=== PATIENT | female | born 1950 | race Caucasian/White ===

== ENCOUNTER 2023-03-15 05:11 | Outpatient (RCR) | payer MEDICARE, SELFPAY | END 2023-04-13 23:59 | disposition home or self-care (01) | LOC: MM 05:11 | PROVIDERS: PCP Internal Medicine; Visit Provider Internal Medicine | DX: Z51.81 Encounter for therapeutic drug level monitoring (principal); Z79.01 Long term (current) use of anticoagulants ==

== ENCOUNTER 2023-04-18 10:48 | Outpatient (RCR) | payer MEDICARE, SELFPAY | END 2023-05-14 16:44 | disposition home or self-care (01) | LOC: MM 10:48 | PROVIDERS: PCP Internal Medicine; Visit Provider Internal Medicine | DX: Z51.81 Encounter for therapeutic drug level monitoring (principal); Z79.01 Long term (current) use of anticoagulants ==

== ENCOUNTER 2023-05-15 08:56 | Outpatient (RCR) | payer MEDICARE, SELFPAY | END 2023-06-14 15:46 | disposition home or self-care (01) | LOC: MM 08:56 | PROVIDERS: Visit Provider Internal Medicine | DX: Z51.81 Encounter for therapeutic drug level monitoring (principal); Z79.01 Long term (current) use of anticoagulants | CPT/HCPCS: 85610; G0463 ==

== ENCOUNTER 2023-06-15 07:56 | Outpatient (RCR) | payer MEDICARE, SELFPAY | END 2023-07-13 16:30 | disposition home or self-care (01) | LOC: MM 07:56 | PROVIDERS: PCP Internal Medicine; Visit Provider Internal Medicine | DX: Z51.81 Encounter for therapeutic drug level monitoring (principal); Z79.01 Long term (current) use of anticoagulants; I82.409 Acute embolism and thrombosis of unspecified deep veins of unspecified lower extremity | CPT/HCPCS: 85610; G0463 ==

== ENCOUNTER 2023-06-15 09:45 | Outpatient (OUT) | payer MEDICARE, SELFPAY ==
--- NOTE | 2023-06-15 10:01 | MM_ITS ---
Patient: TA HIRSCH Exam Date: 06/15/2023 : 1950 Gender:F Ordering : DR Shawn Hirsch D.O. Admission #: [id number] Family : Order #: [id number] CLICK HERE TO VIEW EXAM RADIOLOGY REPORT PROCEDURE: MM TOMOSYNTHESIS SCREENING BI COMPARISON: MG MAMM SCREEN 3D [facility] CAD, 06/14/2022. MG MAMM SCREEN 3D [facility] CAD, 06/01/2021. INDICATIONS: Screening Calculator Name NCI Breast Cancer Risk Assessment Tool 5 Year Breast Cancer Risk 3.40% Lifetime Breast Cancer Risk 9.30% Personal Breast Cancer No Personal Ovarian Cancer No Treatments None Family Cancers Mother with breast cancer at age 52; Father with gallbladder cancer at age 76; Sister with uterine cancer at age 64. LOCATION: [facility] BREAST COMPOSITION: Scattered areas fibroglandular density. FINDINGS: DIAGNOSTIC CATEGORY 1--NEGATIVE. NO CHANGE FROM COMPARISON ASSESSMENT. Scattered benign-appearing calcifications are present. Scattered benign-appearing lymph nodes are present. RIGHT BREAST: No significant suspicious finding. LEFT BREAST: No significant suspicious finding. RECOMMENDATIONS: ROUTINE MAMMOGRAM AND CLINICAL EVALUATION IN 12 MONTHS. PLEASE NOTE: A NORMAL MAMMOGRAM DOES NOT EXCLUDE THE POSSIBILITY OF BREAST CANCER. A CLINICALLY SUSPICIOUS PALPABLE LUMP SHOULD BE BIOPSIED. Dictated by: Heber Marin MD on 06/15/2023 at 14:55 Approved by: Heber Marin MD on 06/15/2023 at 14:56
[2023-06-15 10:52] LABS: Basophils Absolute Auto 0.1 10^3/uL (0.0-0.1); Basophils Percent Auto 0.9 % (0.2-2.0); Eosinophils Absolute Auto 0.1 10^3/uL (0.0-0.7); Eosinophils Percent Auto 1.3 % (0.9-7.0); Hematocrit 39.7 % (36.0-48.0); Hemoglobin 12.5 g/dL (12.0-16.0); Immature Granulocytes Abs Auto 0.02 10^3/uL (0.00-0.03); Immature Granulocytes Pct Auto 0.4 % (0.0-0.5); Lymphocytes Absolute Auto 1.2 10^3/uL (1.2-3.8); Lymphocytes Percent Auto 21.5 % (20.5-60.0); Mean Corpuscular HGB Conc 31.5 g/dL (29.9-35.2); Mean Corpuscular Hemoglobin 30.2 pg (26.7-34.0); Mean Corpuscular Volume 95.9 fL (81.0-99.0); Mean Platelet Volume 9.9 fL (9.5-13.5); Monocytes Absolute Auto 0.5 10^3/uL (0.3-0.8); Monocytes Percent Auto 9.5 % (1.7-12.0); Neutrophils Absolute Auto 3.7 10^3/uL (1.4-6.5); Neutrophils Percent Auto 66.4 % (43.0-75.0); Platelet Count 154 10^3/uL (150-450); Red Blood Count 4.14 10^6/uL (4.20-5.40); Red Cell Distribution Width 12.5 % (11.0-15.0); White Blood Count 5.6 10^3/uL (4.0-11.0)
[2023-06-15 11:18] LABS: Alanine Aminotransferase 22 U/L (14-59); Anion Gap 7.7; BUN Creatinine Ratio 24.5; Calcium 9.4 mg/dL (8.5-10.1); Chloride 108 mmol/L (98-107); Chol HDL Ratio 2.9; Cholesterol 209 mg/dL (<=200); Estimated GFR (African America 45 (>=60); Estimated GFR (Non-African Ame 37 (>=60); Glucose 96 mg/dL (74-106); HDL Cholesterol 72 mg/dL (40-60); Potassium 4.7 mmol/L (3.5-5.1); Sodium 139 mmol/L (136-145); Thyroid Stimulating Hormone 2.121 uIU/mL (0.358-3.740); Triglycerides 150 mg/dL (<=150)
== END 2023-06-15 09:46 | disposition home or self-care (01) ==
LOC: LAB 09:46
PROVIDERS: PCP Internal Medicine; Visit Provider Internal Medicine
DX: E78.00 Pure hypercholesterolemia, unspecified (principal); I10 Essential (primary) hypertension; Z12.31 Encounter for screening mammogram for malignant neoplasm of breast; Z79.899 Other long term (current) drug therapy; Z80.3 Family history of malignant neoplasm of breast; Z80.8 Family history of malignant neoplasm of other organs or systems
CPT/HCPCS: 36415; 77063; 77067; 80048; 80061; 84443; 84460; 85025

== ENCOUNTER 2023-07-16 01:25 | Outpatient (RCR) | payer MEDICARE, SELFPAY | END 2023-08-14 17:09 | disposition home or self-care (01) | LOC: MM 01:25 | PROVIDERS: PCP Internal Medicine; Visit Provider Internal Medicine | DX: Z51.81 Encounter for therapeutic drug level monitoring (principal); Z79.01 Long term (current) use of anticoagulants; I82.409 Acute embolism and thrombosis of unspecified deep veins of unspecified lower extremity | CPT/HCPCS: 85610; G0463 ==

== ENCOUNTER 2023-08-15 00:32 | Outpatient (RCR) | payer MEDICARE, SELFPAY | END 2023-09-13 16:34 | disposition home or self-care (01) | LOC: MM 00:32 | PROVIDERS: PCP Internal Medicine; Visit Provider Internal Medicine | DX: Z51.81 Encounter for therapeutic drug level monitoring (principal); Z79.01 Long term (current) use of anticoagulants | CPT/HCPCS: 85610; G0463 ==

== ENCOUNTER 2023-09-14 08:48 | Outpatient (RCR) | payer MEDICARE, SELFPAY | END 2023-10-12 14:43 | disposition home or self-care (01) | LOC: MM 08:48 | PROVIDERS: PCP Internal Medicine; Visit Provider Internal Medicine | DX: Z51.81 Encounter for therapeutic drug level monitoring (principal); Z79.01 Long term (current) use of anticoagulants; I82.409 Acute embolism and thrombosis of unspecified deep veins of unspecified lower extremity | CPT/HCPCS: 85610; G0463 ==

== ENCOUNTER 2023-10-15 00:24 | Outpatient (RCR) | payer MEDICARE, SELFPAY | END 2023-11-14 15:33 | disposition home or self-care (01) | LOC: MM 00:24 | PROVIDERS: PCP Internal Medicine; Visit Provider Internal Medicine | DX: Z51.81 Encounter for therapeutic drug level monitoring (principal); Z79.01 Long term (current) use of anticoagulants | CPT/HCPCS: 85610; G0463 ==

== ENCOUNTER 2023-11-15 01:14 | Outpatient (RCR) | payer MEDICARE, SELFPAY | END 2023-12-13 17:04 | disposition home or self-care (01) | LOC: MM 01:14 | PROVIDERS: PCP Internal Medicine; Visit Provider Internal Medicine | DX: Z51.81 Encounter for therapeutic drug level monitoring (principal); Z79.01 Long term (current) use of anticoagulants; I82.409 Acute embolism and thrombosis of unspecified deep veins of unspecified lower extremity | CPT/HCPCS: 85610; G0463 ==

== ENCOUNTER 2023-12-14 01:00 | Outpatient (RCR) | payer MEDICARE, SELFPAY | END 2024-01-11 12:57 | disposition home or self-care (01) | LOC: MM 01:00 | PROVIDERS: PCP Internal Medicine; Visit Provider Internal Medicine | DX: Z51.81 Encounter for therapeutic drug level monitoring (principal); Z79.01 Long term (current) use of anticoagulants; I82.409 Acute embolism and thrombosis of unspecified deep veins of unspecified lower extremity | CPT/HCPCS: 85610; G0463 ==

== ENCOUNTER 2024-01-14 03:10 | Outpatient (RCR) | payer MEDICARE, SELFPAY | END 2024-02-12 17:42 | disposition home or self-care (01) | LOC: MM 03:10 | PROVIDERS: PCP Internal Medicine; Visit Provider Internal Medicine | DX: Z51.81 Encounter for therapeutic drug level monitoring (principal); Z79.01 Long term (current) use of anticoagulants; I82.409 Acute embolism and thrombosis of unspecified deep veins of unspecified lower extremity | CPT/HCPCS: 85610; G0463 ==

== ENCOUNTER 2024-01-25 09:41 | Outpatient (OUT) | payer MEDICARE, MEDICAID, SELFPAY ==
--- OUTSIDE RECORDS SUMMARY | 2024-01-25 10:02 | XMS_ITS | CCD ---
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 Role Phone Shama Nice Unavailable Shawn Hirsch Unavailable FAWWAD, ADHIKARI H Attending Unavailable FAWWAD, ADHIKARI H Admitting Unavailable BALL, DR BLAKE Primary Care Unavailable FAWWAD, ADHIKARI H Attending Unavailable FAWWAD, ADHIKARI H Admitting Unavailable BALL, DR BLAKE Primary Care Unavailable FAWWAD, ADHIKARI H Attending Unavailable FAWWAD, ADHIKARI H Admitting Unavailable BALL, DR BLAKE Primary Care Unavailable BALL, DR BLAKE Primary Care Unavailable BALL, DR BLAKE Attending Unavailable BALL, DR BLAKE Admitting Unavailable FAWWAD, ADHIKARI H Attending Unavailable FAWWAD, ADHIKARI H Admitting Unavailable BALL, DR BLAKE Primary Care Unavailable FAWWAD, ADHIKARI H Attending Unavailable FAWWAD, ADHIKARI H Admitting Unavailable BALL, DR BLAKE Primary Care Unavailable FAWWAD, ADHIKARI H Attending Unavailable FAWWAD, ADHIKARI H Admitting Unavailable BALL, DR BLAKE Primary Care Unavailable FAWWAD, ADHIKARI H Attending Unavailable FAWWAD, ADHIKARI H Admitting Unavailable BALL, DR BLAKE Primary Care Unavailable FAWWAD, ADHIKARI H Attending Unavailable BALL, DR BLAKE Primary Care Unavailable FAWWAD, ADHIKARI H Admitting Unavailable BALL, DR BLAKE Consulting Unavailable BALL, DR BLAKE Attending Unavailable BALL, DR BLAKE Referring Unavailable BALL, DR BLAKE Admitting Unavailable BALL, DR BLAKE Primary Care Unavailable BALL, DR BLAKE Consulting Unavailable BALL, DR BLAKE Attending Unavailable BALL, DR BLAKE Admitting Unavailable BALL, DR BLAKE Primary Care Unavailable WEST, DR RODOLFO Khan Consulting Unavailable FAWWAD, ADHIKARI H Attending Unavailable FAWWAD, ADHIKARI H Admitting Unavailable BALL, DR BLAKE Primary Care Unavailable SHAIKH Graciela SMITH Attending Unavailable SHAIKH Graciela SMITH Admitting Unavailable DR SHAWN HIRSCH Primary Care Unavailable SHAIKH Graciela SMITH Attending Unavailable SHAIKH Graciela SMITH Admitting Unavailable DR SHAWN HIRSCH Primary Care Unavailable ISABEL NGUYEN Attending Unavailable Allergies Allergy Classification Reported Allergen(s) Allergy Type Date of Onset Reaction(s) Facility (10 sources) Iodine Drug Allergy rash and throat swelling [facility] Other (1 source) Iodine and Iodide Containing Products Drug allergy (disorder) [facility] Repository (4 sources) patient allergy list reviewed by nurse or physicia Propensity to adverse reactions Comment:Done [facility] Other (4 sources) Allergies Reconciled Propensity to adverse reactions Unknown [facility] Other Medications Current Medications Medication Drug Class(es) Dates Sig (Normalized) Sig (Original) amLODIPine 5 mg oral tablet (2 sources) Dihydropyridine Calcium Channel Em Start: 01-19-2024 take 5 mg by mouth once daily Amlodipine Active 5 MG PO Daily January 19, 2024 12:00am Start: 10-24-2023 take 1 tablet by johnny th every twenty-four hours amLODIPine Besylate 5 MG 1 tablet Orally Once a day for 30 days Oct, Active clonazePAM (2 sources) Benzodiazepine clonazePAM Activ e fluticasone propionate 0.05 mg/actuat metered dose nasal spray (13 sources) Corticosteroid Start: 01-19-2024 Fluticasone Propionate Active 1 SPRAY INTRANASAL Twice daily January 19, 2024 12:00am Start: 06-17-2019 take 1 spray(s) nasa l route twice daily Fluticasone Propionate 50 MCG/ACT 1 spray in each nostril Nasally Twice a day for 10 days Jun, Active Start: 06-17-2019 take 1 spray(s) nasa l route twice daily Fluticasone Propionate 50 MCG/ACT 1 spray in each nostril Nasally Twice a day for 10 days Jun, Active Fluticasone Prop ionate Active hydroCHLOROthiazide / Lisinopril (2 sources) Thiazide Diuretic, Angiotensin Converting Enzyme Inhibitor Lisinopril-hydroCHLO ROthiazide Active lisinopril 5 mg oral tablet (7 sources) Angiotensin Converting Enzyme Inhibitor Star t: 05-15 23 take 1 tablet by mouth every twenty-fou r hours Lisinopril 5 MG 1 tablet Orally Once a day for 100 days May, Active warfarin sodium 5 mg oral tablet (11 sources) Vitamin K Antagonist Star t: 04-03 24 Warfarin Active 5 MG PO As Directed January 19, 2024 12:00am Warfarin Sodium 5 MG 1 tablet Orally as directed Active Warfarin Sodium Active Completed/Discontinued Medications Medication Drug Class(es) Dates Sig (Normalized) Sig (Original) Calcium (10 sources) Phosphate Binder, Calcium Calcium Not-Taking/P RN Calcium Not-Taki ng Calcium Active Problems Active Problems Problem Classification Problem Date Documented Da te Episodic/Chronic Anxiety disorders (15 sources) Generalized anxiety disorder; Translations: [Generalized anxiety disorder] Chronic Cardiac dysrhythmias (11 sources) Paroxysmal atrial fibrillation; Translations: [Paroxysmal atrial fibrillation] Chronic Chronic kidney disease (10 sources) Chronic kidney disease stage 3B ; Translations: [Stage 3b chronic kidney disease] 01-19-2024 Chronic Chronic ulcer of skin (4 sources) Ulcer of lower extremity; Translations: [Ulcer of lower limb, unspecified] Onset: 02-14-2016 Chronic Deficiency and other anemia (13 sources) Anemia; Translations: [Anemia, unspecified] 01-19-2024 Episodic Disorders of lipid metabolism (15 sources) Pure hypercholesterolemia ; Translations: [Pure hypercholesterolemia , unspecified] Chronic Essential hypertension (20 sources) Essential hypertension; Translations: [Unspecified essential hypertension] Chronic Glaucoma (13 sources) Glaucoma; Translations: [Unspecified glaucoma] 01-19-2024 Chronic Hypertension with complications and secondary hypertension (16 sources) Hypertensive chronic kidney disease with stage 1 through stage 4 chronic kidney disease, or unspecified chronic kidney disease; Translations: [Malignant hypertensive chronic kidney disease] Onset: 06-15-2022 Chronic Immunizations and screening for infectious disease (4 sources) Vaccination given; Translations: [Encounter for immunization] Episodic Mood disorders (12 sources) Major depression single episode, in partial remission; Translations: [Major depressive disorder, single episode, in partial or unspecified remission] Onset: 10-19-2015 Chronic Nutritional deficiencies (4 sources) Vitamin D deficiency; Translations: [Vitamin D deficiency, unspecified] Onset: 08-31-2018 Chronic Osteoarthritis (4 sources) Osteoarthritis; Translations: [Polyosteoarthritis, unspecified] Chronic Other aftercare (5 sources) Encounter for therapeutic drug level monitoring; Translations: [facility]] Onset: 02-10-2023 Episodic Other aftercare (1 source) assistant terminal manager (current) use of anticoagulants; Translations: [CARE HOME CURRNT USE ANTICOAGULANTS] Onset: 03-14-2023 Episodic Other aftercare (4 sources) Long-term current use of drug therapy; Translations: [Other terminal operator (current) drug therapy] Episodic Other circulatory disease (2 sources) Raynaud's phenomenon; Translations: [Raynaud's syndrome without gangrene] 01-19-2024 Chronic Other circulatory disease (2 sources) Raynaud's syndrome without gangrene; Translations: [Raynaud's syndrome] Chronic Other circulatory disease (4 sources) Orthostatic hypotension; Translations: [Orthostatic hypotension] Episodic Other diseases of veins and lymphatics (4 sources) Chronic venous hypertension (idiopathic) with ulcer of unspecified lower extremity; Translations: [Chronic venous hypertension (idiopathic) with ulcer of unspecified lower extremity] Onset: 02-14-2016 Chronic Other diseases of veins and lymphatics (17 sources) Peripheral venous insufficiency; Translations: [Venous insufficiency (chronic) (peripheral)] Onset: 01-28-2016 01-19-2024 Episodic Other diseases of veins and lymphatics (2 sources) Venous insufficiency (chronic) (peripheral); Translations: [Venous (peripheral) insufficiency, unspecified] Episodic Other female genital disorders (4 sources) Abnormal uterine bleeding; Translations: [Abnormal uterine and vaginal bleeding, unspecified] Onset: 12-03-2013 Chronic Other gastrointestinal disorders (4 sources) Irritable bowel syndrome; Translations: [Irritable bowel syndrome] Chronic Other inflammatory condition of skin (9 sources) Lichen simplex chronicus; Translations: [Lichen simplex chronicus] 01-19-2024 Episodic Other injuries and conditions due to external causes (4 sources) History of fall; Translations: [History of falling] Episodic Other lower respiratory disease (9 sources) Nodule of lung; Translations: [Solitary pulmonary nodule] 01-19-2024 Episodic Other lower respiratory disease (4 sources) Solitary nodule of lung; Translations: [Solitary pulmonary nodule] Episodic Other nutritional; endocrine; and metabolic disorders (5 sources) Obesity; Translations: [Obesity, unspecified] 01-23-2024 Chronic Other nutritional; endocrine; and metabolic disorders (16 sources) Body mass index 40+ - severely obese; Translations: [Body Mass Index 40.0-44.9, adult] Onset: 01-12-2016 Chronic Other nutritional; endocrine; and metabolic disorders (4 sources) Obese class II; Translations: [Body mass index 39.0-39.9, adult] Onset: 01-12-2016 Chronic Other nutritional; endocrine; and metabolic disorders (8 sources) Body mass index 30+ - obesity; Translations: [Body mass index (BMI) 37.0-37.9, adult] Chronic Other nutritional; endocrine; and metabolic disorders (8 sources) Severe obesity; Translations: [Morbid (severe) obesity due to excess calories] Chronic Other nutritional; endocrine; and metabolic disorders (1 source) Morbid (severe) obesity due to excess calories Chronic Other nutritional; endocrine; and metabolic disorders (1 source) Body mass index (BMI) 37.0-37.9, adult Chronic Other nutritional; endocrine; and metabolic disorders (1 source) Obesity, unspecified; Translations: [Obesity, unspecified] 01-23-2024 Chronic Other upper respiratory infections (20 sources) Acute maxillary sinusitis; Translations: [Acute maxillary sinusitis] Onset: 07-27-2014 Episodic Otitis media and related conditions (6 sources) Acute otitis media with effusion; Translations: [Acute otitis media with effusion] Episodic Phlebitis; thrombophlebitis and thromboembolism (1 source) Chronic embolism and thrombosis of unspecified deep veins of unspecified lower extremity; Translations: [CHR EMB THROMB UNS DP VN UNS LW EXT] Onset: 07-17-2022 Chronic Phlebitis; thrombophlebitis and thromboembolism (20 sources) Acute embolism and thrombosis of unspecified deep veins of unspecified lower extremity; Translations: [Acute deep vein thrombosis of lower limb] Onset: 12-06-2014 Episodic Residual codes; unclassified (17 sources) Obstructive sleep apnea syndrome; Translations: [Obstructive sleep apnea (adult) (pediatric)] Onset: 11-07-2017 01-19-2024 Chronic Residual codes; unclassified (13 sources) Periodic limb movement disorder; Translations: [Periodic limb movement disorder] 01-19-2024 Chronic Residual codes; unclassified (2 sources) Obstructive sleep apnea (adult) (pediatric); Translations: [Obstructive sleep apnea (adult)(pediatric)] Chronic Residual codes; unclassified (4 sources) Postmenopausal state; Translations: [Asymptomatic menopausal state] Episodic Spondylosis; intervertebral disc disorders; other back problems (13 sources) Lumbosacral spondylosis without myelopathy; Translations: [Spondylosis without myelopathy or radiculopathy, lumbar region] 01-19-2024 Chronic Unclassified (1 source) CHRN KIDNEY DISEASE STG 3 UNSP; Translations: [CHRN KIDNEY DISEASE STG 3 UNSP] Onset: 06-16-2022 Past or Other Problems Problem Classification Problem Date Documented Da te Episodic/Chronic Acute bronchitis (4 sources) Acute bronchitis; Translations: [Acute bronchitis, unspecified] Onset: 07-27-2014 Episodic Bacterial infection; unspecified site (4 sources) Bacterial infectious disease; Translations: [Bacterial infection, unspecified, in conditions classified elsewhere and of unspecified site] Onset: 12-10-2017 Episodic Chronic kidney disease (1 source) Chronic kidney disease Conditions associated with dizziness or vertigo (4 sources) Benign paroxysmal positional vertigo; Translations: [Benign paroxysmal vertigo, left ear] Resolved: 02-24-2021 Episodic Diseases of mouth; excluding dental (4 sources) Aphthous ulcer of mouth; Translations: [Oral aphthae] Onset: 05-20-2018 Episodic Genitourinary symptoms and ill-defined conditions (8 sources) Dysuria; Translations: [Dysuria] Onset: 06-11-2015 Episodic Intracranial injury (4 sources) Concussion with no loss of consciousness; Translations: [Concussion without loss of consciousness, initial encounter] Resolved: 12-20-2020 Episodic Malaise and fatigue (4 sources) Malaise and fatigue; Translations: [Other malaise and fatigue] Onset: 01-03-2017 Episodic Other aftercare (1 source) Other prison (current) drug therapy; Translations: [OTH BIOFUELS TECHNOLOGY DEVELOPMENT MANAGER CURRENT DRUG THERAPY] Onset: 06-16-2022 Episodic Other connective tissue disease (4 sources) Fibromyalgia; Translations: [Fibromyalgia] Onset: 06-26-2018 Episodic Other lower respiratory disease (8 sources) Dyspnea; Translations: [Dyspnea, unspecified] Onset: 11-27-2014 Episodic Other nutritional; endocrine; and metabolic disorders (4 sources) Hypercalcemia; Translations: [Hypercalcemia] Resolved: 11-29-2021 Chronic Other screening for suspected conditions (not mental disorders or infectious disease) (8 sources) Encounter for screening mammogram for malignant neoplasm of breast; Translations: [Coag./bleeding tests abnormal] Onset: 04-13-2016 Episodic Other skin disorders (4 sources) Actinic keratosis; Translations: [Actinic keratosis] Onset: 05-19-2015 Episodic Residual codes; unclassified (1 source) Family history of malignant neoplasm of breast; Translations: [FAMILY HX MALIG NEOPLASM OF BREAST] Onset: 06-16-2022 Episodic Residual codes; unclassified (1 source) Family history of malignant neoplasm of other genital organs; Translations: [FAM HX MALIG NEOPLSM OTH GENIT ORGN] Onset: 06-16-2022 Episodic Residual codes; unclassified (1 source) Family history of malignant neoplasm of digestive organs; Translations: [FAM HX MALIG NEOPLASM DIGESTIV ORGN] Onset: 06-16-2022 Episodic Residual codes; unclassified (4 sources) Requires influenza virus vaccination; Translations: [Need for prophylactic vaccination and inoculation, Influenza] Onset: 07-09-2018 Episodic Residual codes; unclassified (4 sources) Edema; Translations: [Edema] Onset: 11-27-2014 Episodic Skin and subcutaneous tissue infections (4 sources) Cellulitis and abscess of lower leg; Translations: [Cellulitis and abscess of leg, except foot] Onset: 01-28-2016 Episodic Sprains and strains (16 sources) Sprain of shoulder and upper arm; Translations: [Strain of unspecified muscle, fascia and tendon at shoulder and upper arm level, right arm, initial encounter] Onset: 05-20-2018 Resolved: 11-29-2021 Episodic Superficial injury; contusion (8 sources) Contusion of right shoulder; Translations: [Contusion of right shoulder, initial encounter] Onset: 04-13-2016 Resolved: 12-20-2020 Episodic Unclassified (1 source) Contact with and (suspected) exposure to covid-19 Z20.822 Onset: 06-17-2022 Resolved: 06-17-2022 Results Test Name Value Interpretation Reference Range Facility SARS-CoV-2 (COVID-19) RNA NA A+probe Ql (Resp)on 06-17-2022 SARS-CoV-2 (COVID-19) RNA MARLON+probe Ql (Unsp spec) Negative [facility] Other CBC AUTO DIFFon 06-15-2022 BASO # 0.0 103/ul Normal 0.0-0.1 [facility] Comment on above: Performed By: #### C BC #### [facility] [address] [place] [address] Dr. Perez Jaimes Basophils/100 WBC (Bld) 0.5 % Normal 0.2-2.0 [facility] Comment on above: Performed By: #### C BC #### [facility] [address] [place] [address] Dr. Perez Jaimes EO # 0.1 103/ul Normal 0.0-0.7 [facility] Comment on above: Performed By: #### C BC #### [facility] [address] [place] [address] Dr. Perez Jaimes Eosinophils/100 WBC (Bld) 1.1 % Normal 0.9-7.0 [facility] Comment on above: Performed By: #### C BC #### [facility] [address] [place] [address] Dr. Perez Jaimes Erythrocyte distribution width (RBC) [Ratio] 12.6 % Normal 11.0-15.0 [facility] Comment on above: Performed By: #### C BC #### [facility] [address] [place] [address] Dr. Perez Jaimes Hematocrit (Bld) [Volume fraction] 41.3 % Normal 36.0-48.0 [facility] Comment on above: Performed By: #### C BC #### [facility] [address] [place] [address] Dr. Perez Jaimes Hemoglobin (Bld) [Mass/Vol] 12.9 g/dL Normal 12.0-16.0 [facility] Comment on above: Performed By: #### C BC #### [facility] [address] [place] [address] Dr. Perez Jaimes IG # 0.02 10e3/ul Normal 0.00-0.03 [facility] Comment on above: Performed By: #### C BC #### [facility] [address] [place] [address] Dr. Perez Jaimes IG % 0.3 % Normal 0.0-0.5 [facility] Comment on above: Performed By: #### C BC #### [facility] [address] [place] [address] Dr. Perez Jaimes LYMPH # 1.3 103/ul Normal 1.2-3.8 [facility] Comment on above: Performed By: #### C BC #### [facility] [address] [place] [address] Dr. Perez Jaimes Lymphocytes/100 WBC (Bld) 20.2 % Critically low 20.5-60.0 [facility] Comment on above: Performed By: #### C BC #### [facility] [address] [place] [address] Dr. Perez Jaimes MANUAL DIFF REQ NO Normal [facility] Comment on above: Performed By: #### C BC #### [facility] [address] [place] [address] Dr. Perez Jaimes MCH (RBC) [Entitic mass] 29.5 pg Normal 26.7-34.0 [facility] Comment on above: Performed By: #### C BC #### [facility] [address] [place] [address] Dr. Perez Jaimes MCHC (RBC) [Mass/Vol] 31.2 g/dL Normal 29.9-35.2 [facility] Comment on above: Performed By: #### C BC #### [facility] [address] [place] [address] Dr. Perez Jaimes MCV (RBC) [Entitic vol] 94.5 fL Normal 81.0-99.0 [facility] Comment on above: Performed By: #### C BC #### [facility] [address] [place] [address] Dr. Perze Jaimes MONO # 0.5 103/ul Normal 0.3-0.8 [facility] Comment on above: Performed By: #### C BC #### [facility] [address] [address] [address] Perez Jaimes Monocytes/100 WBC (Bld) 8.7 % Normal 1.7-12.0 [facility] Comment on above: Performed By: #### C BC #### [facility] [address] [address] [address] Perez Jaimes NEUT # 4.3 103/ul Normal 1.4-6.5 [facility] Comment on above: Performed By: #### C BC #### [facility] [address] [address] [address] Perez Jaimes Neutrophils/100 WBC (Bld) 69.2 % Normal 43.0-75.0 [facility] Comment on above: Performed By: #### C BC #### [facility] [address] [place] [address] Dr. Perez Jaimes Platelet mean volume (Bld) [Entitic vol] 9.6 fL Normal 9.5-13.5 [facility] Comment on above: Performed By: #### C BC #### [facility] [address] [place] [address] Dr. Perez Jaimes PLT 178 103/ul Normal 150-450 [facility] Comment on above: Performed By: #### C BC #### [facility] [address] [place] [address] Dr. Perez Jaimes RBC 4.37 106/ul Normal 4.20-5.40 [facility] Comment on above: Performed By: #### C BC #### [facility] [address] [place] [address] Dr. Perez Jaimes WBC 6.2 103/ul Normal 4.0-11.0 [facility] Comment on above: Performed By: #### C BC #### [facility] [address] [place] [address] Dr. Perez Jaimes LIPID PROFILEon 06-15-2022 CHOL-HDL RATIO NORM SEE BELOW Normal [facility] Comment on above: Result Comment: 3.3 - 4.4 LOW RISK 4.4 - 7.1 AVERAGE RISK 7.1 - 11.0 MODERATE RISK >11.0 HIGH RISK Performed By: #### B MP, LIPID #### [facility] [address] [place] [address] Dr. Perez Jaimes Cholesterol [Mass/Vol] 214 mg/dL Critically high <=200 [facility] Comment on above: Performed By: #### B MP, LIPID #### [facility] [address] [address] [address] Perez Jaimes Cholesterol in HDL [Mass/Vol] 70 mg/dL Critically high 40-60 [facility] Comment on above: Performed By: #### B MP, LIPID #### [facility] [address] [place] [address] Dr. Perez Jaimes Cholesterol in LDL [Mass/Vol] 109.4 mg/dL Normal [facility] Comment on above: Performed By: #### B MP, LIPID #### [facility] [address] [place] [address] Dr. Perez Jaimes Cholesterol.total/ Cholesterol in HDL [Mass ratio] 3.1 {ratio} Normal [facility] Comment on above: Performed By: #### B MP, LIPID #### [facility] [address] [place] [address] Dr. Perez Jaimes HDL NORMAL > or = 60 mg/dl - LOW CARDIOVASCULAR RISK <40 mg/dl - HIGH CARDIOVASCULAR RISK Normal [facility] Comment on above: Performed By: #### B MP, LIPID #### [facility] [address] [place] [address] Dr. Perez Jaimes LDL CALC NORMAL SEE BELOW Normal [facility] Comment on above: Result Comment: <100 mg/dl OPTIMAL 100 - 129 mg/dl NEAR OR ABOVE OPTIMAL 130 - 159 mg/dl BORDERLINE HIGH 160 - 189 mg/dl HIGH >190 mg/dl VERY HIGH Performed By: #### B MP, LIPID #### [facility] [address] [place] [address] Dr. Perez Jaimes Triglyceride [Mass/Vol] 173 mg/dL Critically high <=150 [facility] Comment on above: Performed By: #### B MP, LIPID #### [facility] [address] [address] [address] Perez Jaimes VLDL CALC 34.6 mg/dL Normal [facility] Comment on above: Performed By: #### B MP, LIPID #### [facility] [address] [address] [address] Perez Jaimes PROF CHEM 8 (BAS METB)on Anion gap [Moles/Vol] 12.6 mmol/L Normal [facility] Comment on above: Performed By: #### B MP, LIPID #### [facility] [address] [address] [address] Perez Jaimes Calcium [Mass/Vol] 9.7 mg/dL Normal 8.5-10.1 [facility] Comment on above: Performed By: #### B MP, LIPID #### [facility] [address] [place] [address] Dr. Perez Jaimes Chloride [Moles/Vol] 103 mmol/L Normal 98-107 [facility] Comment on above: Performed By: #### B MP, LIPID #### [facility] [address] [place] [address] Dr. Perez Jaimes CO2 [Moles/Vol] 27.0 mmol/L Normal 21.0-32.0 [facility] Comment on above: Performed By: #### B MP, LIPID #### [facility] [address] [place] [address] Dr. Perez Jaimes Creatinine [Mass/Vol] 1.32 mg/dL Critically high 0.55-1.02 [facility] Comment on above: Performed By: #### B MP, LIPID #### [facility] [address] [place] [address] Dr. Perez Jaimes EGFR-AF [place] 48 mL/min/1.73m2 Critically low >=60 [facility] Comment on above: Performed By: #### B MP, LIPID #### [facility] [address] [place] [address] Dr. Perez Jaimes EGFR-NON AF [place] 40 mL/min/1.73m2 Critically low >=60 [facility] Comment on above: Performed By: #### B MP, LIPID #### [facility] [address] [address] [address] Perez Jaimes Glucose [Mass/Vol] 99 mg/dL Normal 74-106 [facility] Comment on above: Performed By: #### B MP, LIPID #### [facility] [address] [address] [address] Perez Jaimes Potassium [Moles/Vol] 4.6 mmol/L Normal 3.5-5.1 [facility] Comment on above: Performed By: #### B MP, LIPID #### [facility] [address] [address] [address] Perez Jaimes Sodium [Moles/Vol] 138 mmol/L Normal 136-145 [facility] Comment on above: Performed By: #### B MP, LIPID #### [facility] [address] [address] [address] Perez Jaimes Urea nitrogen [Mass/Vol] 31.0 mg/dL Critically high 7.0-18.0 [facility] Comment on above: Performed By: #### B MP, LIPID #### [facility] [address] [address] [address] Perez Jaimes Urea nitrogen/Creatinin e [Mass ratio] 23.5 mg/mg Normal [facility] Comment on above: Performed By: #### B MP, LIPID #### [facility] [address] [address] [address] Perez Jaimes MG MAMM SCREEN 3D WAI CADon 06-14-2022 MG MAMM SCREEN 3D WAI CAD Patient: SHITAL HIRSCH Exam Date: 06/14/2022 : 1950 Gender:F Ordering : DR SHAWN HIRSCH D.O. Admission #: [id number] Family : Order #: [id number] CLICK HERE TO VIEW EXAM RADIOLOGY REPORT PROCEDURE: MAMMOGRAM SCREENING 3D BILATERAL CAD COMPARISON: MG MAMM SCREEN WAI W CAD, 04/20/2020. MG MAMM SCREEN 3D WAI CAD, 06/01/2021. INDICATIONS: Screening mammography Calculator Name NCI Breast Cancer Risk Assessment Tool 5 Year Breast Cancer Risk 3.40% Lifetime Breast Cancer Risk 9.70% Personal Breast Cancer No Personal Ovarian Cancer No Treatments None Family Cancers Mother with breast cancer at age 52; Father with gallbladder cancer at age 76; Sister with uterine cancer at age 64. LOCATION: [facility] BREAST COMPOSITION: Scattered areas fibroglandular density. FINDINGS: DIAGNOSTIC CATEGORY 1--NEGATIVE. NO CHANGE FROM COMPARISON ASSESSMENT. Scattered benign-appearing calcifications are present. Scattered benign-appearing lymph nodes are present. RIGHT BREAST: No significant suspicious finding. LEFT BREAST: No significant suspicious finding. RECOMMENDATIONS: ROUTINE MAMMOGRAM AND CLINICAL EVALUATION IN 12 MONTHS. PLEASE NOTE: A NORMAL MAMMOGRAM DOES NOT EXCLUDE THE POSSIBILITY OF BREAST CANCER. A CLINICALLY SUSPICIOUS PALPABLE LUMP SHOULD BE BIOPSIED. Dictated by: Rodolfo Marin MD on 06/14/2022 at 12:39 Approved by: Rodolfo Marin MD on 06/14/2022 at 12:41 Normal [facility] Vital Signs Date Time Vital Sign Value Performing Clinician Facility 01-23-2024 10:14-0400 Body height 154.94 cm [facility] 01-23-2024 10:14-0400 Body mass index (BMI) [Ratio] 35.3 kg/m2 [facility] 01-23-2024 10:14-0400 Body weight 84.87 kg [facility] 01-23-2024 10:14-0400 Diastolic blood pressure 78 mm[Hg] [facility] 01-23-2024 10:14-0400 Heart rate 62 /min [facility] 01-23-2024 10:14-0400 Respiratory rate 12 /min [facility] 01-23-2024 10:14-0400 Systolic blood pressure 150 mm[Hg] [facility] 10-24-2023 10:00-0500 Body height 154.94 cm [employer] Other [facility] Other 10-24-2023 10:00-0500 Body mass index (BMI) [Ratio] 36.2 kg/m2 [employer] Other [facility] Other 10-24-2023 10:00-0500 Body weight 86.91 kg [employer] Other [facility] Other 10-24-2023 10:00-0500 Diastolic blood pressure 80 mm[Hg] Shawn Hirsch Other [facility] Other 10-24-2023 10:00-0500 Respiratory rate 12 /min Shawn Hirsch Other [facility] Other 10-24-2023 10:00-0500 Systolic blood pressure 139 mm[Hg] Shawn Hirsch Other [facility] Other Encounters Encounter Date Encounter Type Care Provider Facility Start: 01-23-2024 End: 01-23-2024 ambulatory [facility] Work Phone: Start: 01-23-2024 End: 01-23-2024 Patient encounter procedure [facility] Work Phone: Start: 12-27-2023 End: 12-27-2023 ambulatory ISABEL NGUYEN Not Available Start: 10-24-2023 End: 10-24-2023 ambulatory Shawn Hirsch Other [facility] Other Start: 10-24-2023 Office outpatient vi sit 25 minutes Shawn Hirsch [facility] Start: 10-09-2023 End: 10-09-2023 ambulatory Shawn Hirsch Other [facility] Other Start: 10-09-2023 Telephone encounter Shawn Hirsch [facility] Start: 06-21-2023 End: 06-21-2023 ambulatory Shawn Vince Other [facility] Other Start: 06-21-2023 Telephone encounter Shawn Hirsch [facility] Start: 06-19-2023 End: 06-19-2023 ambulatory Shawn Hirsch Other [facility] Other Start: 06-19-2023 Nursing evaluation o f patient and report Shawn Hirsch [facility] Start: 05-28-2023 End: 05-28-2023 ambulatory Shawn Hirsch Other [facility] Other Start: 05-28-2023 Telephone encounter Shawn Hirsch [facility] Start: 02-12-2023 End: 03-14-2023 ambulatory ADHIKARI H FAWWAD Facility:[facility] Start: 01-15-2023 End: 02-09-2023 ambulatory ADHIKARI H FAWWAD Facility:[facility] Start: 01-08-2023 End: 01-08-2023 ambulatory Shawn Hirsch Other [facility] Other Start: 01-08-2023 Telephone encounter Shawn Hirsch [facility] Start: 12-13-2022 End: 01-12-2023 ambulatory ADHIKARI H FAWWAD Facility:[facility] Start: 11-15-2022 End: 12-13-2022 ambulatory ADHIKARI H FAWWAD Facility:[facility] Start: 10-16-2022 End: 11-14-2022 ambulatory ADHIKARI H FAWWAD Facility:[facility] Start: 09-14-2022 End: 10-15-2022 ambulatory ADHIKARI H FAWWAD Facility:[facility] Start: 08-15-2022 End: 09-13-2022 ambulatory ADHIKARI H FAWWAD Facility:[facility] Start: 07-26-2022 End: 08-14-[address] SHAWN HIRSCH Facility:[facility] Start: 06-17-2022 End: 06-17-2022 ambulatory Shama Nice Other [facility] Other Start: 06-17-2022 Nursing evaluation o f patient and report Shama Nice [facility] Start: 06-15-2022 End: 06-16-[address] SHAWN HIRSCH Facility:[facility] Start: 06-15-2022 End: 07-15-2022 ambulatory ADHIKARI H FAWWAD Facility:[facility] Start: 06-14-2022 End: 06-15-[address] SHAWN HIRSCH Facility:[facility] Start: 05-23-2022 Adult health examination Vasquez Hirsch Other [facility] Other Start: 05-15-2022 End: 06-14-2022 ambulatory SHAIKH Graciela SMITH Facility:[facility] Start: 04-19-2022 End: 05-12-2022 ambulatory SHAIKH Graciela SMITH Facility:[facility] Start: 04-14-2022 End: 04-15-2022 ambulatory SHAIKH Graciela SMITH Facility:[facility] Start: 03-30-2020 Gynecological examin ation normal Shawn Hirsch Other [facility] Other Procedures Date Procedure Procedure Detail Performing Clinician Start: 01-03-2017 Hyperlipidemia screening Shawn Hirsch Other Start: 01-03-2017 Screening for malign ant neoplasm of colon Shawn Hirsch Other Start: 01-03-2017 Screening for osteoporosis Shawn Hirsch Other Start: 01-03-2017 Screening mammography B enjajada Hirsch Other Start: 01-12-2016 General examination of patient Shawn Hirsch Other Depression screening Suzi Hirsch Other Screening for malign ant neoplasm of breast Shawn Hirsch Other Plan of Treatment Date Care Activity Detail Author [facility] Immunizations Immunization Date Immunization Notes Care Provider Fa cility 06-19-2023 influenza, high dose seasonal, preservative-free Shawn Hirsch Other [facility] Other 06-19-2023 influenza virus vaccine, unspecified formulation [facility] 07-26-2022 influenza virus vaccine, split virus (incl. purified surface antigen) Shawn Hirsch Other [facility] Other 07-25-2022 influenza virus vaccine, unspecified formulation [facility] 07-25-2022 influenza, high dose seasonal, preservative-free Shawn Hirsch Other [facility] Other 08-08-2021 influenza virus vaccine, split virus (incl. purified surface antigen) Shawn Hirsch Other [facility] Other 08-08-2021 influenza virus vaccine, unspecified formulation [facility] 01-12-2021 COVID-19 Vaccine Pfi zer - Documentation Purposes Only Shawn Hirsch Other [facility] 07-06-2020 influenza virus vaccine, split virus (incl. purified surface antigen) Shawn Hirsch Other [facility] Other 07-06-2020 influenza virus vaccine, unspecified formulation [facility] 07-29-2019 influenza virus vaccine, split virus (incl. purified surface antigen) Shawn Hirsch Other [facility] Other 07-29-2019 influenza virus vaccine, unspecified formulation [facility] 07-09-2018 influenza virus vaccine, split virus (incl. purified surface antigen) Shawn Hirsch Other [facility] Other 07-09-2018 influenza virus vaccine, unspecified formulation [facility] 04-03-2018 influenza virus vaccine, split virus (incl. purified surface antigen) Shawn Hirsch Other [facility] Other 04-03-2018 influenza virus vaccine, unspecified formulation [facility] 01-11-2018 pneumococcal Conjuga te, unspecified formulation; Translations: [Need for prophylactic vaccination against Streptococcus pneumoniae (pneumococcus)] Shawn Hirsch Other [facility] Other 01-11-2018 pneumococcal polysaccharide vaccine, 23 valent Shawn Hirsch Other [facility] 08-03-2017 influenza virus vaccine, split virus (incl. purified surface antigen) Shawn Hirsch Other [facility] Other 08-03-2017 influenza virus vaccine, unspecified formulation [facility] 01-03-2017 pneumococcal conjuga te vaccine, 13 valent Shawn Hirsch Other [facility] 09-27-2016 influenza virus vaccine, split virus (incl. purified surface antigen) Shawn Hirsch Other [facility] Other 09-27-2016 influenza virus vaccine, unspecified formulation [facility] 07-23-2015 tetanus and diphther ia toxoids, adsorbed, preservative free, for adult use (5 Lf of tetanus toxoid and 2 Lf of diphtheria toxoid) Shawn Hirsch Other [facility] 07-30-2013 tetanus and diphther ia toxoids, adsorbed, preservative free, for adult use (5 Lf of tetanus toxoid and 2 Lf of diphtheria toxoid) Shawn Hirsch Other [facility] Payers Date Payer Category Payer Unknown [id number] 1958 Medicaid [id number] 2. [id number] 1958 Medicare [id number] 1950 Unknown [id number] 2.16.84 [id number] 1950 Unknown [id number] 2.16.84 0.1.159420.3.579.2.593 1950 Unknown [id number] 2.16.84 0.1.925187.3.579.2.593 1950 Unknown [id number] 2.16.84 0.1.623048.3.579.2.593 1950 Unknown [id number] 2.16.84 0.1.952715.3.579.2.593 1950 Unknown [id number] 2.16.84 0.1.226033.3.579.2.593 1950 Unknown [id number] 2.16.84 0.1.311297.3.579.2.593 1950 Unknown [id number] 2.16.84 0.1.642125.3.579.2.593 1950 Unknown [id number] 2.16.84 0.1.748146.3.579.2.593 1950 Unknown [id number] 2.16.84 0.1.825234.3.579.2.593 1950 Unknown [id number] 2.16.84 0.1.240565.3.579.2.593 1950 Unknown [id number] 2.16.84 0.1.345741.3.579.2.593 1950 Unknown [id number] 2.16.84 0.1.956275.3.579.2.593 1950 Unknown [id number] 2.16.84 0.1.909496.3.579.2.593 1950 Unknown [id number] 2.16.84 0.1.357877.3.579.2.1259 Medicare [id number] 2.1 [id number] Social History Date Type Detail Facility Sex Assigned At [facility] Other Start: 01-23-2024 Tobacco smoking stat [facility] Never smoked tobacco (finding) [facility] Start: 1950 Sex Assigned At Female F [facility] Evaluation note 10-24-2023 Note Date & Type Note Facility 10-24-2023 Evaluation note Encounter Date Diagnosis Assessment Notes Oct, Primary hypertension (ICD-10 - I10) This patient is instructed to consume a healthy, low-fat, low-salt diet. They are also encouraged to continue exercise to achieve/maintain a normal BMI. Patient is instructed on home BP measurements: - rest for 5 minutes w/o talking.- positioned w/ feet on floor and arm supported.- average best 2/3 readings w/ goal < 135/85. _update office in week Oct, Stage 3b chronic kidney disease (ICD-10 - N18.32) The patient is instructed on adequate control of hypertension and diabetes, if appropriate. They are also educated on the associated risks of NSAIDs and PPI use with kidney disease. They were instructed on adequate fluid balance and to avoid dehydration. Oct, Paroxysmal atrial fibrillation (ICD-10 - I48.0) This patient is in NSR or rate controlled. This patient is anticoagulated to prevent thromboembolic events. 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 No bleeding complications Oct, Raynaud's phenomenon without gangrene (ICD-10 - I73.00) Instructed to avoid cold exposure to hands. Change antihypertensive to Amlodipine from Lisinopril. Oct, Pure hypercholesterolemia (ICD-10 - E78.00) Instructed on diet and exercise with continued statin therapy.Discussed the beneficial effects of lowering cholesterol in reducing the risk for cerebrovascular and cardiovascular disease. Oct, Chronic venous insufficiency (ICD-10 - I87.2) Avoid salt and elevate lower extremities, support stockings, inspect legs and feet daily for blisters and ulcerations. Oct, GERARD (obstructive sleep apnea) (ICD-10 - G47.33) This patient is aware of the benefits associated with GERARD: With continued use, the patient reduces the risk for MT, CVA, HTN, cardiac dysrhythmias and sudden cardiac deaths.The patient is also aware of the association between GERARD and morning headaches, daytime somnolence, fatigue and obesity Noncompliant Oct, Morbid (severe) obesity due to excess calories (ICD-10 - E66.01) This patient has been instructed on a low-fat, high-fiber diet. They are instructed to reduce calories, portion sizes and snacks. It is recommended that they exercise for 30 minutes, 3-5 times weekly. Oct, Body mass index [BMI] 37.0-37.9, adult (ICD-10 - Z68.37) Oct, ERIS (generalized anxiety disorder) (ICD-10 - F41.1) Healthy diet and keep active. Spends time daily w/ sister and disabled nephew. [facility] Other Evaluation note 06-21-2023 Note Date & Type Note Facility 06-21-2023 Evaluation note Encounter Date Diagnosis Assessment Notes Jun, Primary hypertension (ICD-10 - I10) [facility] Other Evaluation note 05-28-2023 Note Date & Type Note Facility 05-28-2023 Evaluation note Encounter Date Diagnosis Assessment Notes May, Primary hypertension (ICD-10 - I10) [facility] Other Evaluation note 06-17-2022 Note Date & Type Note Facility 06-17-2022 Evaluation note Encounter Date Diagnosis Assessment Notes Jun, Contact with and (suspected) exposure to covid-19 (ICD-10 - Z20.822) [facility] Other Evaluation note Note Date & Type Note Facility Evaluation note No Information [employer] Other Evaluation note Note Date & Type Note Facility Evaluation note Diagnosis Onset Date Chronic venous insufficiency acute ERIS (generalized anxiety disorder) acute Obesity acute GERARD (obstructive sleep apnea) acute Paroxysmal atrial fibrillation acute Pure hypercholesterolemia ac miguel angel Raynaud's phenomenon without gangrene acute Stage 3b chronic kidney disease acute [place] Work Phone: History general Narrative - Reported Note Date & Type Note Facility History general Narrative - Reported Type Medical History CVA in 2012 Medical History hypertension Medical History blood clot in leg and lung in 20 12 Surgical History ankle fracture repair 1997 Surgical History cholecystectomy 1996 Surgical History D&C 2009 Hospitalization History see above surgical histo [employer] Other History general Narrative - Reported Note Date & Type Note Facility History general Narrative - Reported Type Medical History CVA in 2012 Medical History hypertension Medical History blood clot in leg and lung in 20 12 Medical History Glaucoma Medical History Hypertensive CKD (ch ronic kidney disease) Medical History Pure hypercholesterolemia Medical History Chronic venous insufficiency Medical History Paroxysmal atrial fibrillation Medical History Anemia Medical History Lumbar spondylosis Medical History H/O deep venous thrombosis Medical History Periodic limb movement disorder (PLMD) Medical History Lichen simplex chronicus Medical History Pulmonary nodule Medical History Essential hypertension Medical History Anxiety, generalized Surgical History ankle fracture repair 1997 Surgical History cholecystectomy 1996 Surgical History D&C 2009 Hospitalization History see above surgical [employer] Other Summary Purpose Family History Relationship Condition Age at Onset Recorded Date/T cristina father Malignant neoplasm Unknown Unknown grandparent Family history of mental disorder Unknown Not Specified Unknown Malignant neoplasm Unknown Heart disease Unknown Advance Directives Advance Directive Response Recorded Date/ Time Advance Directives No November 07, 2023 2:32pm Chief Complaint and Reason for Visit Chief Complaint 3 month follow up Reason for Visit Chronic venous insuf ficiency ERIS (generalized anxiety disorder) Obesity GERARD (obstructive sleep apnea) Paroxysmal atrial fibrillation Pure hypercholesterolemia Raynaud's phenomenon without gangrene Stage 3b chronic kidney disease Additional Source Comments REASON FOR VISIT (unrecogniz ed section and content) WHITE EQUINXO, CO VID EXPOSU REsmall red spotNot NeededNo InformationNo InformationRefillflu shotNo InformationERRORCheck Up INFORMATION SOURCE (unrecogn ized section and content) DATE CREATED AUTHOR 03/23/2023 [facility] DATE CREATED AUTHOR AUTHOR'S ORGANIZ ATION 12/29/2023 [facility] Care Teams (unrecognized sec tion and content) Team Status: Active Member Role Status Dates Shawn Hirsch DO Primary Care Provider Active Team Status: Inactive Member Role Status Dates Shawn Hirsch DO Primary Care Provide r, Attending Provider Active Start: January 23, 2024 End: January 23, 2024 Goals (unrecognized section and content) Goals may be documented in a n alternate section FOR RECORDS PERTAINING TO PATIENTS WHO ARE OR HAVE BEEN ENROLLED IN A CHEMICAL DEPENDENCY/SUBSTANCEABUSE PROGRAM, SOME INFORMATION MAY BE OMITTED. This clinical summary was aggregated from multiple sources. Caution should be exercised in using it in the provision of clinical care. This summary normalizes information from multiple sources, and as a consequence, information in this document may materially change the coding, format and clinical context of patient data. In addition, data may be omitted in some cases. CLINICAL DECISIONS SHOULD BE BASED ON THE PRIMARY CLINICAL RECORDS. [facility] [employer] provides no warranty or guarantee of the accuracy or completeness of information in this document.
[2024-01-25 10:55] LABS: Anion Gap 11.4; BUN Creatinine Ratio 24.8; Calcium 10.2 mg/dL (8.5-10.1); Carbon Dioxide 28.3 mmol/L (21.0-32.0); Chloride 106 mmol/L (98-107); Estimated GFR (African America 51 (>=60); Estimated GFR (Non-African Ame 42 (>=60); Glucose 83 mg/dL (74-106); Potassium 4.7 mmol/L (3.5-5.1); Sodium 141 mmol/L (136-145)
== END 2024-01-25 09:42 | disposition home or self-care (01) ==
LOC: LAB 09:43
PROVIDERS: PCP Internal Medicine; Visit Provider Internal Medicine
DX: N18.32 Chronic kidney disease, stage 3b (principal)
CPT/HCPCS: 36415; 80048

== ENCOUNTER 2024-02-13 04:31 | Outpatient (RCR) | payer MEDICARE, SELFPAY | END 2024-03-14 11:36 | disposition home or self-care (01) | LOC: MM 04:31 | PROVIDERS: PCP Internal Medicine; Visit Provider Internal Medicine | DX: Z51.81 Encounter for therapeutic drug level monitoring (principal); Z79.01 Long term (current) use of anticoagulants; I82.409 Acute embolism and thrombosis of unspecified deep veins of unspecified lower extremity | CPT/HCPCS: 85610; G0463 ==

== ENCOUNTER 2024-03-05 13:30 | Outpatient (OUT) | payer MEDICARE, MEDICAID, SELFPAY ==
--- OUTSIDE RECORDS SUMMARY | 2024-03-06 13:38 | XMS_ITS | CCD ---
Author Organization [facility] Care Team Providers Care Skirt Maker Name Role Phone Shama Nice Unavailable Shawn [...] Attending Unavailable FAWWAD, ADHIKARI H Admitting Unavailable DR SHAWN HIRSCH Primary Care [...] Iodine Drug Allergy rash and throat swelling [facility] Other (1 source) Iodine and Iodide Containing Products Drug allergy (disorder) [facility] Repository (4 sources) patient allergy list reviewed by nurse or physicia Propensity to adverse reactions Comment:Done [facility] Other (4 sources) Allergies Reconciled Propensity to adverse reactions Unknown [facility] Other Medications Current Medications Medication Drug Class(es) [...] sources) Angiotensin Converting Enzyme Inhibitor Star t: 0802-01 23 take 1 tablet by mouth every twenty-fou r hours Lisinopril 5 MG 1 tablet Orally Once a day for 100 days May, Active warfarin sodium 5 mg oral tablet (11 sources) Vitamin K Antagonist Star t: 0 04-03 24 Warfarin Active 5 MG PO [...] Encounter for therapeutic drug level monitoring; Translations: [facility] Onset: 02-10-2023 Episodic Other aftercare (1 source) doctor podiatric medicine (current) use of anticoagulants; Translations: [HALFWAY CURRNT USE ANTICOAGULANTS] Onset: 03-14-2023 Episodic Other aftercare (4 sources) Long-term current use of drug therapy; Translations: [Other longterm (current) drug therapy] Episodic Other circulatory disease [...] 01-03-2017 Episodic Other aftercare (1 source) Other longterm (current) drug therapy; Translations: [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 Perez Jaimes Basophils/100 WBC (Bld) 0.5 % Normal 0.2-2.0 [facility] Comment on above: Performed By: #### C BC #### [facility] [address] [place] [address] Dr. Perez Jaimes EO # 0.1 103/ul Normal 0.0-0.7 [facility] Comment on above: Performed By: #### C BC #### [facility] [address] [place] [address] Dr. Perez Jaimes Eosinophils/100 WBC (Bld) 1.1 % Normal 0.9-7.0 [facility] Comment on above: Performed By: #### C BC #### [facility] [address] [place] [address] Dr. Perez Jaimes Erythrocyte distribution width (RBC) [Ratio] 12.6 % Normal 11.0-15.0 [facility] Comment on above: Performed By: #### C BC #### [facility] [address] [place] [address] Dr. Perez Jaimes Hematocrit (Bld) [Volume fraction] 41.3 % Normal 36.0-48.0 [facility] Comment on above: Performed By: #### C BC #### [facility] [address] [place] [address] Dr. Perez Jaimes Hemoglobin (Bld) [Mass/Vol] 12.9 g/dL Normal 12.0-16.0 [facility] Comment on above: Performed By: #### C BC #### [facility] [address] [place] [address] Dr. Perez Jaimes IG # 0.02 10e3/ul Normal 0.00-0.03 [facility] Comment on above: Performed By: #### C BC #### [facility] [address] [place] [address] Dr. Perez Jaimes IG % 0.3 % Normal 0.0-0.5 [facility] Comment on above: Performed By: #### C BC #### [facility] [address] [place] [address] Dr. Perez Jaimes LYMPH # 1.3 103/ul Normal 1.2-3.8 [facility] Comment on above: Performed By: #### C BC #### [facility] [address] [place] [address] Dr. Perez Jaimes Lymphocytes/100 WBC (Bld) 20.2 % Critically low 20.5-60.0 [facility] Comment on above: Performed By: #### C BC #### [facility] [address] [place] [address] Dr. Perez Jaimes MANUAL DIFF REQ NO Normal [facility] Comment on above: Performed By: #### C BC #### [facility] [address] [place] [address] Dr. Perez Jaimes MCH (RBC) [Entitic mass] 29.5 pg Normal 26.7-34.0 [facility] Comment on above: Performed By: #### C BC #### [facility] [address] [place] [address] Dr. Perez Jaimes MCHC (RBC) [Mass/Vol] 31.2 g/dL Normal 29.9-35.2 [facility] Comment on above: Performed By: #### C BC #### [facility] [address] [place] [address] Dr. Perez Jaimes MCV (RBC) [Entitic vol] 94.5 fL Normal 81.0-99.0 [facility] Comment on above: Performed By: #### C BC #### [facility] [address] [place] [address] Dr. Perez Jaimes MONO # 0.5 103/ul Normal 0.3-0.8 [facility] Comment on above: Performed By: #### C BC #### [facility] [address] [address] [address] Perez Jaimes Monocytes/100 WBC (Bld) 8.7 % Normal 1.7-12.0 [facility] Comment on above: Performed By: #### C BC #### [facility] [address] [address] [address] Perez Jaimes NEUT # 4.3 103/ul Normal 1.4-6.5 [facility] Comment on above: Performed By: #### C BC #### [facility] [address] [place] [address] Dr. Perez Jaimes Neutrophils/100 WBC (Bld) 69.2 % Normal 43.0-75.0 [facility] Comment on above: Performed By: #### C BC #### [facility] [address] [place] [address] Dr. Perez Jaimes Platelet mean volume (Bld) [Entitic vol] 9.6 fL Normal 9.5-13.5 [facility] Comment on above: Performed By: #### C BC #### [facility] [address] [place] [address] Dr. Perez Jaimes PLT 178 103/ul Normal 150-450 [facility] Comment on above: Performed By: #### C BC #### [facility] [address] [place] [address] Dr. Perez Jaimes RBC 4.37 106/ul Normal 4.20-5.40 [facility] Comment on above: Performed By: #### C BC #### [facility] [address] [place] [address] Dr. Perez Jaimes WBC 6.2 103/ul Normal 4.0-11.0 [facility] Comment on above: Performed By: #### C BC #### [facility] [address] [place] [address] Dr. Perez Jaimes LIPID PROFILEon 06-15-2022 CHOL-HDL RATIO NORM SEE BELOW Normal [facility] Comment on above: Result Comment: 3.3 - 4.4 LOW RISK 4.4 - 7.1 AVERAGE RISK 7.1 - 11.0 MODERATE RISK >11.0 HIGH RISK Performed By: #### B MP, LIPID #### [facility] [address] [address] [address] Perez Jaimes Cholesterol [Mass/Vol] 214 mg/dL Critically high <=200 [facility] Comment on above: Performed By: #### B MP, LIPID #### [facility] [address] [address] [address] Perez Jaimes Cholesterol in HDL [Mass/Vol] 70 mg/dL Critically high 40-60 [facility] Comment on above: Performed By: #### B MP, LIPID #### [facility] [address] [place] [address] Dr. Perez Jaimes Cholesterol in LDL [Mass/Vol] 109.4 mg/dL Normal [facility] Comment on above: Performed By: #### B MP, LIPID #### [facility] [address] [place] [address] Dr. Perez Jaimes Cholesterol.total/ Cholesterol in HDL [Mass ratio] 3.1 {ratio} Normal [facility] Comment on above: Performed By: #### B MP, LIPID #### [facility] [address] [place] [address] Dr. Perez Jaimes HDL NORMAL > or = 60 mg/dl - LOW CARDIOVASCULAR RISK <40 mg/dl - HIGH CARDIOVASCULAR RISK Normal [facility] Comment on above: Performed By: #### B MP, LIPID #### [facility] [address] [place] [address] Dr. Perez Jaimes LDL CALC NORMAL SEE BELOW Normal [facility] Comment on above: Result Comment: <100 mg/dl OPTIMAL 100 - 129 mg/dl NEAR OR ABOVE OPTIMAL 130 - 159 mg/dl BORDERLINE HIGH 160 - 189 mg/dl HIGH >190 mg/dl VERY HIGH Performed By: #### B MP, LIPID #### [facility] [address] [place] [address] Dr. Perez Jaimes Triglyceride [Mass/Vol] 173 mg/dL Critically high <=150 [facility] Comment on above: Performed By: #### B MP, LIPID #### [facility] [address] [address] [address] Perez Jaimes VLDL CALC 34.6 mg/dL Normal [facility] Comment on above: Performed By: #### B MP, LIPID #### [facility] [address] [address] [address] Perez Jaimes PROF CHEM 8 (BAS METB)on Anion gap [Moles/Vol] 12.6 mmol/L Normal [facility] Comment on above: Performed By: #### B MP, LIPID #### [facility] [address] [address] [address] Perez Jaimes Calcium [Mass/Vol] 9.7 mg/dL Normal 8.5-10.1 [facility] Comment on above: Performed By: #### B MP, LIPID #### [facility] [address] [address] [address] Perez Jaimes Chloride [Moles/Vol] 103 mmol/L Normal 98-107 [facility] Comment on above: Performed By: #### B MP, LIPID #### [facility] [address] [address] [address] Perez Jaimes CO2 [Moles/Vol] 27.0 mmol/L Normal 21.0-32.0 [facility] Comment on above: Performed By: #### B MP, LIPID #### [facility] [address] [address] [address] Perez Jaimes Creatinine [Mass/Vol] 1.32 mg/dL Critically high 0.55-1.02 [facility] Comment on above: Performed By: #### B MP, LIPID #### [facility] [address] [address] [address] Perez Jaimes EGFR-AF [place] 48 mL/min/1.73m2 Critically low >=60 [facility] Comment on above: Performed By: #### B MP, LIPID #### [facility] [address] [address] [address] Perez Jaimes EGFR-NON AF [place] 40 mL/min/1.73m2 Critically low >=60 [facility] Comment on above: Performed By: #### B MP, LIPID #### [facility] [address] [address] [address] Perez Jaimes Glucose [Mass/Vol] 99 mg/dL Normal 74-106 [facility] Comment on above: Performed By: #### B MP, LIPID #### [facility] [address] [address] [address] Perez Jaimes Potassium [Moles/Vol] 4.6 mmol/L Normal 3.5-5.1 [facility] Comment on above: Performed By: #### B MP, LIPID #### [facility] [address] [address] [address] Perez Jaimes Sodium [Moles/Vol] 138 mmol/L Normal 136-145 [facility] Comment on above: Performed By: #### B MP, LIPID #### [facility] [address] [address] [address] Perez Jaimes Urea nitrogen [Mass/Vol] 31.0 mg/dL Critically high 7.0-18.0 [facility] Comment on above: Performed By: #### B MP, LIPID #### [facility] [address] [address] [address] Perez Jaimes Urea nitrogen/Creatinin e [Mass ratio] 23.5 mg/mg Normal [facility] Comment on above: Performed By: #### B MP, LIPID #### [facility] [address] [address] [address] Perez Jaimes MG MAMM SCREEN 3D WAI CADon 06-14-2022 MG MAMM SCREEN 3D WAI CAD Patient: VINCE SHITAL J. Exam Date: 06/14/2022 : 1950 Gender:F Ordering : DR SHAWN HIRSCH D.O. Admission #: [id number] Family : Order #: [id number] CLICK HERE TO VIEW EXAM RADIOLOGY REPORT [...] with uterine cancer at age 65. LOCATION: [facility] BREAST COMPOSITION: Scattered areas fibroglandular density. [...] Marin MD on 06/14/2022 at 12:41 Normal [facility] Vital Signs Date Time Vital Sign Value Performing Clinician Facility 01-23-2024 10:14-0400 Body height 154.94 cm [facility] 01-23-2024 10:14-0400 Body mass index (BMI) [Ratio] 35.3 kg/m2 [facility] 01-23-2024 10:14-0400 Body weight 84.87 kg [facility] 01-23-2024 10:14-0400 Diastolic blood pressure 78 mm[Hg] [facility] 01-23-2024 10:14-0400 Heart rate 62 /min [facility] 01-23-2024 10:14-0400 Respiratory rate 12 /min [facility] 01-23-2024 10:14-0400 Systolic blood pressure 150 mm[Hg] [facility] 10-24-2023 10:00-0500 Body height 154.94 cm [employer] Other [facility] Other 10-24-2023 10:00-0500 Body mass index (BMI) [Ratio] 36.2 kg/m2 [employer] Other [facility] Other 10-24-2023 10:00-0500 Body weight 86.91 kg Shawn Hirsch Other [facility] Other 10-24-2023 10:00-0500 Diastolic blood pressure 80 mm[Hg] Shawn Hirsch Other [facility] Other 10-24-2023 10:00-0500 Respiratory rate 12 /min Shawn Hirsch Other [facility] Other 10-24-2023 10:00-0500 Systolic blood pressure 139 mm[Hg] Shawn Hirsch Other [facility] Other Encounters Encounter Date Encounter Type Care Provider Facility Start: 01-23-2024 End: 01-23-2024 ambulatory [facility] Work Phone: Start: 01-23-2024 End: 01-23-2024 Patient encounter procedure [facility] Work Phone: Start: 12-27-2023 End: 12-27-2023 ambulatory ISABEL NGUYEN Not Available Start: 10-24-2023 End: 10-24-2023 ambulatory Shawn Hirsch Other [facility] Other Start: 10-24-2023 Office outpatient vi sit 25 minutes Shawn Hirsch [facility] Start: 10-09-2023 End: 10-09-2023 ambulatory Shawn Hirsch Other [facility] Other Start: 10-09-2023 Telephone encounter Shawn Vince [facility] Start: 06-21-2023 End: 06-21-2023 ambulatory Shawn Vince Other [facility] Other Start: 06-21-2023 Telephone encounter Shawn Ball [facility] Start: 06-19-2023 End: 06-19-2023 ambulatory Shawn Vince Other [facility] Other Start: 06-19-2023 Nursing evaluation o f patient and report Shawn MUÑOZ [facility] Start: 05-28-2023 End: 05-28-2023 ambulatory Shawn Hirsch Other [facility] Other Start: 05-28-2023 Telephone encounter Shawn Vince [facility] Start: 02-12-2023 End: 03-14-2023 ambulatory ADHIKARI H FAWWAD Facility:[facility] Start: 01-15-2023 End: 02-09-2023 ambulatory ADHIKARI H FAWWAD Facility:[facility] Start: 01-08-2023 End: 01-08-2023 ambulatory Shanw Hirsch Other [facility] Other Start: 01-08-2023 Telephone encounter Shawn Vince [facility] Start: 12-13-2022 End: 01-12-2023 ambulatory ADHIKARI H FAWWAD Facility:[facility] Start: 11-15-2022 End: 12-13-2022 ambulatory ADHIKARI H FAWWAD Facility:[facility] Start: 10-16-2022 End: 11-14-2022 ambulatory ADHIKARI H FAWWAD Facility:[facility] Start: 09-14-2022 End: 10-15-2022 ambulatory ADHIKARI H FAWWAD Facility:[facility] Start: 08-15-2022 End: 09-13-2022 ambulatory ADHIKARI H FAWWAD Facility:[facility] Start: 07-26-2022 End: 08-14-[address] SHAWN HIRSCH Facility:[facility] Start: 06-17-2022 End: 06-17-2022 ambulatory Shama Nice Other [facility] Other Start: 06-17-2022 Nursing evaluation o f patient and report Shama Nice [facility] Start: 06-15-2022 End: 06-16-[address] SHAWN HIRSCH Facility:[facility] Start: 06-15-2022 End: 07-15-2022 ambulatory ADHIKARI H FAWWAD Facility:[facility] Start: 06-14-2022 End: 06-15-[address] SHAWN HIRSCH Facility:[facility] Start: 05-23-2022 Adult health examination Vasquez Hirsch Other [facility] Other Start: 05-15-2022 End: 06-14-2022 ambulatory SHAIKH Graciela SMITH Facility:[facility] Start: 04-19-2022 End: 05-12-2022 ambulatory SHAIKH Graciela SMITH Facility:[facility] Start: 04-14-2022 End: 04-15-2022 ambulatory SHAIKH Graciela SMITH Facility:[facility] Start: 03-30-2020 Gynecological examin ation normal Shawn Hirsch Other [facility] Other Procedures Date Procedure Procedure Detail Performing [...] of Treatment Date Care Activity Detail Author [facility] Immunizations Immunization Date Immunization Notes Care Provider Fa cility 06-19-2023 influenza, high dose seasonal, preservative-free Shawn Hirsch Other [facility] Other 06-19-2023 influenza virus vaccine, unspecified formulation [facility] 07-26-2022 influenza virus vaccine, split virus (incl. purified surface antigen) Shawn Hirsch Other [facility] Other 07-25-2022 influenza virus vaccine, unspecified formulation [facility] 07-25-2022 influenza, high dose seasonal, preservative-free Shawn Hirsch Other [facility] Other 08-08-2021 influenza virus vaccine, split virus (incl. purified surface antigen) Shawn Hirsch Other [facility] Other 08-08-2021 influenza virus vaccine, unspecified formulation [facility] 01-12-2021 COVID-19 Vaccine Pfi zer - Documentation Purposes Only Shawn Hirsch Other [facility] 07-06-2020 influenza virus vaccine, split virus (incl. purified surface antigen) Shawn Hirsch Other [facility] [employer] Other 07-06-2020 influenza virus vaccine, unspecified formulation [facility] 07-29-2019 influenza virus vaccine, split virus (incl. purified surface antigen) Shawn Hirsch Other [facility] [employer] Other 07-29-2019 influenza virus vaccine, unspecified formulation [facility] 07-09-2018 influenza virus vaccine, split virus (incl. purified surface antigen) Shawn Hirsch Other [facility] [employer] Other 07-09-2018 influenza virus vaccine, unspecified formulation [facility] 04-03-2018 influenza virus vaccine, split virus (incl. purified surface antigen) Shawn Hirsch Other [facility] [employer] Other 04-03-2018 influenza virus vaccine, unspecified formulation [facility] 01-11-2018 pneumococcal Conjuga te, unspecified formulation; Translations: [Need for prophylactic vaccination against Streptococcus pneumoniae (pneumococcus)] Shawn Vince Other [facility] Other 01-11-2018 pneumococcal polysaccharide vaccine, 23 valent Shawn Vince Other [facility] 08-03-2017 influenza virus vaccine, split virus (incl. purified surface antigen) Shawn Hirsch Other [facility] Other 08-03-2017 influenza virus vaccine, unspecified formulation [facility] 01-03-2017 pneumococcal conjuga te vaccine, 13 valent Shawn Hirsch Other [facility] 09-27-2016 influenza virus vaccine, split virus (incl. purified surface antigen) Shawn Hirsch Other [facility] [employer] Other 09-27-2016 influenza virus vaccine, unspecified formulation [facility] 07-23-2015 tetanus and diphther ia toxoids, adsorbed, preservative free, for adult use (5 Lf of tetanus toxoid and 2 Lf of diphtheria toxoid) Shawn Hirsch Other [facility] 07-30-2013 tetanus and diphther ia toxoids, adsorbed, preservative free, for adult use (5 Lf of tetanus toxoid and 2 Lf of diphtheria toxoid) Shawn Hirsch Other [facility] Payers Date Payer Category Payer Unknown [id number] 1958 Medicaid [id number] 2. [id number] 1958 Medicare [id number] 1950 Unknown [id number] 2.16.84 [id number] 1950 Unknown [id number] 2.16.84 0.1.290913.3.579.2.593 1950 Unknown [id number] 2.16.84 0.1.896675.3.579.2.593 1950 Unknown [id number] 2.16.84 0.1.436323.3.579.2.593 1950 Unknown [id number] 2.16.84 0.1.694076.3.579.2.593 1950 Unknown [id number] 2.16.84 0.1.396039.3.579.2.593 1950 Unknown [id number] 2.16.84 0.1.052661.3.579.2.593 1950 Unknown [id number] 2.16.84 0.1.524335.3.579.2.593 1950 Unknown [id number] 2.16.84 0.1.912274.3.579.2.593 1950 Unknown [id number] 2.16.84 0.1.881965.3.579.2.593 1950 Unknown [id number] 2.16.84 0.1.686640.3.579.2.593 1950 Unknown [id number] 2.16.84 0.1.372987.3.579.2.593 1950 Unknown [id number] 2.16.84 0.1.259013.3.579.2.593 1950 Unknown [id number] 2.16.84 0.1.611141.3.579.2.593 1950 Unknown [id number] 2.16.84 0.1.272413.3.579.2.1259 Medicare [id number] 2.1 [id number] Social History Date Type Detail Facility Sex Assigned At [facility] Other Start: 01-23-2024 Tobacco smoking stat [facility] Never smoked tobacco (finding) [facility] Start: 1950 Sex Assigned At Female F [facility] Evaluation note 10-24-2023 Note Date & [...] are maintaining regular scheduled appts with their night baker. No bleeding complications Oct, Raynaud's phenomenon without [...] use, the patient reduces the risk for WI, CVA, HTN, cardiac dysrhythmias and sudden cardiac [...] time daily w/ sister and disabled nephew. [employer] Other Evaluation note 06-21-2023 Note Date & Type Note Facility 06-21-2023 Evaluation note Encounter Date Diagnosis Assessment Notes Jun, Primary hypertension (ICD-10 - I10) [facility] Other Evaluation note 05-28-2023 Note Date & Type Note Facility 05-28-2023 Evaluation note Encounter Date Diagnosis Assessment Notes May, Primary hypertension (ICD-10 - I10) [facility] Other Evaluation note 06-17-2022 Note Date & Type Note Facility 06-17-2022 Evaluation note Encounter Date Diagnosis Assessment Notes Jun, Contact with and (suspected) exposure to covid-19 (ICD-10 - Z20.822) [facility] Other Evaluation note Note Date & Type Note Facility Evaluation note No Information [facility] Other Evaluation note Note Date & Type Note Facility Evaluation note Diagnosis Onset Date Chronic venous insufficiency acute ERIS (generalized anxiety disorder) acute Obesity acute GERARD (obstructive sleep apnea) acute Paroxysmal atrial fibrillation acute Pure hypercholesterolemia ac miguel angel Raynaud's phenomenon without gangrene acute Stage 3b chronic kidney disease acute [facility] Work Phone: History general Narrative - Reported Note Date & Type Note Facility History general Narrative - Reported Type Medical History CVA in 2012 Medical History hypertension Medical History blood clot in leg and lung in 20 12 Surgical History ankle fracture repair 1997 Surgical History cholecystectomy 1996 Surgical History D&C 2009 Hospitalization History see above surgical histo [employer] Other History general Narrative - Reported Note [...] D&C 2009 Hospitalization History see above surgical [employer] Other Summary Purpose Family History Relationship Condition [...] DATE CREATED AUTHOR AUTHOR'S ORGANIZ ATION 12/29/2023 [facility] Care Teams (unrecognized sec tion and [...] BE BASED ON THE PRIMARY CLINICAL RECORDS. [facility] [employer] provides no warranty or guarantee of the accuracy or completeness of information in this document.
== END 2024-03-05 13:31 | disposition home or self-care (01) ==
LOC: SLEEP 03-06 13:30
PROVIDERS: PCP Internal Medicine; Visit Provider Internal Medicine
DX: G47.33 Obstructive sleep apnea (adult) (pediatric) (principal); G25.81 Restless legs syndrome
CPT/HCPCS: 95806

== ENCOUNTER 2024-03-17 00:09 | Outpatient (RCR) | payer MEDICARE, SELFPAY | END 2024-04-11 10:09 | disposition home or self-care (01) | LOC: MM 00:09 | PROVIDERS: PCP Internal Medicine; Visit Provider Internal Medicine | DX: Z51.81 Encounter for therapeutic drug level monitoring (principal); Z79.01 Long term (current) use of anticoagulants; I82.409 Acute embolism and thrombosis of unspecified deep veins of unspecified lower extremity | CPT/HCPCS: 85610; G0463 ==

== ENCOUNTER 2024-04-03 14:03 | Outpatient (OUT) | payer MEDICARE, SELFPAY ==
--- OUTSIDE RECORDS SUMMARY | 2024-04-03 14:23 | XMS_ITS | CCD ---
Author Organization [facility] Care Team Providers Care Parts Sales Associate Name Role Phone Shama Nice Unavailable Shawn [...] Care Unavailable FAWWAD, ADHIKARI H Attending Unavailable SHAIKH Graciela SMITH Admitting Unavailable DR SHAWN HRISCH Primary Care Unavailable SHAIKH Graciela SMITH Attending Unavailable SHAIKH Graciela SMITH Admitting Unavailable DR SHAWN HIRSCH Primary Care Unavailable ISABEL NGUYEN Attending Unavailable ISABEL NGUYEN Attending Unavailable Allergies Allergy Classification Reported Allergen(s) Allergy Type Date of Onset Reaction(s) Facility (10 sources) Iodine Drug Allergy rash and throat swelling [facility] Other (1 source) Iodine and Iodide Containing Products Drug allergy (disorder) [facility] Repository (4 sources) patient allergy list reviewed by nurse or physicia Propensity to adverse reactions Comment:Done [facility] Other (4 sources) Allergies Reconciled Propensity to adverse reactions Unknown [facility] Other Medications Current Medications Medication Drug Class(es) Dates Sig (Normalized) Sig (Original) clonazePAM (2 sources) Benzodiazepine clonazePAM Activ e fluticasone propionate 0.05 mg/actuat metered dose nasal spray (14 sources) Corticosteroid Start: 01-19-2024 Fluticasone Propionate Active [...] a day for 100 days May, Active losartan potassium 25 mg oral tablet (1 source) Angiotensin 2 Receptor Em Star t: 03-15 24 take 25 mg by mouth once daily Losartan Active 25 MG PO Daily 30 March 27, 2024 12:00am torsemide 20 mg oral tablet (1 source) Loop Diuretic Star t: 03-15 24 take 20 mg by mouth once daily Torsemide Active 20 MG PO Daily 14 March 27, 2024 12:00am warfarin sodium 5 mg oral tablet (12 sources) Vitamin K Antagonist Star t: 04-03 24 Warfarin Active 5 MG PO As Directed January 19, 2024 12:00am Warfarin Sodium 5 MG 1 tablet Orally as directed Active Warfarin Sodium Active Completed/Discontinued Medications Medication Drug Class(es) Dates Sig (Normalized) Sig (Original) amLODIPine 5 mg oral tablet (3 sources) Dihydropyridine Calcium Channel Em Start: 01-19-2024 End: 03-27-2024 take 5 mg by mouth once daily Amlodipine Discontinued 5 MG PO Daily January 19, 2024 12:00am March 27, 2024 4:46pm Start: 10-24-2023 take 1 tablet by johnny th every twenty-four hours amLODIPine Besylate 5 MG 1 tablet Orally Once a day for 30 days Oct, Active Calcium (10 sources) Phosphate Binder, Calcium Calciu m Not-Taking/PRN Calcium Not-Taki ng Calcium Active Problems Active Problems Problem Classification Problem Date Documented Da te Episodic/Chronic Anxiety disorders (17 sources) Generalized anxiety disorder; Translations: [Generalized anxiety disorder] Chronic Cardiac dysrhythmias (14 sources) Paroxysmal atrial fibrillation; Translations: [Paroxysmal atrial fibrillation] Chronic Chronic kidney disease (13 sources) Chronic kidney disease stage 3B ; Translations: [Stage 3b chronic kidney disease] 01-19-2024 Chronic Chronic ulcer of skin (4 sources) Ulcer of lower extremity; Translations: [Ulcer of lower limb, unspecified] Onset: 02-14-2016 Chronic Deficiency and other anemia (14 sources) Anemia; Translations: [Anemia, unspecified] 01-19-2024 Episodic Disorders of lipid metabolism (17 sources) Pure hypercholesterolemia ; Translations: [Pure hypercholesterolemia , unspecified] Chronic Essential hypertension (20 sources) Essential hypertension; Translations: [Unspecified essential hypertension] Chronic Glaucoma (14 sources) Glaucoma; Translations: [Unspecified glaucoma] 01-19-2024 Chronic [...] for therapeutic drug level monitoring; Translations: [ENC THERAPEUTC DRUG LEVL MONITORING] Onset: 02-10-2023 Episodic Other aftercare (1 source) penitentiary (current) use of anticoagulants; Translations: [CARE HOME CURRNT USE ANTICOAGULANTS] Onset: 03-14-2023 Episodic Other aftercare (4 sources) Long-term current use of drug therapy; Translations: [Other fdc (current) drug therapy] Episodic Other circulatory disease (3 sources) Raynaud's phenomenon; Translations: [Raynaud's syndrome without gangrene] 01-19-2024 Chronic Other circulatory disease (4 sources) Raynaud's syndrome without gangrene; Translations: [Raynaud's syndrome] Chronic Other circulatory disease (4 sources) Orthostatic hypotension; Translations: [Orthostatic hypotension] Episodic Other diseases of veins and lymphatics (4 sources) Chronic venous hypertension (idiopathic) with ulcer of unspecified lower extremity; Translations: [Chronic venous hypertension (idiopathic) with ulcer of unspecified lower extremity] Onset: 02-14-2016 Chronic Other diseases of veins and lymphatics (18 sources) Peripheral venous insufficiency; Translations: [Venous insufficiency (chronic) (peripheral)] Onset: 01-28-2016 01-19-2024 Episodic Other diseases of veins and lymphatics (4 sources) Venous insufficiency (chronic) (peripheral); Translations: [Venous (peripheral) insufficiency, unspecified] Episodic Other female genital disorders (4 sources) Abnormal uterine bleeding; Translations: [Abnormal uterine and vaginal bleeding, unspecified] Onset: 12-03-2013 Chronic Other gastrointestinal disorders (4 sources) Irritable bowel syndrome; Translations: [Irritable bowel syndrome] Chronic Other inflammatory condition of skin (10 sources) Lichen simplex chronicus; Translations: [Lichen simplex chronicus] 01-19-2024 Episodic Other injuries and conditions due to external causes (4 sources) History of fall; Translations: [History of falling] Episodic Other lower respiratory disease (10 sources) Nodule of lung; Translations: [Solitary pulmonary nodule] 01-19-2024 Episodic Other lower respiratory disease (4 sources) Solitary nodule of lung; Translations: [Solitary pulmonary nodule] Episodic Other nutritional; endocrine; and metabolic disorders (6 sources) Obesity; Translations: [Obesity, unspecified] 01-23-2024 Chronic Other nutritional; endocrine; and metabolic disorders (5 sources) Hypercalcemia; Translations: [Hypercalcemia] Resolved: 11-29-2021 01-25-2024 Chronic Other nutritional; endocrine; and metabolic disorders [...] Chronic Other nutritional; endocrine; and metabolic disorders (2 sources) Obesity, unspecified; Translations: [Obesity, unspecified] 01-23-2024 Chronic [...] limb] Onset: 12-06-2014 Episodic Residual codes; unclassified (18 sources) Obstructive sleep apnea syndrome; Translations: [Obstructive sleep apnea (adult) (pediatric)] Onset: 11-07-2017 01-19-2024 Chronic Residual codes; unclassified (14 sources) Periodic limb movement disorder; Translations: [Periodic limb movement disorder] 01-19-2024 Chronic Residual codes; unclassified (4 sources) Obstructive sleep apnea (adult) (pediatric); Translations: [Obstructive sleep apnea (adult)(pediatric)] Chronic Residual codes; unclassified (4 sources) Postmenopausal state; Translations: [Asymptomatic menopausal state] Episodic Spondylosis; intervertebral disc disorders; other back problems (14 sources) Lumbosacral spondylosis without myelopathy; Translations: [Spondylosis [...] 01-03-2017 Episodic Other aftercare (1 source) Other continuous churn buttermaker (current) drug therapy; Translations: [OTH HOTEL ENGINEER CURRENT DRUG THERAPY] Onset: 06-16-2022 Episodic Other connective tissue disease (4 sources) Fibromyalgia; Translations: [Fibromyalgia] Onset: 06-26-2018 Episodic Other lower respiratory disease (8 sources) Dyspnea; Translations: [Dyspnea, unspecified] Onset: 11-27-2014 Episodic Other screening for suspected conditions (not mental [...] Test Name Value Interpretation Reference Range Facility Estimated glomerular filtrat ion rate (GFR) non- Americanon 01-25-2024 GFR/1.73 sq M.predicted among non-blacks MDRD (S/P/Bld) [Vol rate/Area] 42 mL/min/{1.73_m2} >=60 [facility] - Chemistry and C hemistry - challengeon 01-25-2024 Calcium [Mass/Vol] 10.2 mg/dL 8.5-10.1 [facility] Chloride [Moles/Vol] 106 mmol/L 98-107 [facility] CO2 [Moles/Vol] 28.3 mmol/L 21.0-32.0 [facility] Creatinine [Mass/Vol] 1.25 mg/dL 0.55-1.02 [facility] GFR/1.73 sq M.predicted MDRD (S/P/Bld) [Vol rate/Area] 51 mL/min/{1.73_m2} >=60 [facility] Glucose [Mass/Vol] 83 mg/dL 74-106 [facility] Potassium [Moles/Vol] 4.7 mmol/L 3.5-5.1 [facility] Sodium [Moles/Vol] 141 mmol/L 136-145 [facility] Urea nitrogen [Mass/Vol] 31.0 mg/dL 7.0-18.0 [facility] Urea nitrogen/Creatinine [Mass ratio] 24.8 mg/mg [facility] Serum or plasma anion gap de terminationon 01-25-2024 Anion gap [Moles/Vol] 11.4 mmol/L [facility] SARS-CoV-2 (COVID-19) RNA NA A+probe Ql (Resp)on 06-17-2022 SARS-CoV-2 (COVID-19) RNA MARLON+probe Ql (Unsp spec) Negative [facility] Other CBC AUTO DIFFon 06-15-2022 BASO # 0.0 103/ul Normal 0.0-0.1 [facility] Comment on above: Performed By: #### C BC #### [facility] [address] [address] [address] Perez Jaimes Basophils/100 WBC (Bld) 0.5 % Normal 0.2-2.0 [facility] Comment on above: Performed By: #### C BC #### [facility] [address] [address] [address] Preez Jaimes EO # 0.1 103/ul Normal 0.0-0.7 [facility] Comment on above: Performed By: #### C BC #### [facility] [address] [address] [address] Perez Jaimes Eosinophils/100 WBC (Bld) 1.1 % Normal 0.9-7.0 [facility] Comment on above: Performed By: #### C BC #### [facility] [address] [address] [address] Perez Jaimes Erythrocyte distribution width (RBC) [Ratio] 12.6 % Normal 11.0-15.0 [facility] Comment on above: Performed By: #### C BC #### [facility] [address] [address] [address] Perez Jaimes Hematocrit (Bld) [Volume fraction] 41.3 % Normal 36.0-48.0 [facility] Comment on above: Performed By: #### C BC #### [facility] [address] [address] [address] Perez Jaimes Hemoglobin (Bld) [Mass/Vol] 12.9 g/dL Normal 12.0-16.0 [facility] Comment on above: Performed By: #### C BC #### [facility] [address] [address] [address] Perez Jaimes IG # 0.02 10e3/ul Normal 0.00-0.03 [facility] Comment on above: Performed By: #### C BC #### [facility] [address] [place] [address] Dr. Perez Jaimes IG % 0.3 % Normal 0.0-0.5 [facility] Comment on above: Performed By: #### C BC #### [facility] [address] [place] [address] Dr. Perez Jaimes LYMPH # 1.3 103/ul Normal 1.2-3.8 [facility] Comment on above: Performed By: #### C BC #### [facility] [address] [place] [address] Dr. Perez Jaimes Lymphocytes/100 WBC (Bld) 20.2 % Critically low 20.5-60.0 [facility] Comment on above: Performed By: #### C BC #### [facility] [address] [place] [address] Dr. Perez Jaimes MANUAL DIFF REQ NO Normal [facility] Comment on above: Performed By: #### C BC #### [facility] [address] [place] [address] Dr. Perez Jaimes MCH (RBC) [Entitic mass] 29.5 pg Normal 26.7-34.0 [facility] Comment on above: Performed By: #### C BC #### [facility] [address] [place] [address] Dr. Perez Jaimes MCHC (RBC) [Mass/Vol] 31.2 g/dL Normal 29.9-35.2 [facility] Comment on above: Performed By: #### C BC #### [facility] [address] [place] [address] Dr. Perez Jaimes MCV (RBC) [Entitic vol] 94.5 fL Normal 81.0-99.0 [facility] Comment on above: Performed By: #### C BC #### [facility] [address] [place] [address] Dr. Perez Jaimes MONO # 0.5 103/ul Normal 0.3-0.8 [facility] Comment on above: Performed By: #### C BC #### [facility] [address] [address] [address] Perez Jaimes Monocytes/100 WBC (Bld) 8.7 % Normal 1.7-12.0 [facility] Comment on above: Performed By: #### C BC #### [facility] [address] [address] [address] Perez Jaimes NEUT # 4.3 103/ul Normal 1.4-6.5 [facility] Comment on above: Performed By: #### C BC #### [facility] [address] [address] [address] Perez Jaimes Neutrophils/100 WBC (Bld) 69.2 % Normal 43.0-75.0 [facility] Comment on above: Performed By: #### C BC #### [facility] [address] [place] [address] Dr. Perez Jaimes Platelet mean volume (Bld) [Entitic vol] 9.6 fL Normal 9.5-13.5 [facility] Comment on above: Performed By: #### C BC #### [facility] [address] [place] [address] Dr. Perez Jaimes PLT 178 103/ul Normal 150-450 [facility] Comment on above: Performed By: #### C BC #### [facility] [address] [place] [address] Dr. Perez Jaimes RBC 4.37 106/ul Normal 4.20-5.40 [facility] Comment on above: Performed By: #### C BC #### [facility] [address] [place] [address] Dr. Perez Jaimes WBC 6.2 103/ul Normal 4.0-11.0 [facility] Comment on above: Performed By: #### C BC #### [facility] [address] [place] [address] Dr. Perez Jaimes LIPID PROFILEon 06-15-2022 CHOL-HDL RATIO NORM SEE BELOW Normal [facility] Comment on above: Result Comment: 3.3 - 4.4 LOW RISK 4.4 - 7.1 AVERAGE RISK 7.1 - 11.0 MODERATE RISK >11.0 HIGH RISK Performed By: #### B MP, LIPID #### [facility] [address] [address] [address] Perez Jaimes Cholesterol [Mass/Vol] 214 mg/dL Critically high <=200 [facility] Comment on above: Performed By: #### B MP, LIPID #### [facility] [address] [address] [address] Perez Jaimes Cholesterol in HDL [Mass/Vol] 70 mg/dL Critically high 40-60 [facility] Comment on above: Performed By: #### B MP, LIPID #### [facility] [address] [address] [address] Perez Jaimes Cholesterol in LDL [Mass/Vol] 109.4 mg/dL Normal [facility] Comment on above: Performed By: #### B MP, LIPID #### [facility] [address] [place] [address] Dr. Perez Jaimes Cholesterol.total/Ch olesterol in HDL [Mass ratio] 3.1 {ratio} Normal [facility] Comment on above: Performed By: #### B MP, LIPID #### [facility] [address] [place] [address] Dr. Perez Jaimes HDL NORMAL > or = 60 mg/dl - LOW CARDIOVASCULAR RISK <40 mg/dl - HIGH CARDIOVASCULAR RISK Normal [facility] Comment on above: Performed By: #### B MP, LIPID #### [facility] [address] [place] [address] Dr. Perez Jaimes LDL CALC NORMAL SEE BELOW Normal [facility] Comment on above: Result Comment: <100 mg/dl OPTIMAL 100 - 129 mg/dl NEAR OR ABOVE OPTIMAL 130 - 159 mg/dl BORDERLINE HIGH 160 - 189 mg/dl HIGH >190 mg/dl VERY HIGH Performed By: #### B MP, LIPID #### [facility] [address] [address] [address] Perez Jaimes Triglyceride [Mass/Vol] 173 mg/dL Critically high <=150 [facility] Comment on above: Performed By: #### B MP, LIPID #### [facility] [address] [address] [address] Perez Jaimes VLDL CALC 34.6 mg/dL Normal [facility] Comment on above: Performed By: #### B MP, LIPID #### [facility] [address] [address] [address] Perez Jaimes PROF CHEM 8 (BAS METB)on Anion gap [Moles/Vol] 12.6 mmol/L Normal [facility] Comment on above: Performed By: #### B MP, LIPID #### [facility] [address] [address] [address] Perez Jaimes Calcium [Mass/Vol] 9.7 mg/dL Normal 8.5-10.1 [facility] Comment on above: Performed By: #### B MP, LIPID #### [facility] [address] [place] [address] Dr. Perez Jaimes Chloride [Moles/Vol] 103 mmol/L Normal 98-107 [facility] Comment on above: Performed By: #### B MP, LIPID #### [facility] [address] [place] [address] Dr. Perez Jaimes CO2 [Moles/Vol] 27.0 mmol/L Normal 21.0-32.0 [facility] Comment on above: Performed By: #### B MP, LIPID #### [facility] [address] [place] [address] Dr. Perez Jaimes Creatinine [Mass/Vol] 1.32 mg/dL Critically high 0.55-1.02 [facility] Comment on above: Performed By: #### B MP, LIPID #### [facility] [address] [place] [address] Dr. Perez Jaimes EGFR-AF BENINESE 48 mL/min/1.73m2 Critically low >=60 [facility] Comment on above: Performed By: #### B MP, LIPID #### [facility] [address] [place] [address] Dr. Perez Jaimes EGFR-NON AF BENINESE 40 mL/min/1.73m2 Critically low >=60 [facility] Comment on above: Performed By: #### B MP, LIPID #### [facility] [address] [address] [address] Perez Jaimes Glucose [Mass/Vol] 99 mg/dL Normal 74-106 [facility] Comment on above: Performed By: #### B MP, LIPID #### [facility] [address] [address] [address] Perez Jaimes Potassium [Moles/Vol] 4.6 mmol/L Normal 3.5-5.1 [facility] Comment on above: Performed By: #### B MP, LIPID #### [facility] [address] [address] [address] Perez Jaimes Sodium [Moles/Vol] 138 mmol/L Normal 136-145 [facility] Comment on above: Performed By: #### B MP, LIPID #### [facility] [address] [address] [address] Perez Jaimes Urea nitrogen [Mass/Vol] 31.0 mg/dL Critically high 7.0-18.0 [facility] Comment on above: Performed By: #### B MP, LIPID #### [facility] [address] [address] [address] Perez Jaimes Urea nitrogen/Creatinine [Mass ratio] 23.5 mg/mg Normal [facility] Comment on above: Performed By: #### B MP, LIPID #### [facility] [address] [address] [address] Perez Jaimes MG MAMM SCREEN 3D WAI CADon 06-14-2022 MG MAMM SCREEN 3D WAI CAD Patient: SHITAL HIRSCH Exam Date: 06/14/2022 : 1950 Gender:F Ordering : DR SHAWN HIRSCH D.O. Admission #: [id number] Family : Order #: [id number] CLICK HERE TO VIEW EXAM RADIOLOGY REPORT [...] uterine cancer at age 65. LOCATION: [facility] BREAST COMPOSITION: Scattered areas fibroglandular density. FINDINGS: [...] Marin MD on 06/14/2022 at 12:41 Normal [facility] Vital Signs Date Time Vital Sign Value Performing Clinician Facility 03-27-2024 16:15-0400 Body height 154.94 cm [facility] 03-27-2024 16:15-0400 Body mass index (BMI) [Ratio] 38.6 kg/m2 [facility] 03-27-2024 16:15-0400 Body weight 92.75 kg [facility] 03-27-2024 16:15-0400 Diastolic blood pressure 76 mm[Hg] [facility] 03-27-2024 16:15-0400 Heart rate 72 /min [facility] 03-27-2024 16:15-0400 Respiratory rate 20 /min [facility] 03-27-2024 16:15-0400 Systolic blood pressure 152 mm[Hg] [facility] 01-23-2024 10:14-0400 Body height 154.94 cm [facility] 01-23-2024 10:14-0400 Body mass index (BMI) [Ratio] 35.3 kg/m2 [facility] 01-23-2024 10:14-0400 Body weight 84.87 kg [facility] 01-23-2024 10:14-0400 Diastolic blood pressure 78 mm[Hg] [facility] 01-23-2024 10:14-0400 Heart rate 62 /min [facility] 01-23-2024 10:14-0400 Respiratory rate 12 /min [facility] 01-23-2024 10:14-0400 Systolic blood pressure 150 mm[Hg] [facility] 10-24-2023 10:00-0500 Body height 154.94 cm Shawn Hirsch Other [facility] Other 10-24-2023 10:00-0500 Body mass index (BMI) [Ratio] 36.2 kg/m2 Shawn Beam. Other [facility] Other 10-24-2023 10:00-0500 Body weight 86.91 kg Shawn Beam. Other [facility] Other 10-24-2023 10:00-0500 Diastolic blood pressure 80 mm[Hg] Shawn Beam. Other [facility] Other 10-24-2023 10:00-0500 Respiratory rate 12 /min Shawn Beam. Other [facility] Other 10-24-2023 10:00-0500 Systolic blood pressure 139 mm[Hg] Shawn Beam. Other [facility] Other Encounters Encounter Date Encounter Type Care Provider Facility Start: 03-27-2024 End: 03-27-2024 ambulatory [facility] Work Phone: Start: 03-27-2024 End: 03-27-2024 Patient encounter procedure [facility] Work Phone: Start: 03-06-2024 End: 03-06-2024 ambulatory ISABEL NGUYEN Not Available Start: 01-25-2024 Non-patient / [facility]: Start: 01-23-2024 End: 01-23-2024 ambulatory [facility] Work Phone: Start: 01-23-2024 End: 01-23-2024 Patient encounter procedure [facility] Work Phone: Start: 12-27-2023 End: 12-27-2023 ambulatory ISABLE NGUYEN Not Available Start: 10-24-2023 End: 10-24-2023 ambulatory Shawn Hirsch Other [facility] Other Start: 10-24-2023 Office outpatient vi sit 25 minutes Shawn Hirsch [facility] Start: 10-09-2023 End: 10-09-2023 ambulatory Shawn Hirsch Other [facility] Other Start: 10-09-2023 Telephone encounter Shawn Hirsch [facility] Start: 06-21-2023 End: 06-21-2023 ambulatory Shawn Hirsch Other [facility] Other Start: 06-21-2023 Telephone encounter Shawn Hirsch [facility] Start: 06-19-2023 End: 06-19-2023 ambulatory Shawn Hirsch Other [facility] Other Start: 06-19-2023 Nursing evaluation o f patient and report Shawn Hirsch [facility] Start: 05-28-2023 End: 05-28-2023 ambulatory Shawn Hirsch Other [facility] Other Start: 05-28-2023 Telephone encounter Shawn Hirsch [facility] Start: 02-12-2023 End: 03-14-2023 ambulatory SHAIKH Graciela SMITH Facility:[facility] Start: 01-15-2023 End: 02-09-2023 ambulatory ADHIKARI H SARAH Facility:[facility] Start: 01-08-2023 End: 01-08-2023 ambulatory Shawn Hirsch Other [facility] Other Start: 01-08-2023 Telephone encounter Shawn MORELOS [facility] Start: 12-13-2022 End: 01-12-2023 ambulatory ADHIKARI H FAWWAD Facility:[facility] Start: 11-15-2022 End: 12-13-2022 ambulatory ADHIKARI H FAWWAD Facility:[facility] Start: 10-16-2022 End: 11-14-2022 ambulatory ADHIKARI H FAWWAD Facility:[facility] Start: 09-14-2022 End: 10-15-2022 ambulatory ADHIKARI H FAWWAD Facility:[facility] Start: 08-15-2022 End: 09-13-2022 ambulatory ADHIKARI H FAWWAD Facility:[facility] Start: 07-26-2022 End: 08-14-[address] SHAWN HIRSCH Facility:[facility] Start: 06-17-2022 End: 06-17-2022 ambulatory Shama Nice Other [facility] Other Start: 06-17-2022 Nursing evaluation o f patient and report Shama Nice [facility] Start: 06-15-2022 End: 06-16-[address] SHAWN HIRSCH Facility:[facility] Start: 06-15-2022 End: 07-15-2022 ambulatory ADHIKARI H FAWWAD Facility:[facility] Start: 06-14-2022 End: 06-15-[address] SHWAN HIRSCH Facility:[facility] Start: 05-23-2022 Adult health examination Vasquez Hirsch Other [facility] Other Start: 05-15-2022 End: 06-14-2022 ambulatory ADHIKARI H FAWWAD Facility:[facility] Start: 04-19-2022 End: 05-12-2022 ambulatory ADHIKARI H FAWWAD Facility:[facility] Start: 04-14-2022 End: 04-15-2022 ambulatory ADHIKARI H FAWWAD Facility:[facility] Start: 03-30-2020 Gynecological examin ation normal Shawn Hirsch Other [facility] Other Procedures Date Procedure Procedure Detail Performing Clinician Start: 01-03-2017 Hyperlipidemia screening Shawn Hirsch Other Start: 01-03-2017 Screening for malign ant neoplasm of colon Shawn Hirsch Other Start: 01-03-2017 Screening for osteoporosis Shawn Hirsch Other Start: 01-03-2017 Screening mammography B brooklynn Hirsch Other Start: 01-12-2016 General examination of patient Shawn Hirsch Other Depression screening Suzi Hirsch Other Screening for malign ant neoplasm of breast Shawn Hirsch Other Plan of Treatment Date Care Activity Detail Author [facility] Immunizations Immunization Date Immunization Notes Care Provider Fa angelia 06-19-2023 influenza, high dose seasonal, preservative-free Shawn Hirsch Other [facility] Other 06-19-2023 influenza virus vaccine, unspecified formulation [facility] 07-26-2022 influenza virus vaccine, split virus (incl. purified surface antigen) Shawn Hirsch Other [facility] Other 07-25-2022 influenza virus vaccine, unspecified formulation [facility] 07-25-2022 influenza, high dose seasonal, preservative-free Shawn Hirsch Other [facility] Other 08-08-2021 influenza virus vaccine, split virus (incl. purified surface antigen) Shawn Hirsch Other [facility] Other 08-08-2021 influenza virus vaccine, unspecified formulation [facility] 01-12-2021 COVID-19 Vaccine Pfi zer - Documentation Purposes Only Shawn Hirsch Other [facility] 07-06-2020 influenza virus vaccine, split virus (incl. purified surface antigen) Shawn Hirsch Other [facility] Other 07-06-2020 influenza virus vaccine, unspecified formulation [facility] 07-29-2019 influenza virus vaccine, split virus (incl. purified surface antigen) Shawn Hirsch Other [facility] Other 07-29-2019 influenza virus vaccine, unspecified formulation [facility] 07-09-2018 influenza virus vaccine, split virus (incl. purified surface antigen) Shawn Hirsch Other [facility] Other 07-09-2018 influenza virus vaccine, unspecified formulation [facility] 04-03-2018 influenza virus vaccine, split virus (incl. purified surface antigen) Shawn Hirsch Other [facility] Other 04-03-2018 influenza virus vaccine, unspecified formulation [facility] 01-11-2018 pneumococcal Conjuga te, unspecified formulation; Translations: [Need for prophylactic vaccination against Streptococcus pneumoniae (pneumococcus)] Shawn Hirsch Other [facility] Other 01-11-2018 pneumococcal polysaccharide vaccine, 23 valent Shawn Hirsch Other [facility] 08-03-2017 influenza virus vaccine, split virus (incl. purified surface antigen) Shawn Hirsch Other [facility] Other 08-03-2017 influenza virus vaccine, unspecified formulation [facility] 01-03-2017 pneumococcal conjuga te vaccine, 13 valent Shawn Hirsch Other [facility] 09-27-2016 influenza virus vaccine, split virus (incl. purified surface antigen) Shawn Hirsch Other [facility] Other 09-27-2016 influenza virus vaccine, unspecified formulation [facility] 07-23-2015 tetanus and diphther ia toxoids, adsorbed, preservative free, for adult use (5 Lf of tetanus toxoid and 2 Lf of diphtheria toxoid) Shawn Hirsch Other [facility] 07-30-2013 tetanus and diphther ia toxoids, adsorbed, preservative free, for adult use (5 Lf of tetanus toxoid and 2 Lf of diphtheria toxoid) Shawn Hirsch Other [facility] Payers Date Payer Category Payer Unknown [id number] 1958 Medicaid [id number] 2. [id number] 1958 Medicare [id number] 1950 Unknown [id number] 2.16.84 0.1.078281.3.579.2.593 1950 Unknown [id number] 2.16.84 0.1.360068.3.579.2.593 1950 Unknown [id number] 2.16.84 0.1.756974.3.579.2.593 1950 Unknown [id number] 2.16.84 0.1.287945.3.579.2.593 1950 Unknown [id number] 2.16.84 0.1.137300.3.579.2.593 1950 Unknown [id number] 2.16.84 0.1.881598.3.579.2.593 1950 Unknown [id number] 2.16.84 0.1.853118.3.579.2.593 1950 Unknown [id number] 2.16.84 0.1.532654.3.579.2.593 1950 Unknown [id number] 2.16.84 0.1.838575.3.579.2.593 1950 Unknown [id number] 2.16.84 0.1.837412.3.579.2.593 1951 Unknown [id number] 2.16.84 0.1.045595.3.579.2.593 1950 Unknown [id number] 2.16.84 0.1.548385.3.579.2.593 1950 Unknown [id number] 2.16.84 0.1.386937.3.579.2.593 1950 Unknown [id number] 2.16.84 0.1.061718.3.579.2.593 1950 Unknown [id number] 2.16.84 0.1.108383.3.579.2.1259 1950 Unknown [id number] 2.16.84 0.1.418392.3.579.2.1259 Medicare [id number] 2.1 [id number] Social History Date Type Detail Facility Sex Assigned At [facility] Other Start: 01-23-2024 Tobacco smoking stat [facility] Never smoked tobacco (finding) [facility] Start: 1950 Sex Assigned At Female F [facility] Evaluation note 10-24-2023 Note Date & Type [...] are 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 No bleeding complications Oct, Raynaud's phenomenon without [...] use, the patient reduces the risk for ID, CVA, HTN, cardiac dysrhythmias and sudden cardiac [...] time daily w/ sister and disabled nephew. [facility] Other Evaluation note 06-21-2023 Note Date & Type Note Facility 06-21-2023 Evaluation note Encounter Date Diagnosis Assessment Notes Jun, Primary hypertension (ICD-10 - I10) [facility] Other Evaluation note 05-28-2023 Note Date & Type Note Facility 05-28-2023 Evaluation note Encounter Date Diagnosis Assessment Notes May, Primary hypertension (ICD-10 - I10) [facility] Other Evaluation note 06-17-2022 Note Date & Type Note Facility 06-17-2022 Evaluation note Encounter Date Diagnosis Assessment Notes Jun, Contact with and (suspected) exposure to covid-19 (ICD-10 - Z20.822) [facility] Other Evaluation note Note Date & Type Note Facility Evaluation note No Information [facility] Other Evaluation note Note Date & Type Note Facility Evaluation note Diagnosis Onset Date Chronic venous insufficiency acute ERIS (generalized anxiety disorder) acute Obesity acute GERARD (obstructive sleep apnea) acute Paroxysmal atrial fibrillation acute Pure hypercholesterolemia ac miguel angel Raynaud's phenomenon without gangrene acute Stage 3b chronic kidney disease acute [facility] Work Phone: Evaluation note Note Date & Type Note Facility Evaluation note Diagnosis Onset Date Chronic venous insufficiency acute ERIS (generalized anxiety disorder) acute Obesity acute GERARD (obstructive sleep apnea) acute Paroxysmal atrial fibrillation acute Pure hypercholesterolemia ac miguel angel Raynaud's phenomenon without gangrene acute Stage 3b chronic kidney disease acute Chronic venous insufficiency acute GERARD (obstructive sleep apnea) acute Paroxysmal atrial fibrillation acute Raynaud's phenomenon without gangrene acute Stage 3b chronic kidney disease acute [facility] Work Phone: History general Narrative - Reported Note Date & Type Note Facility History general Narrative - Reported Type Medical History CVA in 2011 Medical History hypertension Medical History blood clot in leg and lung in 20 12 Surgical History ankle fracture repair 1997 Surgical History cholecystectomy 1996 Surgical History D&C 2010 Hospitalization History see above surgical [facility] Other History general Narrative - Reported Note [...] Surgical History cholecystectomy 1996 Surgical History D&C 2010 Hospitalization History see above surgical [facility] Other Summary Purpose Family History Relationship Condition [...] without gangrene Stage 3b chronic kidney disease Chief Complaint 3 month follow up leg swelling Reason for Visit Chronic venous insuf ficiency ERIS (generalized anxiety disorder) Obesity GERARD (obstructive sleep apnea) Paroxysmal atrial fibrillation Pure hypercholesterolemia Raynaud's phenomenon without gangrene Stage 3b chronic kidney disease Chronic venous insufficiency GERARD (obstructive sleep apnea) Paroxysmal atrial fibrillation Raynaud's phenomenon without gangrene Stage 3b chronic kidney disease Additional Source Comments REASON FOR VISIT (unrecogniz ed section and content) WHITE EQUINXO, CO VID EXPOSU REsmall red spotNot NeededNo InformationNo InformationRefillflu shotNo InformationERRORCheck Up INFORMATION SOURCE (unrecogn ized section and content) DATE CREATED AUTHOR 03/23/2023 [facility] DATE CREATED AUTHOR AUTHOR'S ORGANIZ ATION 03/08/2024 [facility] [employer] Care Teams (unrecognized sec tion and content) Team Status: Active Member Role Status Dates Shawn Hirshc , DO Primary Care Provider Active Team Status: Inactive Member Role Status Dates Shawn Hirsch , DO Primary Care Provide r, Attending Provider Active Start: January 23, 2024 End: January 23, 2024 Team Status: Active Member Role Status Dates Shawn Hirsch , DO Primary Care Provide r, Attending Provider Active Start: January 25, 2024 Team Status: Inactive Member Role Status Dates Shawn Hirsch , DO Primary Care Provide r, Attending Provider Active Start: March 27, 2024 End: March 27, 2024 Goals (unrecognized section and content) Goals [...] BE BASED ON THE PRIMARY CLINICAL RECORDS. [facility] [employer] [facility]. provides no warranty or guarantee of the accuracy or completeness of information in this document.
[2024-04-03 14:38] LABS: Anion Gap 6.8; BUN Creatinine Ratio 24.5; Calcium 9.7 mg/dL (8.5-10.1); Carbon Dioxide 34.2 mmol/L (21.0-32.0); Chloride 102 mmol/L (98-107); Estimated GFR (African America 38 (>=60); Estimated GFR (Non-African Ame 31 (>=60); Glucose 127 mg/dL (74-106); Sodium 139 mmol/L (136-145)
== END 2024-04-03 14:04 | disposition home or self-care (01) ==
LOC: LAB 14:06
PROVIDERS: PCP Internal Medicine; Visit Provider Internal Medicine
DX: N18.32 Chronic kidney disease, stage 3b (principal)
CPT/HCPCS: 36415; 80048

== ENCOUNTER 2024-04-14 00:28 | Outpatient (RCR) | payer MEDICARE, SELFPAY | END 2024-05-14 16:52 | disposition home or self-care (01) | LOC: MM 00:28 | PROVIDERS: PCP Internal Medicine; Visit Provider Internal Medicine | DX: Z51.81 Encounter for therapeutic drug level monitoring (principal); Z79.01 Long term (current) use of anticoagulants; I82.409 Acute embolism and thrombosis of unspecified deep veins of unspecified lower extremity | CPT/HCPCS: 85610; G0463 ==

== ENCOUNTER 2024-05-15 00:27 | Outpatient (RCR) | payer MEDICARE, SELFPAY | END 2024-06-13 08:53 | disposition home or self-care (01) | LOC: MM 00:27 | PROVIDERS: PCP Internal Medicine; Visit Provider Internal Medicine | DX: Z51.81 Encounter for therapeutic drug level monitoring (principal); Z79.01 Long term (current) use of anticoagulants; I82.409 Acute embolism and thrombosis of unspecified deep veins of unspecified lower extremity | CPT/HCPCS: 85610; G0463 ==

== ENCOUNTER 2024-06-11 10:06 | Outpatient (OUT) | payer MEDICARE, SELFPAY ==
--- OUTSIDE RECORDS SUMMARY | 2024-06-11 10:26 | XMS_ITS | CCD ---
Author Organization [facility] Care Team Providers Care Waste Oil Pumper Name Role Phone Shama Nice Unavailable Shawn [...] NGUYEN Attending Unavailable ISABEL NGUYEN Attending Unavailable ISABEL NGUYEN Attending Unavailable Allergies Allergy Classification Reported Allergen(s) Allergy Type Date of Onset Reaction(s) Facility (10 sources) Iodine Drug Allergy rash and throat swelling [facility] Other (1 source) Iodine and Iodide Containing Products Drug allergy (disorder) [facility] Repository (4 sources) patient allergy list reviewed by nurse or physicia Propensity to adverse reactions Comment:Done [facility] Other (4 sources) Allergies Reconciled Propensity to adverse reactions Unknown [facility] Other Medications Current Medications Medication Drug Class(es) Dates Sig (Normalized) Sig (Original) clonazePAM (2 sources) Benzodiazepine clonazePAM Activ e fluticasone propionate 0.05 mg/actuat metered dose nasal spray (15 sources) Corticosteroid Start: 01-19-2024 Fluticasone Propionate Active [...] Angiotensin Converting Enzyme Inhibitor Star t: 0802-01 take 1 tablet by mouth every twenty-fou r hours Lisinopril 5 MG 1 tablet Orally Once a day for 100 days May, Active losartan potassium 25 mg oral tablet (3 sources) Angiotensin 2 Receptor Em Star t: 03-15 End: 06-03 take 25 mg by mouth once daily Losartan Active 25 MG PO Daily 100 100 April 21, 2024 9:16pm torsemide 20 mg oral tablet (3 sources) Loop Diuretic Star t: 03-15 End: 03-16 take 20 mg by mouth once daily Torsemide Active 20 MG PO Daily 30 30 April 08, 2024 2:59pm warfarin sodium 5 mg oral tablet (13 sources) Vitamin K Antagonist Star t: 04-03 Warfarin Active 5 MG PO As Directed January 19, 2024 12:00am Warfarin Sodium 5 MG 1 tablet Orally as directed Active Warfarin Sodium Active Completed/Discontinued Medications Medication Drug Class(es) Dates Sig (Normalized) Sig (Original) amLODIPine 5 mg oral tablet (4 sources) Dihydropyridine Calcium Channel Em Start: 01-19-2024 [...] Date Documented Da te Episodic/Chronic Anxiety disorders (18 sources) Generalized anxiety disorder; Translations: [Generalized anxiety disorder] Chronic Cardiac dysrhythmias (18 sources) Paroxysmal atrial fibrillation; Translations: [Paroxysmal atrial fibrillation] Chronic Chronic kidney disease (17 sources) Chronic kidney disease stage 3B ; Translations: [Stage 3b chronic kidney disease] 01-19-2024 Chronic Chronic ulcer of skin (4 sources) Ulcer of lower extremity; Translations: [Ulcer of lower limb, unspecified] Onset: 02-14-2016 Chronic Deficiency and other anemia (15 sources) Anemia; Translations: [Anemia, unspecified] 01-19-2024 Episodic Disorders of lipid metabolism (18 sources) Pure hypercholesterolemia ; Translations: [Pure hypercholesterolemia , unspecified] Chronic Essential hypertension (20 sources) Essential hypertension; Translations: [Unspecified essential hypertension] Chronic Glaucoma (15 sources) Glaucoma; Translations: [Unspecified glaucoma] 01-19-2024 Chronic [...] Onset: 02-10-2023 Episodic Other aftercare (1 source) brine supervisor (current) use of anticoagulants; Translations: [DIRECTOR OF SOFTWARE ENGINEERING CURRNT USE ANTICOAGULANTS] Onset: 03-14-2023 Episodic Other aftercare (4 sources) Long-term current use of drug therapy; Translations: [Other halfway (current) drug therapy] Episodic Other circulatory disease (4 sources) Raynaud's phenomenon; Translations: [Raynaud's syndrome without gangrene] 01-19-2024 Chronic Other circulatory disease (7 sources) Raynaud's syndrome without gangrene; Translations: [Raynaud's syndrome] Chronic Other circulatory disease (4 sources) Orthostatic hypotension; Translations: [Orthostatic hypotension] Episodic Other diseases of veins and lymphatics (4 sources) Chronic venous hypertension (idiopathic) with ulcer of unspecified lower extremity; Translations: [Chronic venous hypertension (idiopathic) with ulcer of unspecified lower extremity] Onset: 02-14-2016 Chronic Other diseases of veins and lymphatics (19 sources) Peripheral venous insufficiency; Translations: [Venous insufficiency (chronic) (peripheral)] Onset: 01-28-2016 01-19-2024 Episodic Other diseases of veins and lymphatics (7 sources) Venous insufficiency (chronic) (peripheral); Translations: [Venous (peripheral) insufficiency, unspecified] Episodic Other female genital disorders (4 sources) Abnormal uterine bleeding; Translations: [Abnormal uterine and vaginal bleeding, unspecified] Onset: 12-03-2013 Chronic Other gastrointestinal disorders (4 sources) Irritable bowel syndrome; Translations: [Irritable bowel syndrome] Chronic Other hereditary and degenerative nervous system conditions (1 source) Impaired cognition; Translations: [Mild cognitive impairment, so stated] 06-09-2024 Chronic Other inflammatory condition of skin (11 sources) Lichen simplex chronicus; Translations: [Lichen simplex chronicus] 01-19-2024 Episodic Other injuries and conditions due to external causes (4 sources) History of fall; Translations: [History of falling] Episodic Other lower respiratory disease (11 sources) Nodule of lung; Translations: [Solitary pulmonary nodule] 01-19-2024 Episodic Other lower respiratory disease (4 sources) Solitary nodule of lung; Translations: [Solitary pulmonary nodule] Episodic Other nutritional; endocrine; and metabolic disorders (7 sources) Obesity; Translations: [Obesity, unspecified] 01-23-2024 Chronic Other nutritional; endocrine; and metabolic disorders (6 sources) Hypercalcemia; Translations: [Hypercalcemia] Resolved: 11-29-2021 01-25-2024 [...] nutritional; endocrine; and metabolic disorders (4 sources) Obesity, unspecified; Translations: [Obesity, unspecified] 01-23-2024 Chronic Other screening for suspected conditions (not mental disorders or infectious disease) (10 sources) Encounter for screening mammogram for malignant neoplasm of breast; Translations: [Coag./bleeding tests abnormal] Onset: 04-13-2016 Episodic Other upper respiratory infections (20 sources) Acute [...] limb] Onset: 12-06-2014 Episodic Residual codes; unclassified (19 sources) Obstructive sleep apnea syndrome; Translations: [Obstructive sleep apnea (adult) (pediatric)] Onset: 11-07-2017 01-19-2024 Chronic Residual codes; unclassified (15 sources) Periodic limb movement disorder; Translations: [Periodic limb movement disorder] 01-19-2024 Chronic Residual codes; unclassified (7 sources) Obstructive sleep apnea (adult) (pediatric); Translations: [Obstructive sleep apnea (adult)(pediatric)] Chronic Residual codes; unclassified (4 sources) Postmenopausal state; Translations: [Asymptomatic menopausal state] Episodic Spondylosis; intervertebral disc disorders; other back problems (15 sources) Lumbosacral spondylosis without myelopathy; Translations: [Spondylosis [...] 01-03-2017 Episodic Other aftercare (1 source) Other education rep (current) drug therapy; Translations: [OTH USP CURRENT DRUG THERAPY] Onset: 06-16-2022 Episodic Other connective tissue disease (4 sources) Fibromyalgia; Translations: [Fibromyalgia] Onset: 06-26-2018 Episodic Other lower respiratory disease (8 sources) Dyspnea; Translations: [Dyspnea, unspecified] Onset: 11-27-2014 Episodic Other skin disorders (4 sources) Actinic [...] glomerular filtrat ion rate (GFR) non- Americanon 04-03-2024 GFR/1.73 sq M.predicted among non-blacks MDRD (S/P/Bld) [Vol rate/Area] 31 mL/min/{1.73_m2} Low >=60 [facility] - Chemistry and C hemistry - challengeon 04-03-2024 Calcium [Mass/Vol] 9.7 mg/dL 8.5-10.1 [facility] Chloride [Moles/Vol] 102 mmol/L 98-107 [facility] CO2 [Moles/Vol] 34.2 mmol/L High 21.0-32.0 [facility] Creatinine [Mass/Vol] 1.63 mg/dL High 0.55-1.02 [facility] GFR/1.73 sq M.predicted MDRD (S/P/Bld) [Vol rate/Area] 38 mL/min/{1.73_m2} Low >=60 [facility] Glucose [Mass/Vol] 127 mg/dL High 74-106 [facility] Potassium [Moles/Vol] 4.0 mmol/L 3.5-5.1 [facility] Sodium [Moles/Vol] 139 mmol/L 136-145 [facility] Urea nitrogen [Mass/Vol] 40.0 mg/dL High 7.0-18.0 [facility] Urea nitrogen/Creatinine [Mass ratio] 24.5 mg/mg [facility] Serum or plasma anion gap de terminationon 04-03-2024 Anion gap [Moles/Vol] 6.8 mmol/L [facility] Estimated glomerular filtrat ion rate (GFR) non- Americanon 01-25-2024 GFR/1.73 sq M.predicted among non-blacks MDRD (S/P/Bld) [Vol rate/Area] 42 mL/min/{1.73_m2} >=60 [facility] - Chemistry and C hemistry - challengeon 01-25-2024 Calcium [Mass/Vol] 10.2 mg/dL 8.5-10.1 [facility] Chloride [Moles/Vol] 106 mmol/L 98-107 [facility] CO2 [Moles/Vol] 28.3 mmol/L 21.0-32.0 [facility] Creatinine [Mass/Vol] 1.25 mg/dL 0.55-1.02 [facility] GFR/1.73 sq M.predicted MDRD (S/P/Bld) [Vol rate/Area] 51 mL/min/{1.73_m2} >=60 [facility] Glucose [Mass/Vol] 83 mg/dL 74-106 [facility] Potassium [Moles/Vol] 4.7 mmol/L 3.5-5.1 [facility] Sodium [Moles/Vol] 141 mmol/L 136-145 [facility] Urea nitrogen [Mass/Vol] 31.0 mg/dL 7.0-18.0 [facility] Urea nitrogen/Creatinine [Mass ratio] 24.8 mg/mg [facility] Serum or plasma anion gap de terminationon 01-25-2024 Anion gap [Moles/Vol] 11.4 mmol/L [facility] SARS-CoV-2 (COVID-19) RNA NA A+probe Ql (Resp)on 06-17-2022 SARS-CoV-2 (COVID-19) RNA MARLON+probe Ql (Unsp spec) Negative [facility] Other CBC AUTO DIFFon 06-15-2022 BASO # 0.0 103/ul Normal 0.0-0.1 [facility] Comment on above: Performed By: #### C BC #### [facility] [address] [address] [address] Perez Jaimes Basophils/100 WBC (Bld) 0.5 % Normal 0.2-2.0 [facility] Comment on above: Performed By: #### C BC #### [facility] [address] [address] [address] Perez Jaimes EO # 0.1 103/ul Normal 0.0-0.7 [facility] Comment on above: Performed By: #### C BC #### [facility] [address] [address] [address] Perez Jaimes Eosinophils/100 WBC (Bld) 1.1 % Normal 0.9-7.0 [facility] Comment on above: Performed By: #### C BC #### [facility] [address] [place] [address] Dr. Perez Jaimes Erythrocyte distribution width (RBC) [Ratio] 12.6 % Normal 11.0-15.0 [facility] Comment on above: Performed By: #### C BC #### [facility] [address] [place] [address] Dr. Perez Jaimes Hematocrit (Bld) [Volume fraction] 41.3 % Normal 36.0-48.0 [facility] Comment on above: Performed By: #### C BC #### [facility] [address] [place] [address] Dr. Perez Jaimes Hemoglobin (Bld) [Mass/Vol] 12.9 g/dL Normal 12.0-16.0 [facility] Comment on above: Performed By: #### C BC #### [facility] [address] [place] [address] Dr. Perez Jaimes IG # 0.02 10e3/ul Normal 0.00-0.03 [facility] Comment on above: Performed By: #### C BC #### [facility] [address] [place] [address] Dr. Perez Jaimes IG % 0.3 % Normal 0.0-0.5 [facility] Comment on above: Performed By: #### C BC #### [facility] [address] [place] [address] Dr. Perez Jaimes LYMPH # 1.3 103/ul Normal 1.2-3.8 [facility] Comment on above: Performed By: #### C BC #### [facility] [address] [place] [address] Dr. Perez Jaimes Lymphocytes/100 WBC (Bld) 20.2 % Critically low 20.5-60.0 [facility] Comment on above: Performed By: #### C BC #### [facility] [address] [place] [address] Dr. Perez Jaimes MANUAL DIFF REQ NO Normal [facility] Comment on above: Performed By: #### C BC #### [facility] [address] [place] [address] Dr. Perez Jaimes MCH (RBC) [Entitic mass] 29.5 pg Normal 26.7-34.0 [facility] Comment on above: Performed By: #### C BC #### [facility] [address] [place] [address] Dr. Perez Jaimes MCHC (RBC) [Mass/Vol] 31.2 g/dL Normal 29.9-35.2 [facility] Comment on above: Performed By: #### C BC #### [facility] [address] [place] [address] Dr. Perez Jaimes MCV (RBC) [Entitic vol] 94.5 fL Normal 81.0-99.0 [facility] Comment on above: Performed By: #### C BC #### [facility] [address] [place] [address] Dr. Perez Jaimes MONO # 0.5 103/ul Normal 0.3-0.8 [facility] Comment on above: Performed By: #### C BC #### [facility] [address] [place] [address] Dr. Perez Jaimes Monocytes/100 WBC (Bld) 8.7 % Normal 1.7-12.0 [facility] Comment on above: Performed By: #### C BC #### [facility] [address] [address] [address] Perez Jaimes NEUT # 4.3 103/ul Normal 1.4-6.5 [facility] Comment on above: Performed By: #### C BC #### [facility] [address] [address] [address] Perez Jaimes Neutrophils/100 WBC (Bld) 69.2 % Normal 43.0-75.0 [facility] Comment on above: Performed By: #### C BC #### [facility] [address] [place] [address] Dr. Perez Jaimes Platelet mean volume (Bld) [Entitic vol] 9.6 fL Normal 9.5-13.5 [facility] Comment on above: Performed By: #### C BC #### [facility] [address] [place] [address] Dr. Perez Jaimes PLT 178 103/ul Normal 150-450 [facility] Comment on above: Performed By: #### C BC #### [facility] [address] [place] [address] Dr. Perez Jaimes RBC 4.37 106/ul Normal 4.20-5.40 [facility] Comment on above: Performed By: #### C BC #### [facility] [address] [place] [address] Dr. Perez Jaimes WBC 6.2 103/ul Normal 4.0-11.0 [facility] Comment on above: Performed By: #### C BC #### [facility] [address] [place] [address] Dr. Perez Jaimes LIPID PROFILEon 06-15-2022 CHOL-HDL RATIO NORM SEE BELOW Normal [facility] Comment on above: Result Comment: 3.3 - 4.4 LOW RISK 4.4 - 7.1 AVERAGE RISK 7.1 - 11.0 MODERATE RISK >11.0 HIGH RISK Performed By: #### B MP, LIPID #### [facility] [address] [place] [address] Dr. Perez Jaimes Cholesterol [Mass/Vol] 214 mg/dL Critically high <=200 [facility] Comment on above: Performed By: #### B MP, LIPID #### [facility] [address] [address] [address] Perez Jaimes Cholesterol in HDL [Mass/Vol] 70 mg/dL Critically high 40-60 [facility] Comment on above: Performed By: #### B MP, LIPID #### [facility] [address] [address] [address] Perez Jaimes Cholesterol in LDL [Mass/Vol] 109.4 mg/dL Normal [facility] Comment on above: Performed By: #### B MP, LIPID #### [facility] [address] [address] [address] Perez Jaimes Cholesterol.total/Ch olesterol in HDL [Mass ratio] 3.1 {ratio} Normal [facility] Comment on above: Performed By: #### B MP, LIPID #### [facility] [address] [address] [address] Perez Jaimes HDL NORMAL > or = 60 mg/dl - LOW CARDIOVASCULAR RISK <40 mg/dl - HIGH CARDIOVASCULAR RISK Normal [facility] Comment on above: Performed By: #### B MP, LIPID #### [facility] [address] [address] [address] Perez Jaimes LDL CALC NORMAL SEE BELOW Normal [facility] Comment on above: Result Comment: <100 mg/dl OPTIMAL 100 - 129 mg/dl NEAR OR ABOVE OPTIMAL 130 - 159 mg/dl BORDERLINE HIGH 160 - 189 mg/dl HIGH >190 mg/dl VERY HIGH Performed By: #### B MP, LIPID #### [facility] [address] [address] [address] Perez Jaimes Triglyceride [Mass/Vol] 173 mg/dL Critically high <=150 [facility] Comment on above: Performed By: #### B MP, LIPID #### [facility] [address] [address] [address] Perez Jaimes VLDL CALC 34.6 mg/dL Normal [facility] Comment on above: Performed By: #### B MP, LIPID #### [facility] [address] [address] [address] Perez Jaimes PROF CHEM 8 (BAS METB)on Anion gap [Moles/Vol] 12.6 mmol/L Normal [facility] Comment on above: Performed By: #### B MP, LIPID #### [facility] [address] [address] [address] Perez Jaimes Calcium [Mass/Vol] 9.7 mg/dL Normal 8.5-10.1 [facility] Comment on above: Performed By: #### B MP, LIPID #### [facility] [address] [address] [address] Perez Jaimes Chloride [Moles/Vol] 103 mmol/L Normal 98-107 [facility] Comment on above: Performed By: #### B MP, LIPID #### [facility] [address] [place] [address] Dr. Perez Jaimes CO2 [Moles/Vol] 27.0 mmol/L Normal 21.0-32.0 [facility] Comment on above: Performed By: #### B MP, LIPID #### [facility] [address] [address] [address] Perez Jaimes Creatinine [Mass/Vol] 1.32 mg/dL Critically high 0.55-1.02 [facility] Comment on above: Performed By: #### B MP, LIPID #### [facility] [address] [place] [address] Dr. Perez Jaimes EGFR-AF NEW ZEALANDER 48 mL/min/1.73m2 Critically low >=60 [facility] Comment on above: Performed By: #### B MP, LIPID #### [facility] [address] [address] [address] Perez Jaimes EGFR-NON AF NEW ZEALANDER 40 mL/min/1.73m2 Critically low >=60 [facility] Comment on above: Performed By: #### B MP, LIPID #### [facility] [address] [address] [address] Perez Jaimes Glucose [Mass/Vol] 99 mg/dL Normal 74-106 [facility] Comment on above: Performed By: #### B MP, LIPID #### [facility] [address] [place], [place] [address] Dr. Perez Jaimes Potassium [Moles/Vol] 4.6 mmol/L Normal 3.5-5.1 [facility] Comment on above: Performed By: #### B MP, LIPID #### [facility] [address] [address] [address] Perez Jaimes Sodium [Moles/Vol] 138 mmol/L Normal 136-145 [facility] Comment on above: Performed By: #### B MP, LIPID #### [facility] [address] [address] [address] Perez Jaimes Urea nitrogen [Mass/Vol] 31.0 mg/dL Critically high 7.0-18.0 [facility] Comment on above: Performed By: #### B MP, LIPID #### [facility] [address] [address] [address] Perez Jaimes Urea nitrogen/Creatinine [Mass ratio] 23.5 mg/mg Normal [facility] Comment on above: Performed By: #### B MP, LIPID #### [facility] [address] [address] [address] Perez Jaimes MG MAMM SCREEN 3D WAI CADon 06-14-2022 MG MAMM SCREEN 3D WAI CAD Patient: SHITAL HIRSCH Exam Date: 06/14/2022 : 1950 Gender:F Ordering : DR SHAWN HIRSCH D.O. Admission #: [id number] Family : Order #: [id number] CLICK HERE TO VIEW EXAM RADIOLOGY REPORT [...] uterine cancer at age 65. LOCATION: [facility] BREAST COMPOSITION: Scattered areas fibroglandular [...] Marin MD on 06/14/2022 at 12:41 Normal [facility] Vital Signs Date Time Vital Sign Value Performing Clinician Facility 06-09-2024 11:28-0400 Body height 154.94 cm [facility] 06-09-2024 11:28-0400 Body mass index (BMI) [Ratio] 36.4 kg/m2 [facility] 06-09-2024 11:28-0400 Body weight 87.54 kg [facility] 06-09-2024 11:28-0400 Diastolic blood pressure 72 mm[Hg] [facility] 06-09-2024 11:28-0400 Heart rate 63 /min [facility] 06-09-2024 11:28-0400 SaO2% (BldA) [Mass fraction] 97 % [facility] 06-09-2024 11:28-0400 Systolic blood pressure 128 mm[Hg] [facility] 04-21-2024 15:46-0400 Body height 154.94 cm [facility] 04-21-2024 15:46-0400 Body mass index (BMI) [Ratio] 36.3 kg/m2 [facility] 04-21-2024 15:46-0400 Body weight 87.25 kg [facility] 04-21-2024 15:46-0400 Diastolic blood pressure 64 mm[Hg] [facility] 04-21-2024 15:46-0400 Heart rate 76 /min [facility] 04-21-2024 15:46-0400 Respiratory rate 12 /min [facility] 04-21-2024 15:46-0400 Systolic blood pressure 109 mm[Hg] [facility] 03-27-2024 16:15-0400 Body height 154.94 cm [facility] 03-27-2024 16:15-0400 Body mass index (BMI) [Ratio] 38.6 kg/m2 [facility] 03-27-2024 16:15-0400 Body weight 92.75 kg [facility] 03-27-2024 16:15-0400 Diastolic blood pressure 76 mm[Hg] [facility] 03-27-2024 16:15-0400 Heart rate 72 /min [facility] 03-27-2024 16:15-0400 Respiratory rate 20 /min [facility] 03-27-2024 16:15-0400 Systolic blood pressure 152 mm[Hg] [facility] 01-23-2024 10:14-0400 Body height 154.94 cm [facility] 01-23-2024 10:14-0400 Body mass index (BMI) [Ratio] 35.3 kg/m2 [facility] 01-23-2024 10:14-0400 Body weight 84.87 kg [facility] 01-23-2024 10:14-0400 Diastolic blood pressure 78 mm[Hg] [facility] 01-23-2024 10:14-0400 Heart rate 62 /min [facility] 01-23-2024 10:14-0400 Respiratory rate 12 /min [facility] 01-23-2024 10:14-0400 Systolic blood pressure 150 mm[Hg] [facility] 10-24-2023 10:00-0500 Body height 154.94 cm Shawn Ball Other [employer] [facility] Other 10-24-2023 10:00-0500 Body mass index (BMI) [Ratio] 36.2 kg/m2 Shawn Ball Other [employer] [facility] Other 10-24-2023 10:00-0500 Body weight 86.91 kg Shawn Ball Other [employer] [facility] Other 10-24-2023 10:00-0500 Diastolic blood pressure 80 mm[Hg] Shawn Ball Other [facility] Other 10-24-2023 10:00-0500 Respiratory rate 12 /min Shawn Hirsch Other [facility] Other 10-24-2023 10:00-0500 Systolic blood pressure 139 mm[Hg] Shawn Hirsch Other [facility] Other Encounters Encounter Date Encounter Type Care Provider Facility Start: 06-09-2024 End: 06-09-2024 ambulatory [facility] Work Phone: Start: 06-09-2024 End: 06-09-2024 Patient encounter procedure [facility] Work Phone: Start: 05-22-2024 End: 05-22-2024 ambulatory ISABEL NGUYEN Not Available Start: 04-21-2024 End: 04-21-2024 Patient encounter procedure [facility] Work Phone: Start: 04-03-2024 Non-patient / Non-visit [facility] Work Phone: Start: 03-27-2024 End: 03-27-2024 ambulatory [facility] Work Phone: Start: 03-27-2024 End: 03-27-2024 Patient encounter procedure [facility] Work Phone: Start: 03-06-2024 End: 03-06-2024 ambulatory ISABEL NGUYEN Not Available Start: 01-25-2024 Non-patient / Non-visit [facility] Work Phone: Start: 01-23-2024 End: 01-23-2024 ambulatory [facility] Work Phone: Start: 01-23-2024 End: 01-23-2024 Patient encounter procedure [facility] Work Phone: Start: 12-27-2023 End: 12-27-2023 ambulatory ISABEL NGUYEN Not Available Start: 10-24-2023 End: 10-24-2023 ambulatory Shawn Hirsch Other [facility] Other Start: 10-24-2023 Office outpatient vi sit 25 minutes Shawn Hirsch [facility] Start: 10-09-2023 End: 10-09-2023 ambulatory Shawn Hirsch Other [facility] Other Start: 10-09-2023 Telephone encounter Shawn Hirsch [facility] Start: 06-21-2023 End: 06-21-2023 ambulatory Shawn Hirsch Other [facility] Other Start: 06-21-2023 Telephone encounter Shawn Hirsch [facility] Start: 06-19-2023 End: 06-19-2023 ambulatory Shawn Hirsch Other [facility] Other Start: 06-19-2023 Nursing evaluation o f patient and report Shawn Hirsch [facility] Start: 05-28-2023 End: 05-28-2023 ambulatory Shawn Hirsch Other [facility] Other Start: 05-28-2023 Telephone encounter Shawn Hirsch [facility] Start: 02-12-2023 End: 03-14-2023 ambulatory ADHIKARI H FAWWAD Facility:[facility]1 Start: 01-15-2023 End: 02-09-2023 ambulatory ADHIKARI H FAWWAD Facility:[facility] Start: 01-08-2023 End: 01-08-2023 ambulatory Shawn Hirsch Other [facility] Other Start: 01-08-2023 Telephone encounter Shawn Hirsch [facility] Start: 12-13-2022 End: 01-12-2023 ambulatory ADHIKARI H FAWWAD Facility:[facility] Start: 11-15-2022 End: 12-13-2022 ambulatory ADHIKARI H FAWWAD Facility:[facility] Start: 10-16-2022 End: 11-14-2022 ambulatory ADHIKARI H FAWWAD Facility:[facility] Start: 09-14-2022 End: 10-15-2022 ambulatory ADHIKARI H FAWWAD Facility:[facility] Start: 08-15-2022 End: 09-13-2022 ambulatory ADHIKARI H FARonaldWAD Facility:[facility] Start: 07-26-2022 End: 08-14-[address] SHAWN HIRSCH Facility:[facility] Start: 06-17-2022 End: 06-17-2022 ambulatory Shama Arlet Other [facility] Other Start: 06-17-2022 Nursing evaluation o f patient and report Shama Arlet [facility] Start: 06-15-2022 End: 06-16-[address] SHAWN HIRSCH Facility:[facility] Start: 06-15-2022 End: 07-15-2022 ambulatory ADHIKARI H FAIHSAN Facility:[facility] Start: 06-14-2022 End: 06-15-[address] SHAWN HIRSCH Facility:[facility] Start: 05-23-2022 Adult health examination Vasquez jada Hirsch Other [facility] Other Start: 05-15-2022 End: 06-14-2022 ambulatory ADHIKARI H FAWWAD Facility:[facility] Start: 04-19-2022 End: 05-12-2022 ambulatory ADHIKARI H FAWWAD Facility:[facility] Start: 04-14-2022 End: 04-15-2022 ambulatory ADHIKARI H FAIHSAN Facility:[facility] Start: 03-30-2020 Gynecological examin ation normal Shawn Hirsch Other [facility] Other Procedures Date Procedure Procedure Detail Performing [...] of Treatment Date Care Activity Detail Author Comprehensive metabo lic 2000 panel - Serum or Plasma [facility] enter MR Brain WO contrast [facility] Immunizations Immunization Date Immunization Notes Care Provider Fa cility 06-19-2023 influenza, high dose seasonal, preservative-free Shawn Hirsch Other [facility] Other 06-19-2023 influenza virus vaccine, unspecified formulation [facility] 07-26-2022 influenza virus vaccine, split virus (incl. purified surface antigen) Shawn Hirsch Other [facility] Other 07-25-2022 influenza virus vaccine, unspecified formulation [facility] 07-25-2022 influenza, high dose seasonal, preservative-free Shawn Hirsch Other [facility] Other 08-08-2021 influenza virus vaccine, split virus (incl. purified surface antigen) Shawn Hirsch Other [facility] Other 08-08-2021 influenza virus vaccine, unspecified formulation [facility] 01-12-2021 COVID-19 Vaccine Pfi zer - Documentation Purposes Only Shawn Hirsch Other [facility] 07-06-2020 influenza virus vaccine, split virus (incl. purified surface antigen) Shawn Hirsch Other [facility] Other 07-06-2020 influenza virus vaccine, unspecified formulation [facility] 07-29-2019 influenza virus vaccine, split virus (incl. purified surface antigen) Shawn Hirsch Other [facility] Other 07-29-2019 influenza virus vaccine, unspecified formulation [facility] 07-09-2018 influenza virus vaccine, split virus (incl. purified surface antigen) Shawn Hirsch Other [facility] Other 07-09-2018 influenza virus vaccine, unspecified formulation [facility] 04-03-2018 influenza virus vaccine, split virus (incl. purified surface antigen) Shawn Hirsch Other [facility] Other 04-03-2018 influenza virus vaccine, unspecified formulation [facility] 01-11-2018 pneumococcal Conjuga te, unspecified formulation; Translations: [Need for prophylactic vaccination against Streptococcus pneumoniae (pneumococcus)] Shawn Hirsch Other [facility] Other 01-11-2018 pneumococcal polysaccharide vaccine, 23 valent Shawn Hirsch Other [facility] 08-03-2017 influenza virus vaccine, split virus (incl. purified surface antigen) Shawn Hirsch Other [facility] Other 08-03-2017 influenza virus vaccine, unspecified formulation [facility] 01-03-2017 pneumococcal conjuga te vaccine, 13 valent Shawn Hirsch Other [facility] 09-27-2016 influenza virus vaccine, split virus (incl. purified surface antigen) Shawn Hirsch Other [facility] Other 09-27-2016 influenza virus vaccine, unspecified formulation [facility] 07-23-2015 tetanus and diphther ia toxoids, adsorbed, preservative free, for adult use (5 Lf of tetanus toxoid and 2 Lf of diphtheria toxoid) Shawn Hirsch Other [facility] 07-30-2013 tetanus and diphther ia toxoids, adsorbed, preservative free, for adult use (5 Lf of tetanus toxoid and 2 Lf of diphtheria toxoid) Shawn Hirsch Other [facility] Payers Date Payer Category Payer Unknown [id number] 1958 Medicaid [id number] 2. [id number] 1958 Medicare [id number] 1950 Unknown [id number] 2.16.84 0.1.431730.3.579.2.593 1950 Unknown [id number] 2.16.84 0.1.232957.3.579.2.593 1950 Unknown [id number] 2.16.84 0.1.759794.3.579.2.593 1950 Unknown [id number] 2.16.84 0.1.970176.3.579.2.593 1950 Unknown [id number] 2.16.84 0.1.532153.3.579.2.593 1950 Unknown [id number] 2.16.84 0.1.617588.3.579.2.593 1950 Unknown [id number] 2.16.84 0.1.940283.3.579.2.593 1950 Unknown [id number] 2.16.84 0.1.899672.3.579.2.593 1950 Unknown [id number] 2.16.84 0.1.621619.3.579.2.593 1950 Unknown [id number] 2.16.84 0.1.870072.3.579.2.593 1950 Unknown [id number] 2.16.84 0.1.637543.3.579.2.593 1950 Unknown [id number] 2.16.84 0.1.465465.3.579.2.593 1950 Unknown [id number] 2.16.84 0.1.850547.3.579.2.593 1950 Unknown [id number] 2.16.84 0.1.073870.3.579.2.593 1950 Unknown [id number] 2.16.84 0.1.286888.3.579.2.1259 1950 Unknown [id number] 2.16.84 0.1.501727.3.579.2.1259 1950 Unknown [id number] 2.16.84 0.1.011775.3.579.2.1259 Medicare [id number] 2.1 [id number] Social History Date Type Detail Facility Sex Assigned At [facility] Other Start: 01-23-2024 Tobacco smoking stat [facility] Never smoked tobacco (finding) [facility] Start: 1950 Sex Assigned At Female F 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 No bleeding complications Oct, Raynaud's phenomenon without [...] use, the patient reduces the risk for HI, CVA, HTN, cardiac dysrhythmias and sudden cardiac [...] time daily w/ sister and disabled nephew. [facility] Other Evaluation note 06-21-2023 Note Date & Type Note Facility 06-21-2023 Evaluation note Encounter Date Diagnosis Assessment Notes Jun, Primary hypertension (ICD-10 - I10) [facility] Other Evaluation note 05-28-2023 Note Date & Type Note Facility 05-28-2023 Evaluation note Encounter Date Diagnosis Assessment Notes May, Primary hypertension (ICD-10 - I10) [facility] Other Evaluation note 06-17-2022 Note Date & Type Note Facility 06-17-2022 Evaluation note Encounter Date Diagnosis Assessment Notes Jun, Contact with and (suspected) exposure to covid-19 (ICD-10 - Z20.822) [facility] Other Evaluation note Note Date & Type Note Facility Evaluation note No Information [facility] [employer] Other Evaluation note Note Date & Type Note Facility Evaluation note Diagnosis Onset Date Chronic venous insufficiency acute ERIS (generalized anxiety disorder) acute Obesity acute GERARD (obstructive sleep apnea) acute Paroxysmal atrial fibrillation acute Pure hypercholesterolemia ac la posta Raynaud's phenomenon without gangrene acute Stage 3b chronic kidney disease acute [facility] Work Phone: Evaluation note Note Date & Type Note Facility Evaluation note Diagnosis Onset Date Chronic venous insufficiency acute ERIS (generalized anxiety disorder) acute Obesity acute GERARD (obstructive sleep apnea) acute Paroxysmal atrial fibrillation acute Pure hypercholesterolemia ac la posta Raynaud's phenomenon without gangrene acute Stage 3b chronic kidney disease acute Chronic venous insufficiency acute GERARD (obstructive sleep apnea) acute Paroxysmal atrial fibrillation acute Raynaud's phenomenon without gangrene acute Stage 3b chronic kidney disease acute [facility] Work Phone: Evaluation note Note Date & Type Note Facility Evaluation note Diagnosis Onset Date Chronic venous insufficiency acute Essential hypertension acute GERARD (obstructive sleep apnea) acute Paroxysmal atrial fibrillation acute Raynaud's phenomenon without gangrene acute Stage 3b chronic kidney disease acute Chronic venous insufficiency acute Essential hypertension acute Obesity acute GERARD (obstructive sleep apnea) acute Paroxysmal atrial fibrillation acute Raynaud's phenomenon without gangrene acute Stage 3b chronic kidney disease acute Chronic venous insufficiency acute Essential hypertension acute Obesity acute GERARD (obstructive sleep apnea) acute Paroxysmal atrial fibrillation acute Raynaud's phenomenon without gangrene acute Screening mammogram for breast cancer acute Stage 3b chronic kidney disease acute Encounter for subsequent [facility] wellness visit in Medicare patient noneactive [facility] Work Phone: History general Narrative - Reported Note Date & Type Note Facility History general Narrative - Reported Type Medical History CVA in 2012 Medical History hypertension Medical History blood clot in leg and lung in 20 12 Surgical History ankle fracture repair 1997 Surgical History cholecystectomy 1996 Surgical History D&C 2010 Hospitalization History see above surgical histo ry [facility] Other History general Narrative - Reported Note [...] D&C 2010 Hospitalization History see above surgical histo ry [facility] Other Summary Purpose Family History Relationship Condition Age at Onset Recorded Date/T cristina father Malignant neoplasm Unknown Unknown grandparent Family history of mental disorder Unknown Not Specified Unknown Malignant neoplasm Unknown Heart disease Unknown Relationship Condition Age at Onset Recorded Date/T cristina father Malignant neoplasm Unknown Unknown grandparent Family history of mental disorder Unknown mother Unknown Malignant neoplasm Unknown Heart disease Unknown [...] Stage 3b chronic kidney disease Chief Complaint leg swelling 2 week Medicare Wellness Reason for Visit Chronic venous insuf ficiency Essential hypertension GERARD (obstructive sleep apnea) Paroxysmal atrial fibrillation Raynaud's phenomenon without gangrene Stage 3b chronic kidney disease Chronic venous insufficiency Essential hypertension Obesity GERARD (obstructive sleep apnea) Paroxysmal atrial fibrillation Raynaud's phenomenon without gangrene Stage 3b chronic kidney disease Chronic venous insufficiency Essential hypertension Obesity GERARD (obstructive sleep apnea) Paroxysmal atrial fibrillation Raynaud's phenomenon without gangrene Screening mammogram for breast cancer Stage 3b chronic kidney disease Encounter for subsequent annual wellness visit in Medicare patient Additional Source Comments REASON FOR VISIT (unrecogniz ed section and content) WHITE EQUINXO, CO VID EXPOSU REsmall red spotNot NeededNo InformationNo InformationRefillflu shotNo InformationERRORCheck Up INFORMATION SOURCE (unrecogn ized section and content) DATE CREATED AUTHOR 03/23/2023 [facility] DATE CREATED AUTHOR AUTHOR'S JONNY ATJESSICA 05/24/2024 [facility] [employer] Care Teams (unrecognized sec tion and content) Team Status: Active Member Role Status Dates Shawn Hirsch , DO Primary Care Provider Active Team [...] March 27, 2024 End: March 27, 2024 Team Status: Active Member Role Status Ki Shawn Hirsch , DO Primary Care Provide r, Attending Provider Active Start: April 03, 2024 Team Status: Inactive Member Role Status Ki Shawn Hirsch , DO Primary Care Provide r, Attending Provider Active Start: April 21, 2024 End: April 21, 2024 Team Status: Inactive Member Role Status Ki Shawn Hirsch , DO Primary Care Provide r, Attending Provider Active Start: June 09, 2024 End: June 09, 2024 Goals (unrecognized section and content) Goals [...] BE BASED ON THE PRIMARY CLINICAL RECORDS. [facility]. provides no warranty or guarantee of the accuracy or completeness of information in this document.
[2024-06-11 10:37] LABS: Basophils Absolute Auto 0.1 10^3/uL (0.0-0.1); Basophils Percent Auto 0.9 % (0.2-2.0); Eosinophils Absolute Auto 0.1 10^3/uL (0.0-0.7); Eosinophils Percent Auto 1.4 % (0.9-7.0); Hemoglobin 12.7 g/dL (12.0-16.0); Immature Granulocytes Abs Auto 0.02 10^3/uL (0.00-0.03); Immature Granulocytes Pct Auto 0.4 % (0.0-0.5); Lymphocytes Absolute Auto 1.3 10^3/uL (1.2-3.8); Lymphocytes Percent Auto 22.9 % (20.5-60.0); Mean Corpuscular HGB Conc 31.8 g/dL (29.9-35.2); Mean Corpuscular Hemoglobin 29.6 pg (26.7-34.0); Mean Corpuscular Volume 93.2 fL (81.0-99.0); Mean Platelet Volume 9.7 fL (9.5-13.5); Monocytes Absolute Auto 0.5 10^3/uL (0.3-0.8); Monocytes Percent Auto 8.9 % (1.7-12.0); Neutrophils Absolute Auto 3.7 10^3/uL (1.4-6.5); Neutrophils Percent Auto 65.5 % (43.0-75.0); Platelet Count 167 10^3/uL (150-450); Red Blood Count 4.29 10^6/uL (4.20-5.40); Red Cell Distribution Width 13.9 % (11.0-15.0); White Blood Count 5.7 10^3/uL (4.0-11.0)
[2024-06-11 11:36] LABS: Alanine Aminotransferase 20 U/L (14-59); Albumin Level 3.4 g/dL (3.4-5.0); Alkaline Phosphatase 68 U/L (46-116); Anion Gap 14.4; Aspartate Amino Transferase 16 U/L (15-37); BUN Creatinine Ratio 20.9; Bilirubin Total 0.8 mg/dL (0.2-1.0); Calcium 9.7 mg/dL (8.5-10.1); Carbon Dioxide 26.9 mmol/L (21.0-32.0); Chloride 105 mmol/L (98-107); Chol HDL Ratio 2.6; Cholesterol 202 mg/dL (<=200); Estimated GFR (African America 39 (>=60); Estimated GFR (Non-African Ame 32 (>=60); Globulin 3.5 g/dL; Glucose 101 mg/dL (74-106); HDL Cholesterol 78 mg/dL (40-60); Potassium 4.3 mmol/L (3.5-5.1); Sodium 142 mmol/L (136-145); Thyroid Stimulating Hormone 1.919 uIU/mL (0.358-3.740); Total Protein 6.9 g/dL (6.4-8.2); Triglycerides 112 mg/dL (<=150); VLDL CHOLESTEROL 22.4 mg/dL
[2024-06-12 09:15] LABS: Vitamin B12 566 pg/mL (232-1245)
[2024-06-17 18:08] LABS: Methylmalonic Acid, Serum 270 nmol/L (0-378)
== END 2024-06-11 10:07 | disposition home or self-care (01) ==
LOC: LAB 10:13
PROVIDERS: PCP Internal Medicine; Visit Provider Internal Medicine
DX: D64.9 Anemia, unspecified (principal); N18.32 Chronic kidney disease, stage 3b; R53.83 Other fatigue; G31.84 Mild cognitive impairment of uncertain or unknown etiology; I12.9 Hypertensive chronic kidney disease with stage 1 through stage 4 chronic kidney disease, or unspecified chronic kidney disease; Z51.81 Encounter for therapeutic drug level monitoring; Z79.01 Long term (current) use of anticoagulants; I82.409 Acute embolism and thrombosis of unspecified deep veins of unspecified lower extremity
CPT/HCPCS: 36415; 80053; 80061; 82306; 82607; 82728; 82746; 83921; 84443; 85025; 85610

== ENCOUNTER 2024-06-16 00:45 | Outpatient (RCR) | payer MEDICARE, SELFPAY | END 2024-07-14 23:18 | disposition home or self-care (01) | LOC: MM 00:45 | PROVIDERS: PCP Internal Medicine; Visit Provider Internal Medicine | DX: Z51.81 Encounter for therapeutic drug level monitoring (principal); Z79.01 Long term (current) use of anticoagulants; I82.409 Acute embolism and thrombosis of unspecified deep veins of unspecified lower extremity ==

== ENCOUNTER 2024-06-26 09:44 | Outpatient (OUT) | payer MEDICARE, SELFPAY ==
--- NOTE | 2024-06-26 09:49 | XR_ITS ---
[address] [address] Patient Name: TA HIRSCH MRN: [id number] date: 1950 Sex: F Assigned Patient Location: MRI Current Patient Location: MRI Accession/Order Number: [id number] Exam Date: 06/26/2024 10:13 Report Date: 06/26/2024 10:53 At the request of: HAYDEN HIRSCH Procedure: XR foot RT 2V PROCEDURE: XR foot RT 2V COMPARISON: None. 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 Remote bimalleolar fractures with internal fixation. Lateral plate and screws across the fibula. K wires and fixation screw across the medial malleolus. Contour deformity of the medial navicular likely represents a remote fracture with incomplete bony bridging. Moderate degenerative changes with joint space narrowing and marginal osteophyte formation. Moderate enthesopathic spurring of the calcaneus at the Achilles and plantar insertions SOFT TISSUES:Negative. No visible soft tissue swelling. EFFUSION:None visible. OTHER: Negative. XR/XR foot RT 2V IMPRESSION: Remote bimalleolar fractures with internal fixation Electronically authenticated by: RODOLFO ELLIS Date: 06/26/2024 10:53
--- OUTSIDE RECORDS SUMMARY | 2024-06-26 09:58 | XMS_ITS | CCD ---
Author Organization [facility] Care Team Providers Care Downstream Biomanufacturing Technician Name Role Phone Shama Nice Unavailable Shawn [...] Iodine Drug Allergy rash and throat swelling [employer] Other (1 source) Iodine and Iodide Containing Products Drug allergy (disorder) [facility] Repository (4 sources) patient allergy list reviewed by nurse or physicia Propensity to adverse reactions Comment:Done [employer] Other (4 sources) Allergies Reconciled Propensity to adverse reactions Unknown [employer] Other Medications Current Medications Medication Drug Class(es) Dates Sig (Normalized) Sig (Original) clonazePAM (2 sources) Benzodiazepine clonazePAM Activ e fluticasone propionate 0.05 mg/actuat metered dose nasal spray (16 sources) Corticosteroid Start: 01-19-2024 Fluticasone Propionate Active [...] Active losartan potassium 25 mg oral tablet (5 sources) Angiotensin 2 Receptor Em Star t: 03-15 End: 06-03 take 25 mg by mouth once daily Losartan Active 25 MG PO Daily 100 100 April 21, 2024 9:16pm torsemide 20 mg oral tablet (5 sources) Loop Diuretic Star t: 03-15 End: 03-16 take 20 mg by mouth once daily Torsemide Active 20 MG PO Daily 30 30 April 08, 2024 2:59pm warfarin sodium 5 mg oral tablet (14 sources) Vitamin K Antagonist Star t: 04-03 Warfarin Active 5 MG PO As Directed January 19, 2024 12:00am Warfarin Sodium 5 MG 1 tablet Orally as directed Active Warfarin Sodium Active Completed/Discontinued Medications Medication Drug Class(es) Dates Sig (Normalized) Sig (Original) amLODIPine 5 mg oral tablet (5 sources) Dihydropyridine Calcium Channel Em Start: 01-19-2024 [...] Date Documented Da te Episodic/Chronic Anxiety disorders (19 sources) Generalized anxiety disorder; Translations: [Generalized anxiety disorder] Chronic Cardiac dysrhythmias (20 sources) Paroxysmal atrial fibrillation; Translations: [Paroxysmal atrial fibrillation] Chronic Chronic kidney disease (20 sources) Chronic kidney disease stage 3B ; Translations: [Stage 3b chronic kidney disease] 01-19-2024 Chronic Chronic ulcer of skin (4 sources) Ulcer of lower extremity; Translations: [Ulcer of lower limb, unspecified] Onset: 02-14-2016 Chronic Deficiency and other anemia (16 sources) Anemia; Translations: [Anemia, unspecified] 01-19-2024 Episodic Disorders of lipid metabolism (19 sources) Pure hypercholesterolemia ; Translations: [Pure hypercholesterolemia , unspecified] Chronic Essential hypertension (20 sources) Essential hypertension; Translations: [Unspecified essential hypertension] Chronic Glaucoma (16 sources) Glaucoma; Translations: [Unspecified glaucoma] 01-19-2024 Chronic [...] Onset: 02-10-2023 Episodic Other aftercare (1 source) flight information expediter (current) use of anticoagulants; Translations: [NURSING HOME CURRNT USE ANTICOAGULANTS] Onset: 03-14-2023 Episodic Other aftercare (4 sources) Long-term current use of drug therapy; Translations: [Other skilled nursing (current) drug therapy] Episodic Other circulatory disease (5 sources) Raynaud's phenomenon; Translations: [Raynaud's syndrome without gangrene] 01-19-2024 Chronic Other circulatory disease (10 sources) Raynaud's syndrome without gangrene; Translations: [Raynaud's syndrome] Chronic Other circulatory disease (4 sources) Orthostatic hypotension; Translations: [Orthostatic hypotension] Episodic Other diseases of veins and lymphatics (4 sources) Chronic venous hypertension (idiopathic) with ulcer of unspecified lower extremity; Translations: [Chronic venous hypertension (idiopathic) with ulcer of unspecified lower extremity] Onset: 02-14-2016 Chronic Other diseases of veins and lymphatics (20 sources) Peripheral venous insufficiency; Translations: [Venous insufficiency (chronic) (peripheral)] Onset: 01-28-2016 01-19-2024 Episodic Other diseases of veins and lymphatics (10 sources) Venous insufficiency (chronic) (peripheral); Translations: [Venous (peripheral) insufficiency, unspecified] Episodic Other female genital disorders (4 sources) Abnormal uterine bleeding; Translations: [Abnormal uterine and vaginal bleeding, unspecified] Onset: 12-03-2013 Chronic Other gastrointestinal disorders (4 sources) Irritable bowel syndrome; Translations: [Irritable bowel syndrome] Chronic Other hereditary and degenerative nervous system conditions (2 sources) Impaired cognition; Translations: [Mild cognitive impairment, so stated] 06-09-2024 Chronic Other hereditary and degenerative nervous system conditions (1 source) Mild cognitive impairment, so stated; Translations: [Mild cognitive impairment, so stated] 06-09-2024 Chronic Other inflammatory condition of skin (12 sources) Lichen simplex chronicus; Translations: [Lichen simplex chronicus] 01-19-2024 Episodic Other injuries and conditions due to external causes (4 sources) History of fall; Translations: [History of falling] Episodic Other lower respiratory disease (12 sources) Nodule of lung; Translations: [Solitary pulmonary nodule] 01-19-2024 Episodic Other lower respiratory disease (4 sources) Solitary nodule of lung; Translations: [Solitary pulmonary nodule] Episodic Other nutritional; endocrine; and metabolic disorders (8 sources) Obesity; Translations: [Obesity, unspecified] 01-23-2024 Chronic Other nutritional; endocrine; and metabolic disorders (7 sources) Hypercalcemia; Translations: [Hypercalcemia] Resolved: 11-29-2021 01-25-2024 [...] nutritional; endocrine; and metabolic disorders (6 sources) Obesity, unspecified; Translations: [Obesity, unspecified] 01-23-2024 Chronic Other screening for suspected conditions (not mental disorders or infectious disease) (12 sources) Encounter for screening mammogram for malignant [...] limb] Onset: 12-06-2014 Episodic Residual codes; unclassified (20 sources) Obstructive sleep apnea syndrome; Translations: [Obstructive sleep apnea (adult) (pediatric)] Onset: 11-07-2017 01-19-2024 Chronic Residual codes; unclassified (16 sources) Periodic limb movement disorder; Translations: [Periodic limb movement disorder] 01-19-2024 Chronic Residual codes; unclassified (10 sources) Obstructive sleep apnea (adult) (pediatric); Translations: [Obstructive sleep apnea (adult)(pediatric)] Chronic Residual codes; unclassified (4 sources) Postmenopausal state; Translations: [Asymptomatic menopausal state] Episodic Spondylosis; intervertebral disc disorders; other back problems (16 sources) Lumbosacral spondylosis without myelopathy; Translations: [Spondylosis [...] 01-03-2017 Episodic Other aftercare (1 source) Other 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 banking relationship manager (current) drug therapy; Translations: [OTH NURSING HOME CURRENT DRUG THERAPY] Onset: 06-16-2022 Episodic Other [...] Test Name Value Interpretation Reference Range Facility Basophils Auto (Bld) [#/Vol] on 06-11-2024 Basophils (Bld) [#/Vol] 0.1 10 3/uL 0.0-0.1 [facility] Basophils/100 WBC Auto (Bld) on 06-11-2024 Basophils/100 WBC (Bld) 0.9 % 0.2-2.0 [facility] Cholesterol in LDL Calc [Mas s/Vol]on 06-11-2024 Cholesterol in LDL [Mass/Vol] 102.0 mg/dL [facility] Comment on above: <100 mg/dl [id number] 0-129 mg/dl NEAR OR ABOVE [id number] mg/dl BORDERLINE [id number] mg/dl HIGH>190 mg/dl VERY HIGH Cholesterol in VLDL Calc [Ma ss/Vol]on 06-11-2024 Cholesterol in VLDL [Mass/Vol] 22.4 mg/dL [facility] Eosinophils/100 WBC Auto (Bl d)on 06-11-2024 Eosinophils/100 WBC (Bld) 1.4 % 0.9-7.0 [facility] Erythrocyte distribution wid th Auto (RBC) [Ratio]on 06-11-2024 Erythrocyte distribution width (RBC) [Ratio] 13.9 % 11.0-15.0 [facility] Estimated glomerular filtrat ion rate (GFR) non- Americanon 06-11-2024 GFR/1.73 sq M.predicted among non-blacks MDRD (S/P/Bld) [Vol rate/Area] 32 mL/min/{1.73_m2} Low >=60 [facility] Globulin Calc (S) [Mass/Vol] on 06-11-2024 Globulin (S) [Mass/Vol] 3.5 g/dL [facility] Hematocrit Auto (Bld) [Volum e fraction]on 06-11-2024 Hematocrit (Bld) [Volume fraction] 40.0 % 36.0-48.0 [facility] Hemoglobin [Mass/volume] in Bloodon 06-11-2024 Hemoglobin (Bld) [Mass/Vol] 12.7 g/dL 12.0-16.0 [facility] Laboratory - Chemistry and C hemistry - challengeon 06-11-2024 Albumin [Mass/Vol] 3.4 g/dL 3.4-5.0 [facility] ALP [Catalytic activity/Vol] 68 U/L 46-116 [facility] ALT [Catalytic activity/Vol] 20 U/L 14-59 [facility] AST [Catalytic activity/Vol] 16 U/L 15-37 [facility] Bilirubin [Mass/Vol] 0.8 mg/dL 0.2-1.0 [facility] Calcium [Mass/Vol] 9.7 mg/dL 8.5-10.1 [facility] Chloride [Moles/Vol] 105 mmol/L 98-107 [facility] Cholesterol [Mass/Vol] 202 mg/dL High <=200 [facility] Cholesterol in HDL [Mass/Vol] 78 mg/dL High 40-60 [facility] Comment on above: > or =60 mg/dl - LOW CARDIOVASCULAR RISK<40 mg/dl - HIGH CARDIOVASCULAR RISK CO2 [Moles/Vol] 26.9 mmol/L 21.0-32.0 [facility] Cobalamin (Vitamin B12) [Mass/Vol] 566 pg/mL 232-1245 [facility] Comment on above: Performed at: [address] [id number] Director: Juan Cruz PhD, Phone: [phone] Creatinine [Mass/Vol] 1.58 mg/dL High 0.55-1.02 [facility] Ferritin [Mass/Vol] 162.0 ng/mL 8.0-252.0 [facility] GFR/1.73 sq M.predicted MDRD (S/P/Bld) [Vol rate/Area] 39 mL/min/{1.73_m2} Low >=60 [facility] Glucose [Mass/Vol] 101 mg/dL 74-106 [facility] Potassium [Moles/Vol] 4.3 mmol/L 3.5-5.1 [facility] Protein [Mass/Vol] 6.9 g/dL 6.4-8.2 [facility] Sodium [Moles/Vol] 142 mmol/L 136-145 [facility] Triglyceride [Mass/Vol] 112 mg/dL <=150 [facility] TSH Qn 1.919 m[IU]/L 0.358-3.740 [facility] Urea nitrogen [Mass/Vol] 33.0 mg/dL High 7.0-18.0 [facility] Urea nitrogen/Creatini ne [Mass ratio] 20.9 mg/mg [facility] Laboratory - Hematology and Cell countson 06-11-2024 Immature granulocytes/100 WBC (Bld) 0.4 % 0.0-0.5 [facility] Leukocytes [#/volume] correc sariah for nucleated erythrocytes in Blood by Automated counon 06-11-2024 WBC corrected for nucl RBC Auto (Bld) [#/Vol] 5.7 10 3/uL 4.0-11.0 [facility] Lymphocytes Auto (Bld) [#/Vo l]on 06-11-2024 Lymphocytes (Bld) [#/Vol] 1.3 10 3/uL 1.2-3.8 [facility] Lymphocytes/100 WBC Auto (Bl d)on 06-11-2024 Lymphocytes/100 WBC (Bld) 22.9 % 20.5-60.0 [facility] MCH Auto (RBC) [Entitic mass ]on 06-11-2024 MCH (RBC) [Entitic mass] 29.6 pg 26.7-34.0 [facility] MCHC Auto (RBC) [Mass/Vol]on 06-11-2024 MCHC (RBC) [Mass/Vol] 31.8 g/dL 29.9-35.2 [facility] MCV Auto (RBC) [Entitic vol] on 06-11-2024 MCV (RBC) [Entitic vol] 93.2 fL 81.0-99.0 [facility] Monocytes Auto (Bld) [#/Vol] on 06-11-2024 Monocytes (Bld) [#/Vol] 0.5 10 3/uL 0.3-0.8 [facility] Monocytes/100 WBC Auto (Bld) on 06-11-2024 Monocytes/100 WBC (Bld) 8.9 % 1.7-12.0 [facility] Neutrophils Auto (Bld) [#/Vo l]on 06-11-2024 Neutrophils (Bld) [#/Vol] 3.7 10 3/uL 1.4-6.5 [facility] Neutrophils/100 WBC Auto (Bl d)on 06-11-2024 Neutrophils/100 WBC (Bld) 65.5 % 43.0-75.0 [facility] No Panel Informationon 06-11 25-Hydroxy Vitamin D Total 43.2 ng/mL [facility] Comment on above: <20 ng/mL Vit D defi cient20-<30 ng/mL Vit D [id number] ng/mL Vit D sufficient>100 ng/mL Potential Toxicity Eosinophils # (Auto) 0.1 10 3/uL 0.0-0.7 [facility] Folate 10.50 ng/mL 8.60-58.90 [facility] Immature Granulocyte # (Auto) 0.02 10 3/uL 0.00-0.03 [facility] Platelet mean volume Auto (B ld) [Entitic vol]on 06-11-2024 Platelet mean volume (Bld) [Entitic vol] 9.7 fL 9.5-13.5 [facility] Platelets Auto (Bld) [#/Vol] on 06-11-2024 Platelets (Bld) [#/Vol] 167 10 3/uL 150-450 [facility] RBC Auto (Bld) [#/Vol]on RBC (Bld) [#/Vol] 4.29 10 6/uL 4.20-5.[address] [facility] Serum or plasma albumin/glob ulin mass ratioon 06-11-2024 Albumin/Globulin [Mass ratio] 1.0 {ratio} [facility] Serum or plasma anion gap de terminationon 06-11-2024 Anion gap [Moles/Vol] 14.4 mmol/L [facility] Serum or plasma methylmalona te measurement (moles/volume)on 06-11-2024 Methylmalonate [Moles/Vol] 270 nmol/L 0-378 [facility] Comment on above: This test was develo ped and its performance characteristicsdetermined by [employer]. It has not been cleared orapproved by the Food and Drug Administration.Performed at: [facility] [id number] Director: Brook Harvey MD, Phone: [phone] Serum or plasma total choles terol/high density lipoprotein (HDL) cholesterol mass samm 06-11-2024 Cholesterol.total /Cholesterol in HDL [Mass ratio] 2.6 {ratio} [facility] Comment on above: 3.3 - 4.4 LOW RISK4. 4 - 7.1 AVERAGE RISK7.1 - 11.0 MODERATE RISK>11.0 HIGH RISK Estimated glomerular filtrat ion rate (GFR) non- Americanon 04-03-2024 GFR/1.73 sq M.predicted among non-blacks MDRD (S/P/Bld) [Vol rate/Area] 31 mL/min/{1.73_m2} Low >=60 [facility] Laboratory - Chemistry and C hemistry - challengeon 04-03-2024 Calcium [Mass/Vol] 9.7 mg/dL 8.5-10.1 [facility] Chloride [Moles/Vol] 102 mmol/L 98-107 [facility] CO2 [Moles/Vol] 34.2 mmol/L High 21.0-32.0 [facility] Creatinine [Mass/Vol] 1.63 mg/dL High 0.55-1.02 [facility] GFR/1.73 sq M.predicted MDRD (S/P/Bld) [Vol rate/Area] 38 mL/min/{1.73_m2} Low >=60 [facility] Glucose [Mass/Vol] 127 mg/dL High 74-106 [facility] Potassium [Moles/Vol] 4.0 mmol/L 3.5-5.1 [facility] Sodium [Moles/Vol] 139 mmol/L 136-145 [facility] Urea nitrogen [Mass/Vol] 40.0 mg/dL High 7.0-18.0 [facility] Urea nitrogen/Creatini ne [Mass ratio] 24.5 mg/mg [facility] Serum or plasma anion gap de terminationon 04-03-2024 Anion gap [Moles/Vol] 6.8 mmol/L [facility] Estimated glomerular filtrat ion rate (GFR) non- Americanon 01-25-2024 GFR/1.73 sq M.predicted among non-blacks MDRD (S/P/Bld) [Vol rate/Area] 42 mL/min/{1.73_m2} >=60 [facility] - Chemistry and C hemistry - challengeon 01-25-2024 Calcium [Mass/Vol] 10.2 mg/dL 8.5-10.1 [facility] Chloride [Moles/Vol] 106 mmol/L 98-107 [facility] CO2 [Moles/Vol] 28.3 mmol/L 21.0-32.0 [facility] Creatinine [Mass/Vol] 1.25 mg/dL 0.55-1.02 [facility] GFR/1.73 sq M.predicted MDRD (S/P/Bld) [Vol rate/Area] 51 mL/min/{1.73_m2} >=60 [facility] Glucose [Mass/Vol] 83 mg/dL 74-106 [facility] Potassium [Moles/Vol] 4.7 mmol/L 3.5-5.1 [facility] Sodium [Moles/Vol] 141 mmol/L 136-145 [facility] Urea nitrogen [Mass/Vol] 31.0 mg/dL 7.0-18.0 [facility] Urea nitrogen/Creatini ne [Mass ratio] 24.8 mg/mg [facility] Serum or plasma anion gap de terminationon 01-25-2024 Anion gap [Moles/Vol] 11.4 mmol/L [facility] SARS-CoV-2 (COVID-19) RNA NA A+probe Ql (Resp)on 06-17-2022 SARS-CoV-2 (COVID-19) RNA MARLON+probe Ql (Unsp spec) Negative [employer] Other CBC AUTO DIFFon 06-15-2022 BASO # 0.0 103/ul Normal 0.0-0.1 [facility] Comment on above: Performed By: #### C BC #### [facility] [address] [place] [address] Dr. Perez Jaimes Basophils/100 WBC (Bld) 0.5 % Normal 0.2-2.0 [facility] Comment on above: Performed By: #### C BC #### [facility] [address] [place] [address] Dr. Perez Jaimes EO # 0.1 103/ul Normal 0.0-0.7 [facility] Comment on above: Performed By: #### C BC #### [facility] [address] [place] [address] Dr. Perez Jaimes Eosinophils/100 WBC (Bld) 1.1 % Normal 0.9-7.0 [facility] Comment on above: Performed By: #### C BC #### [facility] [address] [place] [address] Dr. Perez Jaimes Erythrocyte distribution width (RBC) [Ratio] 12.6 % Normal 11.0-15.0 [facility] Comment on above: Performed By: #### C BC #### [facility] [address] [place] [address] Dr. Perez Jaimes Hematocrit (Bld) [Volume fraction] 41.3 % Normal 36.0-48.0 [facility] Comment on above: Performed By: #### C BC #### [facility] [address] [place] [address] Dr. Perez Jaimes Hemoglobin (Bld) [Mass/Vol] 12.9 g/dL Normal 12.0-16.0 [facility] Comment on above: Performed By: #### C BC #### [facility] [address] [place] [address] Dr. Perez Jaimes IG # 0.02 10e3/ul Normal 0.00-0.03 [facility] Comment on above: Performed By: #### C BC #### [facility] [address] [place] [address] Dr. Perez Jaimes IG % 0.3 % Normal 0.0-0.5 [facility] Comment on above: Performed By: #### C BC #### [facility] [address] [place] [address] Dr. Perez Jaimes LYMPH # 1.3 103/ul Normal 1.2-3.8 [facility] Comment on above: Performed By: #### C BC #### [facility] [address] [place] [address] Dr. Perez Jaimes Lymphocytes/100 WBC (Bld) 20.2 % Critically low 20.5-60.0 [facility] Comment on above: Performed By: #### C BC #### [facility] [address] [place] [address] Dr. Perez Jaimes MANUAL DIFF REQ NO Normal [facility] Comment on above: Performed By: #### C BC #### [facility] [address] [place] [address] Dr. Perez Jaimes MCH (RBC) [Entitic mass] 29.5 pg Normal 26.7-34.0 [facility] Comment on above: Performed By: #### C BC #### [facility] [address] [place] [address] Dr. Perez Jaimes MCHC (RBC) [Mass/Vol] 31.2 g/dL Normal 29.9-35.2 [facility] Comment on above: Performed By: #### C BC #### [facility] [address] [place] [address] Dr. Perez Jaimes MCV (RBC) [Entitic vol] 94.5 fL Normal 81.0-99.0 [facility] Comment on above: Performed By: #### C BC #### [facility] [address] [address] [address] Perez Jaimes MONO # 0.5 103/ul Normal 0.3-0.8 [facility] Comment on above: Performed By: #### C BC #### [facility] [address] [address] [address] Perez Jaimes Monocytes/100 WBC (Bld) 8.7 % Normal 1.7-12.0 [facility] Comment on above: Performed By: #### C BC #### [facility] [address] [address] [address] Perez Jaimes NEUT # 4.3 103/ul Normal 1.4-6.5 [facility] Comment on above: Performed By: #### C BC #### [facility] [address] [place] [address] Dr. Perez Jaimes Neutrophils/100 WBC (Bld) 69.2 % Normal 43.0-75.0 [facility] Comment on above: Performed By: #### C BC #### [facility] [address] [place] [address] Dr. Perez Jaimes Platelet mean volume (Bld) [Entitic vol] 9.6 fL Normal 9.5-13.5 [facility] Comment on above: Performed By: #### C BC #### [facility] [address] [place] [address] Dr. Perez Jaimes PLT 178 103/ul Normal 150-450 [facility] Comment on above: Performed By: #### C BC #### [facility] [address] [place] [address] Dr. Perez Jaimes RBC 4.37 106/ul Normal 4.20-5.40 [facility] Comment on above: Performed By: #### C BC #### [facility] [address] [place] [address] Dr. Perez Jaimes WBC 6.2 103/ul Normal 4.0-11.0 [facility] Comment on above: Performed By: #### C BC #### [facility] [address] [address] [address] Perez Jaimes LIPID PROFILEon 06-15-2022 CHOL-HDL RATIO NORM SEE BELOW Normal [facility] Comment on above: Result Comment: 3.3 - 4.4 LOW RISK 4.4 - 7.1 AVERAGE RISK 7.1 - 11.0 MODERATE RISK >11.0 HIGH RISK Performed By: #### B MP, LIPID #### [facility] [address] [address] [address] Perez Jaimes Cholesterol [Mass/Vol] 214 mg/dL Critically high <=200 [facility] Comment on above: Performed By: #### B MP, LIPID #### [facility] [address] [place] [address] Dr. Perez Jaimes Cholesterol in HDL [Mass/Vol] 70 mg/dL Critically high 40-60 [facility] Comment on above: Performed By: #### B MP, LIPID #### [facility] [address] [place] [address] Dr. Perez Jaimes Cholesterol in LDL [Mass/Vol] 109.4 mg/dL Normal [facility] Comment on above: Performed By: #### B MP, LIPID #### [facility] [address] [place] [address] Dr. Perez Jaimes Cholesterol.total /Cholesterol in HDL [Mass ratio] 3.1 {ratio} Normal [facility] Comment on above: Performed By: #### B MP, LIPID #### [facility] [address] [place] [address] Dr. Perez Jaimes HDL NORMAL > or = 60 mg/dl - LO W CARDIOVASCULAR RISK <40 mg/dl - HIGH CARDIOVASCULAR RISK Normal [facility] Comment on above: Performed By: #### B MP, LIPID #### [facility] [address] [place] [address] Dr. Perez Jaimes LDL CALC NORMAL SEE BELOW Normal [facility] Comment on above: Result Comment: <100 mg/dl OPTIMAL 100 - 129 mg/dl NEAR OR ABOVE OPTIMAL 130 - 159 mg/dl BORDERLINE HIGH 160 - 189 mg/dl HIGH >190 mg/dl VERY HIGH Performed By: #### B MP, LIPID #### [facility] [address] [address] [address] Perez Jaimes Triglyceride [Mass/Vol] 173 mg/dL Critically high <=150 [facility] Comment on above: Performed By: #### B MP, LIPID #### [facility] [address] [address] [address] Perez Jaimes VLDL CALC 34.6 mg/dL Normal [facility] Comment on above: Performed By: #### B MP, LIPID #### [facility] [address] [place] [address] Dr. Perez Jaimes PROF CHEM 8 (BAS METB)on Anion gap [Moles/Vol] 12.6 mmol/L Normal [facility] Comment on above: Performed By: #### B MP, LIPID #### [facility] [address] [place] [address] Dr. Perez Jaimes Calcium [Mass/Vol] 9.7 mg/dL Normal 8.5-10.1 [facility] Comment on above: Performed By: #### B MP, LIPID #### [facility] [address] [place] [address] Dr. Perez Jaimes Chloride [Moles/Vol] 103 mmol/L Normal 98-107 [facility] Comment on above: Performed By: #### B MP, LIPID #### [facility] [address] [place] [address] Dr. Perez Jaimes CO2 [Moles/Vol] 27.0 mmol/L Normal 21.0-32.0 [facility] Comment on above: Performed By: #### B MP, LIPID #### [facility] [address] [place] [address] Dr. Perez Jaimes Creatinine [Mass/Vol] 1.32 mg/dL Critically high 0.55-1.02 [facility] Comment on above: Performed By: #### B MP, LIPID #### [facility] [address] [place] [address] Dr. Perez Jaimes EGFR-AF CENTRAL AFRICAN 48 mL/min/1.73m2 Critically low >=60 [facility] Comment on above: Performed By: #### B MP, LIPID #### [facility] [address] [address] [address] Perez Jaimes EGFR-NON AF CENTRAL AFRICAN 40 mL/min/1.73m2 Critically low >=60 [facility] Comment on above: Performed By: #### B MP, LIPID #### [facility] [address] [address] [address] Perez Jaimes Glucose [Mass/Vol] 99 mg/dL Normal 74-106 [facility] Comment on above: Performed By: #### B MP, LIPID #### [facility] [address] [address] [address] Perez Jaimes Potassium [Moles/Vol] 4.6 mmol/L Normal 3.5-5.1 [facility] Comment on above: Performed By: #### B MP, LIPID #### [facility] [address] [address] [address] Perez Jaimes Sodium [Moles/Vol] 138 mmol/L Normal 136-145 [facility] Comment on above: Performed By: #### B MP, LIPID #### [facility] [address] [address] [address] Perez Jaimes Urea nitrogen [Mass/Vol] 31.0 mg/dL Critically high 7.0-18.0 [facility] Comment on above: Performed By: #### B MP, LIPID #### [facility] [address] [address] [address] Perez Jaimes Urea nitrogen/Creatini ne [Mass ratio] 23.5 mg/mg Normal [facility] Comment on above: Performed By: #### B MP, LIPID #### [facility] [address] [address] [address] Perez Jaimes MG MAMM SCREEN 3D WAI CADon 06-14-2022 MG MAMM SCREEN 3D WAI CAD Patient: SHITAL HIRSCHDemetra Exam Date: 06/14/2022 : 1950 Gender:F Ordering : DR SHAWN HIRSCH D.O. Admission #: [id number] Family : Order #: [id number] CLICK HERE TO VIEW EXAM RADIOLOGY REPORT [...] uterine cancer at age 65. LOCATION: [facility] BREAST COMPOSITION: Scattered areas fibroglandular density. [...] MD on 06/14/2022 at 12:41 Normal [facility] Vital Signs Date Time Vital Sign Value Performing Clinician Facility 06-09-2024 11:28-0400 Body height 154.94 cm [facility] 06-09-2024 11:28-0400 Body mass index (BMI) [Ratio] 36.4 kg/m2 [facility] 06-09-2024 11:28-0400 Body weight 87.54 kg [facility] 06-09-2024 11:28-0400 Diastolic blood pressure 72 mm[Hg] [facility] 06-09-2024 11:28-0400 Heart rate 63 /min [facility] 06-09-2024 11:28-0400 SaO2% (BldA) [Mass fraction] 97 % [facility] 06-09-2024 11:28-0400 Systolic blood pressure 128 mm[Hg] [facility] 04-21-2024 15:46-0400 Body height 154.94 cm [facility] 04-21-2024 15:46-0400 Body mass index (BMI) [Ratio] 36.3 kg/m2 [facility] 04-21-2024 15:46-0400 Body weight 87.25 kg [facility] 04-21-2024 15:46-0400 Diastolic blood pressure 64 mm[Hg] [facility] 04-21-2024 15:46-0400 Heart rate 76 /min [facility] 04-21-2024 15:46-0400 Respiratory rate 12 /min [facility] 04-21-2024 15:46-0400 Systolic blood pressure 109 mm[Hg] [facility] 03-27-2024 16:15-0400 Body height 154.94 cm [facility] 03-27-2024 16:15-0400 Body mass index (BMI) [Ratio] 38.6 kg/m2 [facility] 03-27-2024 16:15-0400 Body weight 92.75 kg [facility] 03-27-2024 16:15-0400 Diastolic blood pressure 76 mm[Hg] [facility] 03-27-2024 16:15-0400 Heart rate 72 /min [facility] 03-27-2024 16:15-0400 Respiratory rate 20 /min [facility] 03-27-2024 16:15-0400 Systolic blood pressure 152 mm[Hg] [facility] 01-23-2024 10:14-0400 Body height 154.94 cm [facility] 01-23-2024 10:14-0400 Body mass index (BMI) [Ratio] 35.3 kg/m2 [facility] 01-23-2024 10:14-0400 Body weight 84.87 kg [facility] 01-23-2024 10:14-0400 Diastolic blood pressure 78 mm[Hg] [facility] 01-23-2024 10:14-0400 Heart rate 62 /min [facility] 01-23-2024 10:14-0400 Respiratory rate 12 /min [facility] 01-23-2024 10:14-0400 Systolic blood pressure 150 mm[Hg] [facility] 10-24-2023 10:00-0500 Body height 154.94 cm Sahwn Ball Other [employer] Other 10-24-2023 10:00-0500 Body mass index (BMI) [Ratio] 36.2 kg/m2 [employer] Other [employer] Other 10-24-2023 10:00-0500 Body weight 86.91 kg Shawn [employer] Other [employer] Other 10-24-2023 10:00-0500 Diastolic blood pressure 80 mm[Hg] [facility] [employer] Other [employer] Other 10-24-2023 10:00-0500 Respiratory rate 12 /min [employer] Other [employer] Other 10-24-2023 10:00-0500 Systolic blood pressure 139 mm[Hg] [employer] Other [employer] Other Encounters Encounter Date Encounter Type Care Provider Facility Start: 06-24-2024 End: 06-24-2024 ambulatory [facility] Work Phone: Start: 06-24-2024 End: 06-24-2024 Patient encounter procedure [facility] Physician [facility] Work Phone: Start: 06-11-2024 Non-patient / Non-visit [facility] Physician [facility] [employer] Work Phone: Start: 06-09-2024 End: 06-09-2024 ambulatory [facility] Work Phone: Start: 06-09-2024 End: 06-09-2024 Patient encounter procedure [facility] Work Phone: Start: 05-22-2024 End: 05-22-2024 ambulatory ISABEL NGUYEN Not Available Start: 04-21-2024 End: 04-21-2024 Patient encounter procedure [facility] Work Phone: Start: 04-03-2024 Non-patient / [facility]visit [facility] Work Phone: Start: 03-27-2024 End: 03-27-2024 ambulatory [facility] Work Phone: Start: 03-27-2024 End: 03-27-2024 Patient encounter procedure [facility] Work Phone: Start: 03-06-2024 End: 03-06-2024 ambulatory ISABEL NGUYEN Not Available Start: 01-25-2024 Non-patient / Non-visit [facility] Physician [facility] Work Phone: Start: 01-23-2024 End: 01-23-2024 ambulatory [facility] Work Phone: Start: 01-23-2024 End: 01-23-2024 Patient encounter procedure [facility] Physician [facility] Work Phone: Start: 12-27-2023 End: 12-27-2023 ambulatory ISABEL NGUYEN Not Available Start: 10-24-2023 End: 10-24-2023 ambulatory Shawn Ball Other [employer] Other Start: 10-24-2023 Office outpatient vi sit 25 minutes Shawn Ball [facility] Start: 10-09-2023 End: 10-09-2023 ambulatory Shawn Ball Other [employer] Other Start: 10-09-2023 Telephone encounter Shawn Ball [facility] Start: 06-21-2023 End: 06-21-2023 ambulatory Shawn Ball Other [employer] Other Start: 06-21-2023 Telephone encounter Shawn Ball [facility] Start: 06-19-2023 End: 06-19-2023 ambulatory Shawn Ball Other [employer] Other Start: 06-19-2023 Nursing evaluation o f patient and report Shawn Hirsch [facility] Start: 05-28-2023 End: 05-28-2023 ambulatory Shawn Hirsch Other [employer] Other Start: 05-28-2023 Telephone encounter Shawn Vince [facility] Start: 02-12-2023 End: 03-14-2023 ambulatory ADHIKARI H [facility] Facility:[facility] Start: 01-15-2023 End: 02-09-2023 ambulatory ADHIKARI H FAWWAD Facility:[facility] Start: 01-08-2023 End: 01-08-2023 ambulatory Shawn Hirsch Other [employer] Other Start: 01-08-2023 Telephone encounter Shawn Vince [facility] Start: 12-13-2022 End: 01-12-2023 ambulatory ADHIKARI H FAWWAD Facility:[facility] Start: 11-15-2022 End: 12-13-2022 ambulatory ADHIKARI H FAWWAD Facility:[facility] Start: 10-16-2022 End: 11-14-2022 ambulatory ADHIKARI H FAWWAD Facility:[facility] Start: 09-14-2022 End: 10-15-2022 ambulatory ADHIKARI H FAWWAD Facility:[facility] Start: 08-15-2022 End: 09-13-2022 ambulatory ADHIKARI H FAWWAD Facility:[facility] Start: 07-26-2022 End: 08-14-[address] SHAWN HIRSCH Facility:[facility] Start: 06-17-2022 End: 06-17-2022 ambulatory Shama Nice Other [employer] Other Start: 06-17-2022 Nursing evaluation o f patient and report [facility]ama Nice [facility] Start: 06-15-2022 End: 06-16-[address] SHAWN HIRSCH Facility:[facility] Start: 06-15-2022 End: 07-15-2022 ambulatory ADHIKARI H FAWWAD Facility:[facility] Start: 06-14-2022 End: 06-15-[address] SHAWN HIRSCH Facility:[facility] Start: 05-23-2022 Adult health examination Vasquez Hirsch Other [employer] Other Start: 05-15-2022 End: 06-14-2022 ambulatory SHAIKH Graciela SMITH Facility:[facility] Start: 04-19-2022 End: 05-12-2022 ambulatory SHAIKH Graciela SMITH Facility:[facility] Start: 04-14-2022 End: 04-15-2022 ambulatory SHAIKH Graciela SMITH Facility:[facility] Start: 03-30-2020 Gynecological examin ation normal Shawn Hirsch Other [employer] Other Procedures Date Procedure Procedure Detail Performing [...] lic 2000 panel - Serum or Plasma [facility] enter MR Brain WO contrast [facility] Immunizations Immunization Date Immunization Notes Care Provider Fa cility 06-24-2024 influenza, high dose seasonal, preservative-free [facility] 06-19-2023 influenza, high dose seasonal, preservative-free Shawn Hirsch Other [employer] Other 06-19-2023 influenza virus vaccine, unspecified formulation [facility] 07-26-2022 influenza virus vaccine, split virus (incl. purified surface antigen) Shawn Hirsch Other [facility] [employer] Other 07-25-2022 influenza virus vaccine, unspecified formulation [facility] 07-25-2022 influenza, high dose seasonal, preservative-free Shawn Hirsch Other [facility] [employer] Other 08-08-2021 influenza virus vaccine, split virus (incl. purified surface antigen) Shawn Vince Other [facility] [employer] Other 08-08-2021 influenza virus vaccine, unspecified formulation [facility] 01-12-2021 COVID-19 Vaccine Pfi zer - Documentation Purposes Only Shawn Vince Other [facility] 07-06-2020 influenza virus vaccine, split virus (incl. purified surface antigen) Shawn Vince Other [facility] [employer] Other 07-06-2020 influenza virus vaccine, unspecified formulation [facility] 07-29-2019 influenza virus vaccine, split virus (incl. purified surface antigen) Shawn Vince Other [facility] [employer] Other 07-29-2019 influenza virus vaccine, unspecified formulation [facility] 07-09-2018 influenza virus vaccine, split virus (incl. purified surface antigen) Shawn Vince Other [facility] [employer] Other 07-09-2018 influenza virus vaccine, unspecified formulation [facility] 04-03-2018 influenza virus vaccine, split virus (incl. purified surface antigen) Shawn Vince Other [facility] [employer] Other 04-03-2018 influenza virus vaccine, unspecified formulation [facility] 01-11-2018 pneumococcal Conjuga te, unspecified formulation; Translations: [Need for prophylactic vaccination against Streptococcus pneumoniae (pneumococcus)] Shawn Hirsch Other [facility] [employer] Other 01-11-2018 pneumococcal polysaccharide vaccine, 23 valent Shawn Hirsch Other [facility] 08-03-2017 influenza virus vaccine, split virus (incl. purified surface antigen) Shawn Hirsch Other [facility] [employer] Other 08-03-2017 influenza virus vaccine, unspecified formulation [facility] 01-03-2017 pneumococcal conjuga te vaccine, 13 valent Shawn Hirsch Other [facility] 09-27-2016 influenza virus vaccine, split virus (incl. purified surface antigen) Shawn Hirsch Other [employer] Other 09-27-2016 influenza virus vaccine, unspecified formulation [facility] 07-23-2015 tetanus and diphther ia toxoids, adsorbed, preservative free, for adult use (5 Lf of tetanus toxoid and 2 Lf of diphtheria toxoid) Shawn Hirsch Other [facility] 07-30-2013 tetanus and diphther ia toxoids, adsorbed, preservative free, for adult use (5 Lf of tetanus toxoid and 2 Lf of diphtheria toxoid) Shawn Hirsch Other [facility] Payers Date Payer Category Payer Unknown [id number] 1958 Medicaid [id number] . [id number] 1958 Medicare [id number] 1950 Unknown [id number] 2.16.84 [id number] 1950 Unknown [id number] 2.16.84 0.1.181657.3.579.2.593 1950 Unknown [id number] 2.16.84 0.1.974590.3.579.2.593 1950 Unknown [id number] 2.16.84 0.1.219205.3.579.2.593 1950 Unknown [id number] 2.16.84 0.1.421128.3.579.2.593 1950 Unknown [id number] 2.16.84 0.1.305362.3.579.2.593 1950 Unknown [id number] 2.16.84 0.1.093213.3.579.2.593 1950 Unknown [id number] 2.16.84 0.1.151907.3.579.2.593 1950 Unknown [id number] 2.16.84 0.1.027254.3.579.2.593 1950 Unknown [id number] 2.16.84 0.1.248760.3.579.2.593 1950 Unknown [id number] 2.16.84 0.1.000341.3.579.2.593 1950 Unknown [id number] 2.16.84 0.1.689492.3.579.2.593 1950 Unknown [id number] 2.16.84 0.1.245660.3.579.2.593 1950 Unknown [id number] 2.16.84 0.1.776390.3.579.2.593 1950 Unknown [id number] 2.16.84 0.1.120998.3.579.2.1259 1950 Unknown [id number] 2.16.84 0.1.092202.3.579.2.1259 1950 Unknown [id number] 2.16.84 0.1.938557.3.579.2.1259 Medicare [id number] 2.1 [id number] Social History Date Type Detail Facility Sex Assigned At [employer] Other Start: 01-23-2024 End: 06-24-2024 Tobacco smoking status NHIS Never smoked tobacco (finding) [facility] Start: 1950 Sex Assigned At Female F [facility] Clinical Notes 06-17-2022 to 10-24-2023 Note Date & Type Note Facility [...] are maintaining 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 No bleeding complications Oct, Raynaud's phenomenon without [...] use, the patient reduces the risk for MS, CVA, HTN, cardiac dysrhythmias and sudden cardiac [...] exercise for 30 minutes, 3-5 times weekly. 10 Jh, 2024 Body mass index [BMI] 37.0-37.9, adult (ICD-10 - Z68.37) Oct, ERIS (generalized anxiety disorder) (ICD-10 - F41.1) Healthy diet and keep active. Spends time daily w/ sister and disabled nephew. [employer] Other 09-07-2023 Evaluation note* Encounter Date Diagnosis Assessment Notes Treatment Notes Treatment Clinical Notes Jun, Primary hypertension (ICD-10 - I10) [employer] Other 08-14-2023 Evaluation note* Encounter Date Diagnosis Assessment Notes Treatment Notes Treatment Clinical Notes May, Primary hypertension (ICD-10 - I10) [employer] Other 09-03-2022 Evaluation note* Encounter Date Diagnosis Assessment Notes Treatment Notes Treatment Clinical Notes Jun, Contact with and (suspected) exposure to covid-19 (ICD-10 - Z20.822) [employer] [facility] Other Evaluation note* Diagnosis Onset Date Resolution Status Chronic venous insufficiency acute ERIS (generalized anxiety disorder) acute Obesity acute GERARD (obstructive sleep apnea) acute Paroxysmal atrial fibrillation acute Pure hypercholesterolemia ac [place] Raynaud's phenomenon without gangrene acute Stage 3b chronic kidney disease acute [facility] Work Phone: Evaluation note* Diagnosis Onset Date Resolution Status Chronic venous insufficiency acute ERIS (generalized anxiety disorder) acute Obesity acute GERARD (obstructive sleep apnea) acute Paroxysmal atrial fibrillation acute Pure hypercholesterolemia ac [place] Raynaud's phenomenon without gangrene acute Stage 3b chronic kidney disease acute Chronic venous insufficiency acute GERARD (obstructive sleep apnea) acute Paroxysmal atrial fibrillation acute Raynaud's phenomenon without gangrene acute Stage 3b chronic kidney disease acute [facility] Work Phone: Evaluation note* Diagnosis Onset Date Resolution Status Chronic venous insufficiency acute Essential hypertension acute [...] kidney disease acute Encounter for subsequent [facility] wellness visit in Medicare patient noneactive [facility] Work Phone: Evaluation note* Diagnosis Onset Date Resolution Status Chronic venous insufficiency acute Essential hypertension acute GERARD (obstructive sleep apnea) acute Paroxysmal atrial fibrillation acute Raynaud's phenomenon without gangrene acute Stage 3b chronic kidney disease acute Chronic venous insufficiency acute Essential hypertension acute Obesity acute GERARD (obstructive sleep apnea) acute Paroxysmal atrial fibrillation acute Raynaud's phenomenon without gangrene acute Stage 3b chronic kidney disease acute Chronic venous insufficiency acute Essential hypertension acute Mild cognitive impairment ac [place] Obesity acute GERARD (obstructive sleep apnea) acute Paroxysmal atrial fibrillation acute Raynaud's phenomenon without gangrene acute Screening mammogram for breast cancer acute Stage 3b chronic kidney disease acute Medicare annual wellness visit, subsequent noneactive [facility] Work Phone: History general Narrative - Reported* Type Description Date Medical History CVA in 2011 Medical History hypertension Medical History blood clot in leg and lung in 20 12 Surgical History ankle fracture repair 1997 Surgical History cholecystectomy 1996 Surgical History D&C 2010 Hospitalization History see above surgical [employer] Other History general Narrative - Reported* Type Description Date Medical History CVA in 2011 Medical History hypertension Medical History blood clot in leg and lung in 20 12 Medical History Glaucoma Medical History Hypertensive CKD (chronic kidney disease) Medical History Pure hypercholesterolemia Medical [...] D&C 2009 Hospitalization History see above surgical [employer] Other Summary Purpose Family History Relationship Condition [...] Advance Directives No November 07, 2023 2:32pm Advance Directive Response Recorded Date/ Time Advance Directives No June 11:36am Chief Complaint and Reason for Visit Chief [...] subsequent annual wellness visit in Medicare patient Chief Complaint leg swelling 2 week Medicare Wellness flu shot Reason for Visit Chronic venous insuf ficiency Essential hypertension GERARD (obstructive sleep apnea) Paroxysmal atrial fibrillation Raynaud's phenomenon without gangrene Stage 3b chronic kidney disease Chronic venous insufficiency Essential hypertension Obesity GERARD (obstructive sleep apnea) Paroxysmal atrial fibrillation Raynaud's phenomenon without gangrene Stage 3b chronic kidney disease Chronic venous insufficiency Essential hypertension Mild cognitive impairment Obesity GERARD (obstructive sleep apnea) Paroxysmal atrial fibrillation Raynaud's phenomenon without gangrene Screening mammogram for breast cancer Stage 3b chronic kidney disease Medicare annual wellness visit, subsequent Additional Source Comments REASON FOR VISIT (unrecogniz ed section and content) WHITE EQUINXO, CO VID EXPOSU REsmall red spotNot NeededNo InformationNo InformationRefillflu shotNo InformationERRORCheck Up INFORMATION SOURCE (unrecogn ized section and content) DATE CREATED AUTHOR 03/23/2023 [facility] DATE CREATED AUTHOR 'Aliza MANUEL 05/24/2024 [facility] EPIC Care Teams (unrecognized [...] June 09, 2024 End: June 09, 2024 Team Status: Active Member Role Status Dates Shawn Hirsch , DO Primary Care Provide r, Attending Provider Active Start: June 11, 2024 Team Status: Inactive Member Role Status Dates Shawn Hirsch , DO Primary Care Provide r, Attending Provider Active Start: June 24, 2024 End: June 24, 2024 Goals (unrecognized section and content) Goals [...] BE BASED ON THE PRIMARY CLINICAL RECORDS. [facility] [employer] [facility]. provides no warranty or guarantee of the accuracy or completeness of information in this document.
== END 2024-06-26 09:45 | disposition home or self-care (01) ==
LOC: MRI 09:44
PROVIDERS: PCP Internal Medicine; Visit Provider Internal Medicine
DX: S82.841D Displaced bimalleolar fracture of right lower leg, subsequent encounter for closed fracture with routine healing (principal); G31.84 Mild cognitive impairment of uncertain or unknown etiology; N18.32 Chronic kidney disease, stage 3b; I48.0 Paroxysmal atrial fibrillation; I12.9 Hypertensive chronic kidney disease with stage 1 through stage 4 chronic kidney disease, or unspecified chronic kidney disease
CPT/HCPCS: 73620

== ENCOUNTER 2024-06-27 10:44 | Outpatient (OUT) | payer MEDICARE, SELFPAY ==
--- NOTE | 2024-06-27 | MR_ITS ---
[address] [id number] Patient Name: TA HIRSCH MRN: [id number] date: 1950 Sex: F Assigned Patient Location: MRI Current Patient Location: MRI Accession/Order Number: [id number] Exam Date: 06/27/2024 10:55 Report Date: 06/27/2024 14:38 At the request of: HAYDEN TORREY Procedure: MR head/brain wo con EXAM: MR head/brain wo con HISTORY: Mild cognitive impairment COMPARISON: CT brain 01/31/2021 TECHNIQUE: MRI of the brain was performed without contrast. FINDINGS: There is no restricted diffusion to suggest acute infarct. There is no midline shift, mass effect, or abnormal extraaxial fluid collections. There is mild generalized parenchymal volume loss. There is nonspecific mild T2/FLAIR signal abnormality in the subcortical and periventricular white matter, likely reflect chronic microvascular ischemic changes. The major intracranial flow voids are visualized. The cerebellar tonsils are normal in position. The orbits are unremarkable. There is status post bilateral lens replacement. The paranasal sinuses show no air-fluid level. The mastoid air cells are clear. The calvarium and extracranial soft tissues are unremarkable. MR/MR head/brain wo con IMPRESSION: No acute intracranial abnormality. Mild chronic microvascular ischemic and involutional changes Electronically authenticated by: LUARA CHAMPAGNE Date: 06/27/2024 14:38
--- OUTSIDE RECORDS SUMMARY | 2024-06-27 10:54 | XMS_ITS | CCD ---
Author Organization [facility] Care Team Providers Care Kennel Technician Name Role Phone Shama Nice Unavailable Shawn Hirsch Unavailable FAWWAD, ADHIKARI H Attending Unavailable FAWWAD, ADHIKARI H Admitting Unavailable BALL, DR BLAKE Primary Care Unavailable FAWWAD, ADHIKARI H Attending Unavailable FAWWAD, ADHIKARI H Admitting Unavailable BALL, DR BLAKE Primary Care Unavailable FAWWAD, ADHIKARI H Attending Unavailable FAWWAD, ADHIKAIR H Admitting Unavailable BALL, DR BLAKE Primary [...] Iodine Drug Allergy rash and throat swelling [employer] Other (1 source) Iodine and Iodide Containing Products Drug allergy (disorder) 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; Translations: [ASSISTED CURRNT USE ANTICOAGULANTS] Onset: 03-14-2023 Episodic Other aftercare (4 sources) Long-term current use of drug therapy; Translations: [Other snf (current) drug therapy] Episodic Other circulatory disease [...] 01-03-2017 Episodic Other aftercare (1 source) 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; Translations: [OTH ASSISTED CURRENT DRUG THERAPY] Onset: 06-16-2022 Episodic Other [...] Basophils (Bld) [#/Vol] 0.1 10 3/uL 0.0-0.1 [facility] Basophils/100 WBC Auto (Bld) on 06-11-2024 Basophils/100 WBC (Bld) 0.9 % 0.2-2.0 [facility] Cholesterol in LDL Calc [Mas s/Vol]on 06-11-2024 Cholesterol in LDL [Mass/Vol] 102.0 mg/dL [facility] Comment on above: <100 mg/dl [id number] 0-129 mg/dl NEAR OR ABOVE [id number] mg/dl BORDERLINE [id number] mg/dl HIGH>190 mg/dl VERY HIGH Cholesterol in VLDL Calc [Ma ss/Vol]on 06-11-2024 Cholesterol in VLDL [Mass/Vol] 22.4 mg/dL [facility] Eosinophils/100 WBC Auto (Bl d)on 06-11-2024 Eosinophils/100 WBC (Bld) 1.4 % 0.9-7.0 [facility] Erythrocyte distribution wid th Auto (RBC) [Ratio]on 06-11-2024 Erythrocyte distribution width (RBC) [Ratio] 13.9 % 11.0-15.0 [facility] Estimated glomerular filtrat ion rate (GFR) non- Americanon 06-11-2024 GFR/1.73 sq M.predicted among non-blacks MDRD (S/P/Bld) [Vol rate/Area] 32 mL/min/{1.73_m2} Low >=60 [facility] Globulin Calc (S) [Mass/Vol] on 06-11-2024 Globulin (S) [Mass/Vol] 3.5 g/dL [facility] Hematocrit Auto (Bld) [Volum e fraction]on 06-11-2024 Hematocrit (Bld) [Volume fraction] 40.0 % 36.0-48.0 [facility] Hemoglobin [Mass/volume] in Bloodon 06-11-2024 Hemoglobin (Bld) [Mass/Vol] 12.7 g/dL 12.0-16.0 [facility] Laboratory - Chemistry and C hemistry - challengeon 06-11-2024 Albumin [Mass/Vol] 3.4 g/dL 3.4-5.0 [facility] ALP [Catalytic activity/Vol] 68 U/L 46-116 [facility] ALT [Catalytic activity/Vol] 20 U/L 14-59 [facility] AST [Catalytic activity/Vol] 16 U/L 15-37 [facility] Bilirubin [Mass/Vol] 0.8 mg/dL 0.2-1.0 [facility] Calcium [Mass/Vol] 9.7 mg/dL 8.5-10.1 [facility] Chloride [Moles/Vol] 105 mmol/L 98-107 [facility] Cholesterol [Mass/Vol] 202 mg/dL High <=200 [facility] Cholesterol in HDL [Mass/Vol] 78 mg/dL High 40-60 [facility] Comment on above: > or =60 mg/dl - LOW CARDIOVASCULAR RISK<40 mg/dl - HIGH CARDIOVASCULAR RISK CO2 [Moles/Vol] 26.9 mmol/L 21.0-32.0 [facility] Cobalamin (Vitamin B12) [Mass/Vol] 566 pg/mL 232-1245 [facility] Comment on above: Performed at: [address] [id number] Director: Juan Cruz PhD, Phone: [phone] Creatinine [Mass/Vol] 1.58 mg/dL High 0.55-1.02 [facility] Ferritin [Mass/Vol] 162.0 ng/mL 8.0-252.0 [facility] GFR/1.73 sq M.predicted MDRD (S/P/Bld) [Vol rate/Area] 39 mL/min/{1.73_m2} Low >=60 [facility] Glucose [Mass/Vol] 101 mg/dL 74-106 [facility] Potassium [Moles/Vol] 4.3 mmol/L 3.5-5.1 [facility] Protein [Mass/Vol] 6.9 g/dL 6.4-8.2 [facility] Sodium [Moles/Vol] 142 mmol/L 136-145 [facility] Triglyceride [Mass/Vol] 112 mg/dL <=150 [facility] TSH Qn 1.919 m[IU]/L 0.358-3.740 [facility] Urea nitrogen [Mass/Vol] 33.0 mg/dL High 7.0-18.0 [facility] Urea nitrogen/Creatini ne [Mass ratio] 20.9 mg/mg [facility] Laboratory - Hematology and Cell countson 06-11-2024 Immature granulocytes/100 WBC (Bld) 0.4 % 0.0-0.5 [facility] Leukocytes [#/volume] correc sariah for nucleated erythrocytes in Blood by Automated counon 06-11-2024 WBC corrected for nucl RBC Auto (Bld) [#/Vol] 5.7 10 3/uL 4.0-11.0 [facility] Lymphocytes Auto (Bld) [#/Vo l]on 06-11-2024 Lymphocytes (Bld) [#/Vol] 1.3 10 3/uL 1.2-3.8 [facility] Lymphocytes/100 WBC Auto (Bl d)on 06-11-2024 Lymphocytes/100 WBC (Bld) 22.9 % 20.5-60.0 [facility] MCH Auto (RBC) [Entitic mass ]on 06-11-2024 MCH (RBC) [Entitic mass] 29.6 pg 26.7-34.0 [facility] MCHC Auto (RBC) [Mass/Vol]on 06-11-2024 MCHC (RBC) [Mass/Vol] 31.8 g/dL 29.9-35.2 [facility] MCV Auto (RBC) [Entitic vol] on 06-11-2024 MCV (RBC) [Entitic vol] 93.2 fL 81.0-99.0 [facility] Monocytes Auto (Bld) [#/Vol] on 06-11-2024 Monocytes (Bld) [#/Vol] 0.5 10 3/uL 0.3-0.8 [facility] Monocytes/100 WBC Auto (Bld) on 06-11-2024 Monocytes/100 WBC (Bld) 8.9 % 1.7-12.0 [facility] Neutrophils Auto (Bld) [#/Vo l]on 06-11-2024 Neutrophils (Bld) [#/Vol] 3.7 10 3/uL 1.4-6.5 [facility] Neutrophils/100 WBC Auto (Bl d)on 06-11-2024 Neutrophils/100 WBC (Bld) 65.5 % 43.0-75.0 [facility] No Panel Informationon 06-11 25-Hydroxy Vitamin D Total 43.2 ng/mL [facility] Comment on above: <20 ng/mL Vit D defi cient20-<30 ng/mL Vit D gjeftabtptlq78-580 ng/mL Vit D sufficient>100 ng/mL Potential Toxicity Eosinophils # (Auto) 0.1 10 3/uL 0.0-0.7 [facility] Folate 10.50 ng/mL 8.60-58.90 [facility] Immature Granulocyte # (Auto) 0.02 10 3/uL 0.00-0.03 [facility] Platelet mean volume Auto (B ld) [Entitic vol]on 06-11-2024 Platelet mean volume (Bld) [Entitic vol] 9.7 fL 9.5-13.5 [facility] Platelets Auto (Bld) [#/Vol] on 06-11-2024 Platelets (Bld) [#/Vol] 167 10 3/uL 150-450 [facility] RBC Auto (Bld) [#/Vol]on RBC (Bld) [#/Vol] 4.29 10 6/uL 4.20-5.40 [facility] Serum or plasma albumin/glob ulin mass ratioon 06-11-2024 Albumin/Globulin [Mass ratio] 1.0 {ratio} [facility] Serum or plasma anion gap de terminationon 06-11-2024 Anion gap [Moles/Vol] 14.4 mmol/L [facility] Serum or plasma methylmalona te measurement (moles/volume)on 06-11-2024 Methylmalonate [Moles/Vol] 270 nmol/L 0-378 [facility] Comment on above: This test was develo ped and its performance characteristicsdetermined by [employer]. It has not been cleared orapproved by the Food and Drug Administration.Performed at: [facility] [id number] Director: Brook Harvey MD, Phone: [phone] Serum or plasma total choles terol/high density lipoprotein (HDL) cholesterol mass samm 06-11-2024 Cholesterol.total /Cholesterol in HDL [Mass ratio] 2.6 {ratio} [facility] Comment on above: 3.3 - 4.4 LOW RISK4. 4 - 7.1 AVERAGE RISK7.1 - 11.0 MODERATE RISK>11.0 HIGH RISK Estimated glomerular filtrat ion rate (GFR) non- Americanon 04-03-2024 GFR/1.73 sq M.predicted among non-blacks MDRD (S/P/Bld) [Vol rate/Area] 31 mL/min/{1.73_m2} Low >=60 [facility] Laboratory - Chemistry and C hemistry - challengeon 04-03-2024 Calcium [Mass/Vol] 9.7 mg/dL 8.5-10.1 [facility] Chloride [Moles/Vol] 102 mmol/L 98-107 [facility] CO2 [Moles/Vol] 34.2 mmol/L High 21.0-32.0 [facility] Creatinine [Mass/Vol] 1.63 mg/dL High 0.55-1.02 [facility] GFR/1.73 sq M.predicted MDRD (S/P/Bld) [Vol rate/Area] 38 mL/min/{1.73_m2} Low >=60 [facility] Glucose [Mass/Vol] 127 mg/dL High 74-106 [facility] Potassium [Moles/Vol] 4.0 mmol/L 3.5-5.1 [facility] Sodium [Moles/Vol] 139 mmol/L 136-145 [facility] Urea nitrogen [Mass/Vol] 40.0 mg/dL High 7.0-18.0 [facility] Urea nitrogen/Creatini ne [Mass ratio] 24.5 mg/mg [facility] Serum or plasma anion gap de terminationon 04-03-2024 Anion gap [Moles/Vol] 6.8 mmol/L [facility] Estimated glomerular filtrat ion rate (GFR) non- Americanon 01-25-2024 GFR/1.73 sq M.predicted among non-blacks MDRD (S/P/Bld) [Vol rate/Area] 42 mL/min/{1.73_m2} >=60 [facility] Laboratory - Chemistry and C hemistry - challengeon 01-25-2024 Calcium [Mass/Vol] 10.2 mg/dL 8.5-10.1 [facility] Chloride [Moles/Vol] 106 mmol/L 98-107 [facility] CO2 [Moles/Vol] 28.3 mmol/L 21.0-32.0 [facility] Creatinine [Mass/Vol] 1.25 mg/dL 0.55-1.02 [facility] GFR/1.73 sq M.predicted MDRD (S/P/Bld) [Vol rate/Area] 51 mL/min/{1.73_m2} >=60 [facility] Glucose [Mass/Vol] 83 mg/dL 74-106 [facility] Potassium [Moles/Vol] 4.7 mmol/L 3.5-5.1 [facility] Sodium [Moles/Vol] 141 mmol/L 136-145 [facility] Urea nitrogen [Mass/Vol] 31.0 mg/dL 7.0-18.0 [facility] Urea nitrogen/Creatini ne [Mass ratio] 24.8 mg/mg [facility] Serum or plasma anion gap de terminationon 01-25-2024 Anion gap [Moles/Vol] 11.4 mmol/L [facility] SARS-CoV-2 (COVID-19) RNA NA A+probe Ql (Resp)on 06-17-2022 SARS-CoV-2 (COVID-19) RNA MARLON+probe Ql (Unsp spec) Negative [employer] Other CBC AUTO DIFFon 06-15-2022 BASO # 0.0 103/ul Normal 0.0-0.[address] [facility] Comment on above: Performed By: #### C BC #### [facility] [address] [place] [address] Dr. Perez Jaimes Basophils/100 WBC (Bld) 0.5 % Normal 0.2-2.[address] [facility] Comment on above: Performed By: #### C BC #### [facility] [address] [place] [address] Dr. Perez Jaimes EO # 0.1 103/ul Normal 0.0-0.[address] [facility] Comment on above: Performed By: #### C BC #### [facility] [address] [place] [address] Dr. Perez Jaimes Eosinophils/100 WBC (Bld) 1.1 % Normal 0.9-7.[address] [facility] Comment on above: Performed By: #### C BC #### [facility] [address] [place] [address] Dr. Perez Jaimes Erythrocyte distribution width (RBC) [Ratio] 12.6 % Normal 11.0-15.[address] [facility] Comment on above: Performed By: #### C BC #### [facility] [address] [place] [address] Dr. Perez Jaimes Hematocrit (Bld) [Volume fraction] 41.3 % Normal 36.0-48.[address] [facility] Comment on above: Performed By: #### C BC #### [facility] [address] [place] [address] Dr. Perez Jaimes Hemoglobin (Bld) [Mass/Vol] 12.9 g/dL Normal 12.0-16.[address] [facility] Comment on above: Performed By: #### C BC #### [facility] [address] [place] [address] Dr. Perez Jaimes IG # 0.02 10e3/ul Normal 0.00-0.[address] [facility] Comment on above: Performed By: #### C BC #### [facility] [address] [place] [address] Dr. Perez Jaimes IG % 0.3 % Normal 0.0-0.[address] [facility] Comment on above: Performed By: #### C BC #### [facility] [address] [place] [address] Dr. Perez Jaimes LYMPH # 1.3 103/ul Normal 1.2-3.[address] [facility] Comment on above: Performed By: #### C BC #### [facility] [address] [place] [address] Dr. Perez Jaimes Lymphocytes/100 WBC (Bld) 20.2 % Critically low 20.5-60.[address] [facility] Comment on above: Performed By: #### C BC #### [facility] [address] [place] [address] Dr. Perez Jaimes MANUAL DIFF REQ NO Normal [facility] Comment on above: Performed By: #### C BC #### [facility] [address] [place] [address] Dr. Perez Jaimes MCH (RBC) [Entitic mass] 29.5 pg Normal 26.7-34.[address] [facility] Comment on above: Performed By: #### C BC #### [facility] [address] [place] [address] Dr. Perez Jaimes MCHC (RBC) [Mass/Vol] 31.2 g/dL Normal 29.9-35.[address] [facility] Comment on above: Performed By: #### C BC #### [facility] [address] [place] [address] Dr. Perez Jaimes MCV (RBC) [Entitic vol] 94.5 fL Normal 81.0-99.[address] [facility] Comment on above: Performed By: #### C BC #### [facility] [address] [address] [address] Perez Jaimes MONO # 0.5 103/ul Normal 0.3-0.[address] [facility] Comment on above: Performed By: #### C BC #### [facility] [address] [address] [address] Perez Jaimes Monocytes/100 WBC (Bld) 8.7 % Normal 1.7-12.[address] [facility] Comment on above: Performed By: #### C BC #### [facility] [address] [address] [address] Perez Jaimes NEUT # 4.3 103/ul Normal 1.4-6.[address] [facility] Comment on above: Performed By: #### C BC #### [facility] [address] [place] [address] Dr. Perez Jaimes Neutrophils/100 WBC (Bld) 69.2 % Normal 43.0-75.[address] [facility] Comment on above: Performed By: #### C BC #### [facility] [address] [place] [address] Dr. Perez Jaimes Platelet mean volume (Bld) [Entitic vol] 9.6 fL Normal 9.5-13.[address] [facility] Comment on above: Performed By: #### C BC #### [facility] [address] [place] [address] Dr. Perez Jaimes PLT 178 103/ul Normal 150-[address] [facility] Comment on above: Performed By: #### C BC #### [facility] [address] [place] [address] Dr. Perez Jaimes RBC 4.37 106/ul Normal 4.20-5.[address] [facility] Comment on above: Performed By: #### C BC #### [facility] [address] [place] [address] Dr. Perez Jaimes WBC 6.2 103/ul Normal 4.0-11.[address] [facility] Comment on above: Performed By: #### C BC #### [facility] [address] [address] [address] Perez Jaimes LIPID PROFILEon 06-15-2022 CHOL-HDL RATIO NORM SEE BELOW Normal [facility] Comment on above: Result Comment: 3.3 - 4.4 LOW RISK 4.4 - 7.1 AVERAGE RISK 7.1 - 11.0 MODERATE RISK >11.0 HIGH RISK Performed By: #### B MP, LIPID #### [facility] [address] [address] [address] Perez Jaimes Cholesterol [Mass/Vol] 214 mg/dL Critically high <=[address] [facility] Comment on above: Performed By: #### B MP, LIPID #### [facility] [address] [place] [address] Dr. Perez Jaimes Cholesterol in HDL [Mass/Vol] 70 mg/dL Critically high 40-[address] [facility] Comment on above: Performed By: #### B MP, LIPID #### [facility] [address] [place] [address] Dr. Perez Jaimes Cholesterol in LDL [Mass/Vol] 109.4 mg/dL Normal [facility] Comment on above: Performed By: #### B MP, LIPID #### [facility] [address] [place] [address] Dr. Perez Jaimes Cholesterol.total /Cholesterol in HDL [Mass ratio] 3.1 {ratio} Normal [facility] Comment on above: Performed By: #### B MP, LIPID #### [facility] [address] [place] [address] Dr. Perez Jaimes HDL NORMAL > or = 60 mg/dl - LO W CARDIOVASCULAR RISK <40 mg/dl - HIGH CARDIOVASCULAR RISK Normal [facility] Comment on above: Performed By: #### B MP, LIPID #### [facility] [address] [place] [address] Dr. Perez Jaimes LDL CALC NORMAL SEE BELOW Normal [facility] Comment on above: Result Comment: <100 mg/dl OPTIMAL 100 - 129 mg/dl NEAR OR ABOVE OPTIMAL 130 - 159 mg/dl BORDERLINE HIGH 160 - 189 mg/dl HIGH >190 mg/dl VERY HIGH Performed By: #### B MP, LIPID #### [facility] [address] [address] [address] Perez Jaimes Triglyceride [Mass/Vol] 173 mg/dL Critically high <=[address] [facility] Comment on above: Performed By: #### B MP, LIPID #### [facility] [address] [address] [address] Perez Jaimes VLDL CALC 34.6 mg/dL Normal [facility] Comment on above: Performed By: #### B MP, LIPID #### [facility] [address] [place] [address] Dr. Perez Jaimes PROF CHEM 8 (BAS METB)on Anion gap [Moles/Vol] 12.6 mmol/L Normal [facility] Comment on above: Performed By: #### B MP, LIPID #### [facility] [address] [place] [address] Dr. Perez Jaimes Calcium [Mass/Vol] 9.7 mg/dL Normal 8.5-10.[address] [facility] Comment on above: Performed By: #### B MP, LIPID #### [facility] [address] [place] [address] Dr. Perez Jaimes Chloride [Moles/Vol] 103 mmol/L Normal 98-[address] [facility] Comment on above: Performed By: #### B MP, LIPID #### [facility] [address] [place] [address] Dr. Perez Jaimes CO2 [Moles/Vol] 27.0 mmol/L Normal 21.0-32.0 [facility] Comment on above: Performed By: #### B MP, LIPID #### [facility] [address] [place] [address] Dr. Perez Jaimes Creatinine [Mass/Vol] 1.32 mg/dL Critically high 0.55-1.[address] [facility] Comment on above: Performed By: #### B MP, LIPID #### [facility] [address] [place] [address] Dr. Perez Jaimes EGFR-AF MEXICAN 48 mL/min/1.73m2 Critically low >=[address] [facility] Comment on above: Performed By: #### B MP, LIPID #### [facility] [address] [address] [address] Perez Jaimes EGFR-NON AF MEXICAN 40 mL/min/1.73m2 Critically low >=[address] [facility] Comment on above: Performed By: #### B MP, LIPID #### [facility] [address] [address] [address] Perez Jaimes Glucose [Mass/Vol] 99 mg/dL Normal 74-[address] [facility] Comment on above: Performed By: #### B MP, LIPID #### [facility] [address] [address] [address] Perez Jaimes Potassium [Moles/Vol] 4.6 mmol/L Normal 3.5-5.[address] [facility] Comment on above: Performed By: #### B MP, LIPID #### [facility] [address] [address] [address] Perez Jaimes Sodium [Moles/Vol] 138 mmol/L Normal 136-[address] [facility] Comment on above: Performed By: #### B MP, LIPID #### [facility] [address] [address] [address] Perez Jaimes Urea nitrogen [Mass/Vol] 31.0 mg/dL Critically high 7.0-18.[address] [facility] Comment on above: Performed By: #### B MP, LIPID #### [facility] [address] [address] [address] Perez Jaimes Urea nitrogen/Creatini ne [Mass ratio] 23.5 mg/mg Normal [facility] Comment on above: Performed By: #### B MP, LIPID #### [facility] [address] [address] [address] Perez Jaimes MG MAMM SCREEN 3D WAI CADon 06-14-2022 MG MAMM SCREEN 3D WAI CAD Patient: SHITAL HIRSCHDemetra Exam Date: 06/14/2022 : 1950 Gender:F Ordering : DR SHAWN HIRSCH D.O. Admission #: [id number] Family : Order #: [id number] CLICK HERE TO VIEW EXAM RADIOLOGY REPORT [...] uterine cancer at age 65. LOCATION: [facility] BREAST COMPOSITION: Scattered areas fibroglandular [...] MD on 06/14/2022 at 12:41 Normal [facility] Vital Signs Date Time Vital Sign Value Performing Clinician Facility 06-09-2024 11:28-0400 Body height 154.94 cm [facility] 06-09-2024 11:28-0400 Body mass index (BMI) [Ratio] 36.4 kg/m2 [facility] 06-09-2024 11:28-0400 Body weight 87.54 kg [facility] 06-09-2024 11:28-0400 Diastolic blood pressure 72 mm[Hg] [facility] 06-09-2024 11:28-0400 Heart rate 63 /min [facility] 06-09-2024 11:28-0400 SaO2% (BldA) [Mass fraction] 97 % [facility] 06-09-2024 11:28-0400 Systolic blood pressure 128 mm[Hg] [facility] 04-21-2024 15:46-0400 Body height 154.94 cm [facility] 04-21-2024 15:46-0400 Body mass index (BMI) [Ratio] 36.3 kg/m2 [facility] 04-21-2024 15:46-0400 Body weight 87.25 kg [facility] 04-21-2024 15:46-0400 Diastolic blood pressure 64 mm[Hg] [facility] 04-21-2024 15:46-0400 Heart rate 76 /min [facility] 04-21-2024 15:46-0400 Respiratory rate 12 /min [facility] 04-21-2024 15:46-0400 Systolic blood pressure 109 mm[Hg] [facility] 03-27-2024 16:15-0400 Body height 154.94 cm [facility] 03-27-2024 16:15-0400 Body mass index (BMI) [Ratio] 38.6 kg/m2 [facility] 03-27-2024 16:15-0400 Body weight 92.75 kg [facility] 03-27-2024 16:15-0400 Diastolic blood pressure 76 mm[Hg] [facility] 03-27-2024 16:15-0400 Heart rate 72 /min [facility] 03-27-2024 16:15-0400 Respiratory rate 20 /min [facility] 03-27-2024 16:15-0400 Systolic blood pressure 152 mm[Hg] [facility] 01-23-2024 10:14-0400 Body height 154.94 cm [facility] 01-23-2024 10:14-0400 Body mass index (BMI) [Ratio] 35.3 kg/m2 [facility] 01-23-2024 10:14-0400 Body weight 84.87 kg [facility] 01-23-2024 10:14-0400 Diastolic blood pressure 78 mm[Hg] [facility] 01-23-2024 10:14-0400 Heart rate 62 /min [facility] 01-23-2024 10:14-0400 Respiratory rate 12 /min [facility] 01-23-2024 10:14-0400 Systolic blood pressure 150 mm[Hg] [facility] 10-24-2023 10:00-0500 Body height 154.94 cm Shawn Ball Other [employer] Other 10-24-2023 10:00-0500 Body mass index (BMI) [Ratio] 36.2 kg/m2 [employer] Other [employer] Other 10-24-2023 10:00-0500 Body weight 86.91 kg Shawn [employer] Other [employer] Other 10-24-2023 10:00-0500 Diastolic blood pressure 80 mm[Hg] Shawn [employer] Other [employer] Other 10-24-2023 10:00-0500 Respiratory rate 12 /min [employer] Other [employer] Other 10-24-2023 10:00-0500 Systolic blood pressure 139 mm[Hg] Shawn [employer] Other [employer] Other Encounters Encounter Date Encounter Type Care Provider Facility Start: 06-24-2024 End: 06-24-2024 ambulatory [facility] Work Phone: Start: 06-24-2024 End: 06-24-2024 Patient encounter procedure [facility] Work Phone: Start: 06-11-2024 Non-patient / Non-visit [facility] Work Phone: Start: 06-09-2024 End: 06-09-2024 ambulatory [facility] Work Phone: Start: 06-09-2024 End: 06-09-2024 Patient encounter procedure [facility] Phys[facility] Work Phone: Start: 05-22-2024 End: 05-22-2024 ambulatory ISABEL NGUYEN Not Available Start: 04-21-2024 End: 04-21-2024 Patient encounter procedure [facility] Work Phone: Start: 04-03-2024 Non-patient / [facility] Work Phone: Start: 03-27-2024 End: 03-27-2024 ambulatory [facility] Work Phone: Start: 03-27-2024 End: 03-27-2024 Patient encounter procedure [facility] Work Phone: Start: 03-06-2024 End: 03-06-2024 ambulatory ISABEL NGUYEN Not Available Start: 01-25-2024 Non-patient / Non-visit [facility] Work Phone: Start: 01-23-2024 End: 01-23-2024 ambulatory [facility] Work Phone: Start: 01-23-2024 End: 01-23-2024 Patient encounter procedure [facility] Phys[facility] Work Phone: Start: 12-27-2023 End: 12-27-2023 ambulatory ISABEL NGUYEN Not Available Start: 10-24-2023 End: 10-24-2023 ambulatory Shawn Ball Other [employer] Other Start: 10-24-2023 Office outpatient vi sit 25 minutes Shawn Ball [facility] Start: 10-09-2023 End: 10-09-2023 ambulatory Shawn Ball Other [employer] Other Start: 10-09-2023 Telephone encounter Shawn Ball [facility] Start: 06-21-2023 End: 06-21-2023 ambulatory Shawn Ball Other [employer] Other Start: 06-21-2023 Telephone encounter Shawn Ball [facility] Start: 06-19-2023 End: 06-19-2023 ambulatory Shawn Ball Other [employer] Other Start: 06-19-2023 Nursing evaluation o f patient and report Shawn Hirsch [facility] Start: 05-28-2023 End: 05-28-2023 ambulatory Shawn Hirsch Other [employer] Other Start: 05-28-2023 Telephone encounter Shawn [facility] Start: 02-12-2023 End: 03-14-2023 ambulatory ADHIKARI H FAWWAD Facility:[facility] Start: 01-15-2023 End: 02-09-2023 ambulatory ADHIKARI H FAWWAD Facility:[facility] Start: 01-08-2023 End: 01-08-2023 ambulatory Shawn iHrsch Other [employer] Other Start: 01-08-2023 Telephone encounter Shawn Vince [facility] Start: 12-13-2022 End: 01-12-2023 ambulatory ADHIKARI H FAWWAD Facility:[facility] Start: 11-15-2022 End: 12-13-2022 ambulatory ADHIKARI H FAWWAD Facility:[facility] Start: 10-16-2022 End: 11-14-2022 ambulatory ADHIKARI H FAWWAD Facility:[facility] Start: 09-14-2022 End: 10-15-2022 ambulatory ADHIKARI H FAWWAD Facility:[facility] Start: 08-15-2022 End: 09-13-2022 ambulatory ADHIKARI H FAWWAD Facility:[facility] Start: 07-26-2022 End: 08-14-[address] SHAWN HIRSCH Facility:[facility] Start: 06-17-2022 End: 06-17-2022 ambulatory Shama Nice Other [employer] Other Start: 06-17-2022 Nursing evaluation o f patient and report [facility] Start: 06-15-2022 End: 06-16-[address] SHAWN HIRSCH Facility:[facility] Start: 06-15-2022 End: 07-15-2022 ambulatory ADHIKARI H FAWWAD Facility:[facility] Start: 06-14-2022 End: 06-15-[address] SHAWN HIRSCH Facility:[facility] Start: 05-23-2022 Adult health examination Vasquez Hirsch Other [employer] Other Start: 05-15-2022 End: 06-14-2022 ambulatory SHAIKH Graciela SMITH Facility:[facility] Start: 04-19-2022 End: 05-12-2022 ambulatory SHAIKH Graciela SMITH Facility:[facility] Start: 04-14-2022 End: 04-15-2022 ambulatory SHAIKH Graciela SMITH Facility:[facility] Start: 03-30-2020 Gynecological examin ation normal Shawn Hirsch Other [place] [employer] Other Procedures Date Procedure Procedure Detail Performing [...] lic 2000 panel - Serum or Plasma [facility] enter MR Brain WO contrast [facility] Immunizations Immunization Date Immunization Notes Care Provider Fa cility 06-24-2024 influenza, high dose seasonal, preservative-free [facility] 06-19-2023 influenza, high dose seasonal, preservative-free Shawn Hirsch Other [employer] Other 06-19-2023 influenza virus vaccine, unspecified formulation [facility] 07-26-2022 influenza virus vaccine, split virus (incl. purified surface antigen) Shawn Hirsch Other [facility] Other 07-25-2022 influenza virus vaccine, unspecified formulation [facility] 07-25-2022 influenza, high dose seasonal, preservative-free Shawn Hirsch Other [facility] Other 08-08-2021 influenza virus vaccine, split virus (incl. purified surface antigen) Shawn Vince Other [facility] Other 08-08-2021 influenza virus vaccine, unspecified formulation [facility] 01-12-2021 COVID-19 Vaccine Pfi zer - Documentation Purposes Only Shawn Vince Other [facility] 07-06-2020 influenza virus vaccine, split virus (incl. purified surface antigen) Shawn Vince Other [facility] Other 07-06-2020 influenza virus vaccine, unspecified formulation [facility] 07-29-2019 influenza virus vaccine, split virus (incl. purified surface antigen) Shawn Vince Other [facility] Other 07-29-2019 influenza virus vaccine, unspecified formulation [facility] 07-09-2018 influenza virus vaccine, split virus (incl. purified surface antigen) Shawn Vince Other [facility] Other 07-09-2018 influenza virus vaccine, unspecified formulation [facility] 04-03-2018 influenza virus vaccine, split virus (incl. purified surface antigen) Shawn Vince Other [facility] Other 04-03-2018 influenza virus vaccine, unspecified formulation [facility] 01-11-2018 pneumococcal Conjuga te, unspecified formulation; Translations: [Need for prophylactic vaccination against Streptococcus pneumoniae (pneumococcus)] Shawn Hirsch Other [facility] Other 01-11-2018 pneumococcal polysaccharide vaccine, 23 valent Shawn Hirsch Other [facility] 08-03-2017 influenza virus vaccine, split virus (incl. purified surface antigen) Shawn Hirsch Other [facility] Other 08-03-2017 influenza virus vaccine, unspecified formulation [facility] 01-03-2017 pneumococcal conjuga te vaccine, 13 valent Shawn Hirsch Other [facility] 09-27-2016 influenza virus vaccine, split virus (incl. purified surface antigen) Shawn Hirsch Other [employer] Other 09-27-2016 influenza virus vaccine, unspecified formulation [facility] 07-23-2015 tetanus and diphther ia toxoids, adsorbed, preservative free, for adult use (5 Lf of tetanus toxoid and 2 Lf of diphtheria toxoid) Shawn Hirsch Other [facility] 07-30-2013 tetanus and diphther ia toxoids, adsorbed, preservative free, for adult use (5 Lf of tetanus toxoid and 2 Lf of diphtheria toxoid) Shawn Hirsch Other [facility] Payers Date Payer Category Payer Unknown [id number] 1958 Medicaid [id number] . [id number] 1958 Medicare [id number] 1950 Unknown [id number] 2.16.84 [id number] 1950 Unknown [id number] 2.16.84 0.1.871262.3.579.2.593 1950 Unknown [id number] 2.16.84 0.1.294287.3.579.2.593 1950 Unknown [id number] 2.16.84 0.1.908382.3.579.2.593 1950 Unknown [id number] 2.16.84 0.1.711951.3.579.2.593 1950 Unknown [id number] 2.16.84 0.1.886339.3.579.2.593 1950 Unknown [id number] 2.16.84 0.1.840691.3.579.2.593 1950 Unknown [id number] 2.16.84 0.1.176042.3.579.2.593 1950 Unknown [id number] 2.16.84 0.1.971422.3.579.2.593 1950 Unknown [id number] 2.16.84 0.1.394114.3.579.2.593 1950 Unknown [id number] 2.16.84 0.1.332533.3.579.2.593 1950 Unknown [id number] 2.16.84 0.1.011884.3.579.2.593 1950 Unknown [id number] 2.16.84 0.1.086558.3.579.2.593 1950 Unknown [id number] 2.16.84 0.1.580008.3.579.2.593 1950 Unknown [id number] 2.16.84 0.1.333144.3.579.2.1259 1950 Unknown [id number] 2.16.84 0.1.133089.3.579.2.1259 1950 Unknown [id number] 2.16.84 0.1.780899.3.579.2.1259 Medicare [id number] 2.1 [id number] Social History Date Type Detail Facility Sex Assigned At [employer] Other Start: 01-23-2024 End: 06-24-2024 Tobacco smoking status NHIS Never smoked tobacco (finding) [facility] Start: 1950 Sex Assigned At Female F [facility] Clinical Notes 06-17-2022 to 10-24-2023 Note Date [...] are maintaining regular scheduled appts with 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 No bleeding complications Oct, Raynaud's phenomenon [...] use, the patient reduces the risk for PR, CVA, HTN, cardiac dysrhythmias and sudden cardiac [...] time daily w/ sister and disabled nephew. [employer] Other 09-07-2023 Evaluation note* Encounter Date Diagnosis Assessment Notes Treatment Notes Treatment Clinical Notes Jun, Primary hypertension (ICD-10 - I10) [employer] Other 08-14-2023 Evaluation note* Encounter Date Diagnosis Assessment Notes Treatment Notes Treatment Clinical Notes May, Primary hypertension (ICD-10 - I10) [employer] Other 09-03-2022 Evaluation note* Encounter Date Diagnosis Assessment Notes Treatment Notes Treatment Clinical Notes Jun, Contact with and (suspected) exposure to covid-19 (ICD-10 - Z20.822) [employer] Other Evaluation [facility] [employer] Other Evaluation note* Diagnosis Onset Date Resolution Status Chronic venous insufficiency acute ERIS (generalized anxiety disorder) acute Obesity acute GERARD (obstructive sleep apnea) acute Paroxysmal atrial fibrillation acute Pure hypercholesterolemia ac [place] Raynaud's phenomenon without gangrene acute Stage 3b chronic kidney disease acute [facility] Work Phone: Evaluation note* Diagnosis Onset Date Resolution Status Chronic venous insufficiency acute ERIS (generalized anxiety disorder) acute Obesity acute GERARD (obstructive sleep apnea) acute Paroxysmal atrial fibrillation acute Pure hypercholesterolemia ac [place] Raynaud's phenomenon without gangrene acute Stage 3b chronic kidney disease acute Chronic venous insufficiency acute GERARD (obstructive sleep apnea) acute Paroxysmal atrial fibrillation acute Raynaud's phenomenon without gangrene acute Stage 3b chronic kidney disease acute [facility] Work Phone: Evaluation note* Diagnosis Onset Date [...] acute Encounter for subsequent [facility] wellness visit in Medicare patient noneactive [facility] Work Phone: Evaluation note* Diagnosis Onset Date [...] Essential hypertension acute Mild cognitive impairment ac [place] Obesity acute GERARD (obstructive sleep apnea) acute Paroxysmal atrial fibrillation acute Raynaud's phenomenon without gangrene acute Screening mammogram for breast cancer acute Stage 3b chronic kidney disease acute Medicare annual wellness visit, subsequent noneactive [facility] Work Phone: History general Narrative - Reported* Type Description Date Medical History CVA in 2011 Medical History hypertension Medical History blood clot in leg and lung in 20 12 Surgical History ankle fracture repair 1997 Surgical History cholecystectomy 1996 Surgical History D&C 2010 Hospitalization History see above surgical [employer] Other History general Narrative - Reported* Type [...] D&C 2009 Hospitalization History see above surgical GFS IT Other Summary Purpose Family History Relationship Condition [...] pital DATE CREATED AUTHOR 'Aliza MANUEL 05/24/2024 [facility] EPIC Care Teams (unrecognized [...] BE BASED ON THE PRIMARY CLINICAL RECORDS. [facility]. provides no warranty or guarantee of the accuracy or completeness of information in this document.
== END 2024-06-27 10:45 | disposition home or self-care (01) ==
LOC: MRI 10:45
PROVIDERS: PCP Internal Medicine; Visit Provider Internal Medicine
DX: G31.84 Mild cognitive impairment of uncertain or unknown etiology (principal); N18.32 Chronic kidney disease, stage 3b; I48.0 Paroxysmal atrial fibrillation; I12.9 Hypertensive chronic kidney disease with stage 1 through stage 4 chronic kidney disease, or unspecified chronic kidney disease
CPT/HCPCS: 70551

== ENCOUNTER 2024-07-15 01:16 | Outpatient (RCR) | payer MEDICARE, SELFPAY | END 2024-08-14 23:37 | disposition home or self-care (01) | LOC: MM 01:16 | PROVIDERS: PCP Internal Medicine; Visit Provider Internal Medicine | DX: Z51.81 Encounter for therapeutic drug level monitoring (principal); Z79.01 Long term (current) use of anticoagulants; I82.409 Acute embolism and thrombosis of unspecified deep veins of unspecified lower extremity | CPT/HCPCS: 85610; G0463 ==

== ENCOUNTER 2024-08-15 10:08 | Outpatient (RCR) | payer MEDICARE, SELFPAY | END 2024-09-13 23:59 | disposition home or self-care (01) | LOC: MM 10:08 | PROVIDERS: PCP Internal Medicine; Visit Provider Internal Medicine | DX: Z51.81 Encounter for therapeutic drug level monitoring (principal); Z79.01 Long term (current) use of anticoagulants; I82.409 Acute embolism and thrombosis of unspecified deep veins of unspecified lower extremity | CPT/HCPCS: 85610; G0463 ==

== ENCOUNTER 2024-09-14 10:28 | Outpatient (RCR) | payer MEDICARE, SELFPAY | END 2024-10-14 09:05 | disposition home or self-care (01) | LOC: MM 10:28 | PROVIDERS: PCP Internal Medicine; Visit Provider Internal Medicine | DX: Z51.81 Encounter for therapeutic drug level monitoring (principal); Z79.01 Long term (current) use of anticoagulants | CPT/HCPCS: 85610; G0463 ==

== ENCOUNTER 2024-10-16 00:08 | Outpatient (RCR) | payer MEDICARE, SELFPAY | END 2024-11-14 14:40 | disposition home or self-care (01) | LOC: MM 00:08 | PROVIDERS: PCP Internal Medicine; Visit Provider Internal Medicine | DX: Z51.81 Encounter for therapeutic drug level monitoring (principal); Z79.01 Long term (current) use of anticoagulants ==

== ENCOUNTER 2024-11-17 02:25 | Outpatient (RCR) | payer MEDICARE, SELFPAY | END 2024-12-12 10:35 | disposition home or self-care (01) | LOC: MM 02:25 | PROVIDERS: PCP Internal Medicine; Visit Provider Internal Medicine | DX: Z51.81 Encounter for therapeutic drug level monitoring (principal); Z79.01 Long term (current) use of anticoagulants ==

== ENCOUNTER 2024-12-13 07:18 | Outpatient (RCR) | payer MEDICARE, SELFPAY | END 2025-01-09 10:07 | disposition home or self-care (01) | LOC: MM 07:18 | PROVIDERS: PCP Internal Medicine; Visit Provider Internal Medicine | DX: Z51.81 Encounter for therapeutic drug level monitoring (principal); Z79.01 Long term (current) use of anticoagulants ==

== ENCOUNTER 2025-01-13 04:16 | Outpatient (RCR) | payer MEDICARE, SELFPAY | END 2025-02-11 15:44 | disposition home or self-care (01) | LOC: MM 04:16 | PROVIDERS: PCP Internal Medicine; Visit Provider Internal Medicine | DX: Z51.81 Encounter for therapeutic drug level monitoring (principal); Z79.01 Long term (current) use of anticoagulants ==

== ENCOUNTER 2025-02-12 04:38 | Outpatient (RCR) | payer MEDICARE, SELFPAY | END 2025-03-13 15:46 | disposition home or self-care (01) | LOC: MM 04:38 | PROVIDERS: PCP Internal Medicine; Visit Provider Internal Medicine | DX: Z51.81 Encounter for therapeutic drug level monitoring (principal); Z79.01 Long term (current) use of anticoagulants ==

== ENCOUNTER 2025-03-15 08:15 | Outpatient (RCR) | payer MEDICARE, SELFPAY | END 2025-03-17 10:11 | disposition home or self-care (01) | LOC: MM 08:15 | PROVIDERS: PCP Internal Medicine; Visit Provider Internal Medicine | DX: Z51.81 Encounter for therapeutic drug level monitoring (principal); Z79.01 Long term (current) use of anticoagulants ==